=== PATIENT | female | born 1980 | race Caucasian/White ===

== ENCOUNTER 2016-08-06 13:27 | Observation (INO) | payer MEDICAID, OTHER ==
[~2016-08-06] VITALS: Ht 160 cm; Wt 95.5 kg
[~2016-08-06 13:27] MED LIST: ALB6.8IN; ALBU17AE3 IH; CEFP250T2; CLIN300C3 PO; CPR500T PO; CYCL10TA9 PO; DICY20TA57 PO; ESTR1TAB24 PO; HYDR-707 PO; HYOS0.1216 PO; IBP200T; IBP800T PO; METH4TAB PO; NAPR-243 PO; NITR100C3 PO; OXYC-12 PO; PNT40TEC PO; PRM25T PO; PROP1TAB77; PROP1TAB77 PO; SUCR1TAB23 PO; SULF1TAB34 PO; [UNRECOGNIZED DRUG - CODE] TP
--- OUTSIDE RECORDS SUMMARY | 2016-08-06 13:36 | XMS REPORT | Continuity of Care Document ---
Author Author [facility] Organization [facility] Address Unknown Phone Unavailable Care Team Providers Care Customer Care Voice Consultant Name Role Phone HEVER DOHERTY MD PCP Insurance Providers Payer Name Policy Number Subscriber Name Relationship Self Pay Yuko Aviles 19 Self / Same As Patient Advance Directives Directive Response Recorded Date/Time Advance Directives No 08/20/14 3:51pm Health Care Power of Adult High School Instructor No 08/20/14 3:51pm Organ Donor No 08/20/14 3:51pm Resuscitation Status Full Code 08/20/14 3:51pm Problems Medical Problems Problem Onset Date Status GERD (gastroesophageal reflux disease) Unknown Active Gastritis Unknown Active Medications Medication Dose Route Sig Days/Qty Instructions Order Date Discontinued Date Status Ibuprofen 07/21/08 08/16/09 Discontinued Albuterol 07/21/08 08/14/11 Discontinued Cefprozil 11/11/08 08/16/09 Discontinued Propoxyphene HCl/Acetaminophen 02/08/09 08/16/09 Discontinued Naproxen 1 Each PO TID PRN 20 Qty FOR PAIN 08/17/09 03/20/10 Discontinued Acetaminophen/Hydrocodone Bitart 1 Each PO Q 4 - 6 HR PRN 10 Qty 03/20/10 Discontinued Ibuprofen 1 Each PO THREE TIMES A DAY 10 Qty 12/21/09 03/20/10 Discontinued Dicyclomine Hcl 1 Each PO NEEDED 03/20/10 08/14/11 Discontinued Promethazine HCl 1 Tab PO EVERY 6 HOURS 30 Qty 03/27/10 08/14/11 Discontinued Estradiol 1 Mg PO DAILY 30 Qty 03/27/10 08/14/11 Discontinued Nitrofurantoin Macrocrystals 1 Cap PO TWICE A DAY 30 Qty Clcr <60 mL/ minute: Contraindicated 04/07/10 08/14/11 Discontinued Propoxyphene HCl/Acetaminophen 1 - 2 Each PO Q6HR PRN 04/07/1008/13 Discontinued Hyoscyamine Sulfate 1 Each PO Q6HR PRN 04/07/10 08/14/11 Discontinued Sulfamethoxazole/Trimethoprim 1 Tab PO TWICE A DAY 08/14/11 Discontinued Ciprofloxacin 1 Tab PO TWICE A DAY 08/14/11 01/27/12 Discontinued Albuterol 2 Puff IH NEEDED 08/14/11 Active Clindamycin HCl 1 Each PO FOUR TIMES DAILY 40 Qty 08/14/11 01/27/12 Discontinued Methylprednisolone 0 PO DIRECTED 1 Qty 08/14/11 01/27/12 Discontinued Ciclopirox Olamine 0 TP TWICE A DAY 1 Qty APPLY TO AFFECTED AREA(S) 08/1301/27/12 Discontinued Oxycodone Hcl/Acetaminophen 1 - 2 Each PO EVERY 6 HOURS PRN 14 Qty 04/17 Active Cyclobenzaprine HCl (Flexeril) 1 Each PO Q8HR PRN 10 Qty 05/16/12 Active Methylprednisolone 0 PO DIRECTED 1 Qty 05/16/12 Active Pantoprazole Sod 40 Mg PO DAILY 14 Qty 08/20/14 Active Sucralfate 1 Gm PO FOUR TIMES DAILY 40 Qty 08/20/14 Active Social History Social History Problem Response Recorded Date/Time Alcohol Use Occasionally Uses 08/20/2014 3:51pm Recreational Drug Use No 08/20/2014 3:51pm Recent Foreign Travel No 08/20/2014 3:45pm Recent Infectious Disease Exposure No 08/20/2014 3:45pm Hospitalization with Isolation Denies 08/20/2014 3:45pm Sexually Transmitted Disease No 08/20/2014 3:51pm HIV/AIDS No 08/20/2014 3:51pm Smoking Status Current Everyday Smoker 08/20/2014 3:51pm Do you dip or chew tobacco? No 08/20/2014 3:51pm Query Response Start Date Stop Date Smoking Status Current Everyday Smoker Hospital Discharge Instructions No hospital discharge instructions. Plan of Care No plan of care. Functional Status No functional status results. Allergies, Adverse Reactions, Alerts Allergen Type Severity Reaction Status Last Updated ketorolac tromethamine Allergy Mild Active 05/16/12 Iron Allergy Unknown Active 07/11/06 folic acid ([id number]) Allergy Unknown Active 07/11/06 Codeine Allergy Unknown Active 09/12/05 tramadol Allergy Unknown Active 09/12/05 butorphanol ([id number]) Allergy LOST SIGHT Active 03/20/10 penicillin G Allergy Unknown Active 07/11/06 latex Allergy Unknown Active 07/11/06 Immunizations Name Given Type Hepatitis A Yes Historical Hepatitis B Yes Historical Tetanus Booster (TDap) Unknown Historical Vital Signs Acute Vital Signs Vital Response Date/Time Temperature (Fahrenheit) 98 degrees F (97.6 - 99.5) Temperature (Calculated Celsius) 36.6696 degrees C (36.4 - 37.5) Temperature Source Temporal Pulse Rate (adult) 91 bpm (60 - 90) Respiratory Rate 20 bpm (12 - 24) O2 Sat by Pulse Oximetry 98 % (88 - 100) Blood Pressure 109/80 mm Hg Pain Pain Intensity 10 Height (Feet) 5 feet Height (Inches) 3 inches Height (Calculated Centimeters) 160.561023 cm Weight (Pounds) 200 pounds Weight (Calculated Kilograms) 90.933106 kilograms Calculated BMI 35.42 Results Laboratory Results Test Name Result Units Flags Reference Collection Date/Time Result Date/ Time Comments White Blood Count 11.8 10^3/uL H 4.3-11.0 08/20/2014 4:15pm 08/20/2014 4: 21pm Red Blood Count 4.51 10^6/uL 4.35-5.85 08/20/2014 4:15pm 08/20/2014 4: 21pm Hemoglobin 14.5 G/DL 11.5-16.0 08/20/2014 4:15pm 08/20/2014 4:21pm Hematocrit 42 % 35-52 08/20/2014 4:15pm 08/20/2014 4:21pm Mean Corpuscular Volume 94 FL 80-99 08/20/2014 4:1508/20/2014 4: 21pm Mean Corpuscular Hemoglobin 32 PG 25-34 08/20/2014 4:1508/20/2014 4: 21pm Mean Corpuscular Hemoglobin Concent 34 G/DL 32-36 08/20/2014 4:15 4:21pm Red Cell Distribution Width 12.4 % 10.0-14.5 08/20/2014 4:152014 4:21pm Platelet Count 277 10^3/uL 130-400 08/20/2014 4:1508/20/2014 4:21pm Mean Platelet Volume 10.9 FL H 7.4-10.4 08/20/2014 4:1508/20/2014 4: 21pm Neutrophils (%) (Auto) 61 % 42-75 08/20/2014 4:1508/20/2014 4:21pm Lymphocytes (%) (Auto) 30 % 12-44 08/20/2014 4:1508/20/2014 4:21pm Monocytes (%) (Auto) 7 % 0-12 08/20/2014 4:1508/20/2014 4:21pm Eosinophils (%) (Auto) 2 % 0-10 08/20/2014 4:1508/20/2014 4:21pm Basophils (%) (Auto) 1 % 0-10 08/20/2014 4:1508/20/2014 4:21pm Neutrophils # (Auto) 7.2 X 10^3 1.8-7.8 08/20/2014 4:1508/20/2014 4: 21pm Lymphocytes # (Auto) 3.5 X 10^3 1.0-4.0 08/20/2014 4:1508/20/2014 4: 21pm Monocytes # (Auto) 0.8 X 10^3 0.0-1.0 08/20/2014 4:1508/20/2014 4: 21pm Eosinophils # (Auto) 0.3 10^3/uL 0.0-0.3 08/20/2014 4:15pm 08/20/2014 4 :21pm Basophils # (Auto) 0.1 10^3/uL 0.0-0.1 08/20/2014 4:15pm 08/20/2014 4: 21pm Urine Color YELLOW 08/20/2014 4:00pm 08/20/2014 4:23pm Urine Clarity CLEAR 08/20/2014 4:00pm 08/20/2014 4:23pm Urine pH 7 5-9 08/20/2014 4:00pm 08/20/2014 4:23pm Urine Specific [place] 1.010 * 1.016-1.022 08/20/2014 4:00pm 2014 4:23pm Urine Protein NEGATIVE NEGATIVE 08/20/2014 4:00pm 08/20/2014 4:23pm Urine Glucose (UA) NEGATIVE NEGATIVE 08/20/2014 4:00pm 08/20/2014 4: 23pm Urine RBC (Auto) 2+ * NEGATIVE 08/20/2014 4:00pm 08/20/2014 4:23pm Urine Ketones NEGATIVE NEGATIVE 08/20/2014 4:00pm 08/20/2014 4:23pm Urine Nitrite NEGATIVE NEGATIVE 08/20/2014 4:00pm 08/20/2014 4:23pm Urine Bilirubin NEGATIVE NEGATIVE 08/20/2014 4:00pm 08/20/2014 4: 23pm Urine Urobilinogen NORMAL MG/DL NORMAL 08/20/2014 4:00pm 08/20/2014 4: 23pm Urine Leukocyte Esterase NEGATIVE NEGATIVE 08/20/2014 4:00pm 2014 4:23pm Urine RBC 2-5 /HPF * 08/20/2014 4:00pm 08/20/2014 4:23pm Urine WBC RARE /HPF 08/20/2014 4:00pm 08/20/2014 4:23pm Urine Bacteria NEGATIVE /HPF 08/20/2014 4:00pm 08/20/2014 4:23pm Urine Squamous Epithelial Cells 2-5 /HPF 08/20/2014 4:00pm 2014 4:23pm Urine Crystals NONE /LPF 08/20/2014 4:00pm 08/20/2014 4:23pm Urine Casts NONE /LPF 08/20/2014 4:00pm 08/20/2014 4:23pm Urine Mucus NEGATIVE /LPF 08/20/2014 4:00pm 08/20/2014 4:23pm Urine Culture Indicated NO 08/20/2014 4:00pm 08/20/2014 4:23pm Sodium Level 142 MMOL/L 135-145 08/20/2014 4:1508/20/2014 5:02pm Potassium Level 4.6 MMOL/L 3.6-5.0 08/20/2014 4:08/20/2014 5:02pm SPECIMEN WAS SLIGHTLY HEMOLYZED Chloride Level 108 MMOL/L H 98-107 08/20/2014 4:1508/20/2014 5:02pm Carbon Dioxide Level 23 MMOL/L 21-32 08/20/2014 4:08/20/2014 5: 02pm Blood Urea Nitrogen 10 MG/DL 7-18 08/20/2014 4:08/20/2014 5:02pm Creatinine 0.72 MG/DL 0.60-1.30 08/20/2014 4:08/20/2014 5:02pm BUN/Creatinine Ratio 14 08/20/2014 4:1508/20/2014 5:02pm Estimat Glomerular Filtration Rate > 60 08/20/2014 4:2014 5:02pm GFR INTERPRETIVE DATA UNITS FOR ESTIMATED GFR (eGFR): mL/min/1.73 M2 REFERENCE RANGE FOR ESTIMATED GFR (eGFR) eGFR NORMAL eGFR >60 MODERATELY DECREASED eGFR 30-59 SEVERLY DECREASED eGFR 15-29 KIDNEY FAILURE <15 (OR DIALYSIS) Glucose Level 80 MG/DL 70-105 08/20/2014 4:08/20/2014 5:02pm Calcium Level 9.9 MG/DL 8.5-10.1 08/20/2014 4:08/20/2014 5:02pm Total Bilirubin 0.4 MG/DL 0.1-1.0 08/20/2014 4:08/20/2014 5:02pm Alkaline Phosphatase 73 U/L 40-136 08/20/2014 4:08/20/2014 5:02pm Aspartate Amino Transf (AST/SGOT) 23 U/L 5-34 08/20/2014 4:2014 5:02pm Alanine Aminotransferase (ALT/SGPT) 23 U/L 0-55 08/20/2014 4:08/20 5:02pm Total Protein 7.6 G/DL 6.4-8.2 08/20/2014 4:08/20/2014 5:02pm Albumin 4.4 G/DL 3.2-4.5 08/20/2014 4:15pm 08/20/2014 5:02pm Lipase 17 U/L 8-78 08/20/2014 4:15pm 08/20/2014 5:02pm Procedures No known history of procedures. Encounters Encounter Location Date/Time Departed Emergency Room [facility] 08/20/14 2:10pm Recent Diagnosis
[2016-08-06 14:20] LABS: BASOPHILS % (AUTO) 0 % (0-10); EOSINOPHILS # (AUTO) 0.2 10^3/uL (0.0-0.3); EOSINOPHILS % (AUTO) 1 % (0-10); LYMPHOCYTES # (AUTO) 1.9 X 10^3 (1.0-4.0); LYMPHOCYTES % (AUTO) 15 % (12-44); MEAN CORPUSCULAR HEMOGLOBIN 32 PG (25-34); MEAN CORPUSCULAR HGB CONC 35 G/DL (32-36); MEAN CORPUSCULAR VOLUME 92 FL (80-99); MEAN PLATELET VOLUME 10.8 FL (7.4-10.4); MONOCYTES # (AUTO) 1.5 X 10^3 (0.0-1.0); MONOCYTES % (AUTO) 11 % (0-12); NEUTROPHILS # (AUTO) 9.7 X 10^3 (1.8-7.8); NEUTROPHILS % (AUTO) 73 % (42-75); PLATELET COUNT 281 10^3/uL (130-400); RED BLOOD COUNT 4.83 10^6/uL (4.35-5.85); RED CELL DISTRIBUTION WIDTH 12.6 % (10.0-14.5); WHITE BLOOD COUNT 13.4 10^3/uL (4.3-11.0)
[2016-08-06] MEDS ORDERED: CIPR-225 PO (14:23)
[2016-08-06] MEDS ORDERED: ESTROGEN (14:23)
[2016-08-06 14:32] LABS: PROTHROMBIN TIME PATIENT 12.4 SEC (12.2-14.7)
[2016-08-06 14:40] LABS: ALANINE AMINOTRANSFERASE 29 U/L (0-55); ALBUMIN 4.8 G/DL (3.2-4.5); ANION GAP 12 MMOL/L (5-14); ASPARTATE AMINO TRANSFERASE 24 U/L (5-34); BILIRUBIN,TOTAL 0.4 MG/DL (0.1-1.0); BLOOD UREA NITROGEN 14 MG/DL (7-18); BUN/CREATININE RATIO 8; CALCIUM 9.8 MG/DL (8.5-10.1); CARBON DIOXIDE 22 MMOL/L (21-32); CHLORIDE 107 MMOL/L (98-107); CREATININE SERUM 1.72 MG/DL (0.60-1.30); GFR ESTIMATED 34; GLUCOSE 95 MG/DL (70-105); MAGNESIUM 2.3 MG/DL (1.8-2.4); POTASSIUM 3.6 MMOL/L (3.6-5.0); SODIUM 141 MMOL/L (135-145); TOTAL PROTEIN 7.6 G/DL (6.4-8.2)
--- NOTE | 2016-08-06 14:42 | Diagnostic Imaging Report ---
Portable erect AP chest at 2:22 p.m. INDICATION: Chest and shoulder pain. FINDINGS: The heart size is within normal limits and stable when compared to 04/06/10. The lungs are generally clear. There is no sign of failure, pneumonia or pleural effusion to suggest an acute abnormality. The mediastinum is not widened. The osseous structures are intact. IMPRESSION: There is no evidence for an acute cardiopulmonary abnormality. Dictated by: Dictated on workstation # [id number]
[2016-08-06 14:46] LABS: MYOGLOBIN SERUM 44.5 NG/ML (10.0-92.0)
--- NOTE | 2016-08-06 15:01 | ED General ---
General Chief Complaint: Chest Pain Stated Complaint: CHEST PAIN Nursing Triage Note: PT STATES MID CHEST PAIN, RT SHOULDER PAIN, AND NECK PAIN THAT STARTED LAST NIGHT. "IT FEELS HEAVY ALL OVER." Nursing Sepsis Screen: No Definite Risk Source of Information: Patient Exam Limitations: No Limitations History of Present Illness Time Seen by Provider: 15:01 Initial Comments 35-year-old female patient presents to the emergency department with complaints of mid chest pain/heaviness radiating to the right shoulder, right chest, and right neck. Onset yesterday with increased symptoms today. Reports pain worse with palpation and deep breath. Also worse with movement. Does complain of heartburn, nausea, vomiting. Decreased appetite for several days. Timing/Duration: 12-24 Hours Modifying Factors: worse with Movement, worse with Other (worse with palpation and deep breath) Allergies and Home Medications Allergies Coded Allergies: ketorolac tromethamine (Verified Allergy, Mild, 05/16/12) Iodinated Contrast Media - Oral and (Unverified Allergy, Unknown, 04/24/15 ) butorphanol (Unverified Allergy, Unknown, LOST SIGHT, 04/24/15) codeine (Verified Allergy, Unknown, 09/12/05) folic acid (Verified Allergy, Unknown, 07/11/06) iron (Verified Allergy, Unknown, 07/11/06) latex (Verified Allergy, Unknown, 07/11/06) morphine (Verified Allergy, Unknown, 08/07/16) penicillin G (Verified Allergy, Unknown, 07/11/06) tramadol (Verified Allergy, Unknown, 09/12/05) Home Medications (Reported) Albuterol 17 Gm Inh 2 PUFF IH PRN (Reported) Ciprofloxacin HCl 500 Mg Tablet 500 MG PO (Reported) Pantoprazole Sod 40 Mg Tab #14 40 MG PO DAILY Prescribed by: NISH AVENDAÑO on 08/20/14 8931 Constitutional: No chills, No diaphoresis, No dizziness, No fever, No malaise EENTM: no symptoms reported Respiratory: No cough, No dyspnea on exertion, No short of breath, No stridor, No wheezing Cardiovascular: chest painNo edema, No palpitations, No syncope Gastrointestinal: abdominal pain (epigastric pain)No constipation, No diarrhea , No dysphagia, No hematemesis, heartburn loss of appetiteNo melena, nauseaNo vomiting Musculoskeletal: joint painNo joint swelling, muscle pain muscle stiffness neck pain Skin: no symptoms reported Psychiatric/Neurological: Denies Headache, Denies Numbness, Denies Paresthesia , Denies Seizure, Denies Tingling, Denies Weakness All Other Systems Reviewed Negative Unless Noted: Yes (Negative excepted noted.) Past Cfzhejv-Bsyxey-Lfykbf Hx Patient Social History Alcohol Use: Rarely Uses Recreational Drug Use: No Smoking Status: Current Everyday Smoker Type Used: Cigarettes Recent Foreign Travel: No Contact w/Someone Who Travel: No Recent Infectious Disease Expo: No Recent Hopitalizations: No (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 LAVH WITH BSO ) Immunizations Up To Date Tetanus Booster (TDap): Unknown PED Vaccines UTD: Yes Seasonal Allergies Seasonal Allergies: Yes Surgeries HX Surgeries: Yes (wisdom teeth, laporotomy) Surgeries: Hysterectomy Respiratory Hx Respiratory Disorders: Yes Respiratory Disorders: Asthma Cardiovascular Hx Cardiac Disorders: No Neurological Hx Neurological Disorders: Yes ("I MIGHT HAVE MS.") Neurological Disorders: Headaches /Migraines Reproductive System : No Hx Reproductive Disorders: No (MENORRHAGIA, CERVICAL DYSPLAGIA) Sexually Transmitted Disease: No HIV/AIDS: No [facility] History: Hysterectomy Genitourinary Hx Genitourinary Disorders: Yes (FREQUENT UTI) Genitourinary Disorders: UTI-Chronic Gastrointestinal Hx Gastrointestinal Disorders: No Musculoskeletal Hx Musculoskeletal Disorders: No Endocrine Hx Endocrine Disorders: No HEENT HX ENT Disorders: Yes (BAD TEETH) Cancer Hx Cancer: No Psychosocial Hx Psychiatric Problems: No Blood Transfusions Hx Blood Disorders: No Reviewed Nursing Assessment Reviewed/Agree w Nursing PMH: Yes Family Medical History Significant Family History: No Pertinent Family Hx Physical Exam Vital Signs Vital Sign - Last 12Hours 08/06/16 14:14 Temp 97.4 Pulse 104 Resp 22 B/P 126/96 Pulse Ox 97 O2 Delivery Room Air Capillary Refill : Less Than 3 Seconds General Appearance: No Apparent Distress WD/WN HEENT: PERRL/EOMI Pharynx Normal Neck: Full Range of Motion Supple Tender LateralNo Tender Midline, Other ( muscle spasm right neck) Respiratory: Lungs Clear Normal Breath Sounds No Respiratory Distress Other ( right chest to palpation with muscle spasm noted of the right pectoral muscles) Cardiovascular: Regular Rate, Rhythm No Edema No Murmur Normal Peripheral Pulses Gastrointestinal: Normal Bowel Sounds No Organomegaly SoftNo Distended, Guarding (epigastric)No Rebound, Tenderness (epigastric tenderness) Back: No Vertebral Tenderness Extremity: Normal Capillary Refill Normal Range of Motion Other (tenderness with muscle spasm of the rt pectoral muscle, rt anterior/superior/posterior shoulder, and right neck.) Neurologic/Psychiatric: Alert Oriented x3 No Motor/Sensory Deficits Other ( flat affect. argumentative. ) Skin: Normal Color Warm/Dry Progress/Results/Core Measures Results/Orders Lab Results Laboratory Tests Test 08/07/16 05:20 Range/Units Alanine Aminotransferase (ALT/SGPT) 20 0-55 U/L Albumin 3.4 3.2-4.5 G/DL Alkaline Phosphatase 56 40-136 U/L Anion Gap 10 5-14 MMOL/L Aspartate Amino Transf (AST/SGOT) 18 5-34 U/L BUN/Creatinine Ratio 8 Basophils # (Auto) 0.0 0.0-0.1 10^3/uL Basophils (%) (Auto) 0 0-10 % Blood Urea Nitrogen 13 7-18 MG/DL Calcium Level 8.1 L 8.5-10.1 MG/DL Carbon Dioxide Level 20 L 21-32 MMOL/L Chloride Level 113 H 98-107 MMOL/L Cholesterol Level 165 < 200 MG/DL Creatinine 1.63 H 0.60-1.30 MG/DL Eosinophils # (Auto) 0.3 0.0-0.3 10^3/uL Eosinophils (%) (Auto) 3 0-10 % Estimat Glomerular Filtration Rate 36 Glucose Level 90 70-105 MG/DL HDL Cholesterol 20 L 40-60 MG/DL Hematocrit 39 35-52 % Hemoglobin 13.1 11.5-16.0 G/DL LDL Cholesterol Direct 121 1-129 MG/DL Lymphocytes # (Auto) 3.7 1.0-4.0 X 10^3 Lymphocytes (%) (Auto) 33 12-44 % Mean Corpuscular Hemoglobin 32 25-34 PG Mean Corpuscular Hemoglobin Concent 34 32-36 G/DL Mean Corpuscular Volume 95 80-99 FL Mean Platelet Volume 11.3 H 7.4-10.4 FL Monocytes # (Auto) 1.0 0.0-1.0 X 10^3 Monocytes (%) (Auto) 9 0-12 % Neutrophils # (Auto) 6.1 1.8-7.8 X 10^3 Neutrophils (%) (Auto) 55 42-75 % Platelet Count 240 130-400 10^3/uL Potassium Level 4.0 3.6-5.0 MMOL/L Red Blood Count 4.08 L 4.35-5.85 10^6/uL Red Cell Distribution Width 12.6 10.0-14.5 % Sodium Level 143 135-145 MMOL/L Total Bilirubin 0.4 0.1-1.0 MG/DL Total Protein 5.6 L 6.4-8.2 G/DL Triglycerides Level 153 H <150 MG/DL Troponin I < 0.30 <0.30 NG/ML VLDL Cholesterol 31 5-40 MG/DL White Blood Count 11.1 H 4.3-11.0 10^3/uL My Orders Orders-JOHANN SUTTON Ua Culture If Indicated (08/06/16 15:51) Ibuprofen Tablet (Motrin Tablet) (08/06/16 17:20) Medications Given in ED Vital Signs/I&O Blood Pressure Mean: 106 ECG Initial ECG Impression Date: Aug 06, 2016 Initial ECG Impression Time: 14:02 Initial ECG Rate: 106 Initial ECG Rhythm: S.Tach Initial ECG Comparisson: Changed Comment Sinus tachycardia. No STEMI or arrhythmia noted. EKG reviewed and discussed with Dr. Conti. Diagnostic Imaging Diagonstic Imaging: Xray Plain Films/CT/US/NM/MRI: chest Comments FINDINGS: The heart size is within normal limits and stable when compared to 04/06/10. The lungs are generally clear. There is no sign of failure, pneumonia or pleural effusion to suggest an acute abnormality. The mediastinum is not widened. The osseous structures are intact. IMPRESSION: There is no evidence for an acute cardiopulmonary abnormality. Dictated on workstation # [id number] Reviewed: Reviewed by Me (radiology report reviewed by me) Departure Communication Time/Spoke to Admitting Phy: 14:[address] Barnes accepts patient to her medical service for IVF, repeat labs, and further management. Progress Notes Patient requesting ibuprofen for pain. States she can take ibuprofen, but unable to take Toradol. Patient refuses Tylenol and states she is allergic to all other pain medications. Will give 1 dose of ibuprofen. Following ibuprofen administration patient continues to complain of chest wall pain rated as a 9/10. Reports ibuprofen works for only a short time. Patient case discussed with Dr. Barnes accepts patient to her medical service for IV fluids, repeat labs, and further management. All laboratory and diagnostic findings discussed with the patient as well as plan for admission. Patient voices understanding and agrees with the treatment plan. Patient case discussed with Dr. Conti, he agrees with the plan of care. Impression Impression: Primary Impression: Renal insufficiency Additional Impressions: Atypical chest pain Muscle strain Disposition: ADMITTED INPATIENT Condition: Stable Decision to Admit Reason: Admit from ER (General) Decision to Admit/Date: Aug 06, 2016 Time/Decision to Admit Time: 14:45 Departure-Patient Inst. Referrals: HEVER DOHERTY MD (PCP/Family) Primary Care Physician JOHANN SUTTON Aug 06, 2016 15:01 Urine Bedside (08/06/16 14:07) Acetaminophen Tablet (Tylenol Tablet) (08/06/16 15:17) Orphenadrine Injection (Norflex Injectio (08/06/16 15:17) Ns Iv 1000 Ml (Sodium Chloride 0.9%) (08/06/16 15:17) Ondansetron Injection (Zofran Injectio (08/06/16 15:30) Famotidine Injection (Pepcid Injection) (08/06/16 15:19) Ua Culture If Indicated (08/06/16 15:51) Ibuprofen Tablet (Motrin Tablet) (08/06/16 17:20) Medications Given in ED Current Medications Medications Dose Ordered Sig/Berto Route Start Time Stop Time Status Last Admin Dose Admin Ondansetron HCl 4 mg ONCE ONCE IVP 08/06/16 15:30 08/06/16 15:31 DC 08/06/16 15:40 4 MG Sodium Chloride 1,000 ml @ 0 mls/hr Q0M ONCE IV 08/06/16 15:17 08/06/16 15:20 DC 08/06/16 15:39 999 MLS/HR Vital Signs/I&O Vital Sign - Last 12Hours 08/06/16 08/06/16 08/06/16 08/06/16 14:14 14:20 18:22 18:30 Temp 97.4 98.9 98.6 Pulse 104 78 85 Resp 22 14 16 B/P 126/96 108/66 Pulse Ox 97 97 98 O2 Delivery Room Air Room Air Room Air 08/06/16 08/07/16 08/07/16 20:00 01:00 01:12 Temp 98.5 Pulse 83 77 Resp 16 B/P 100/61 Pulse Ox 98 O2 Delivery Room Air Room Air Blood Pressure Mean: 106 ECG Initial ECG Impression Date: Aug 06, 2016 Initial ECG Impression Time: 14:02 Initial ECG Rate: 106 Initial ECG Rhythm: S.Tach Initial ECG Comparisson: Changed Comment Sinus tachycardia. No STEMI or arrhythmia noted. EKG reviewed and discussed with Dr. Conti. Diagnostic Imaging Diagonstic Imaging: Xray Plain Films/CT/US/NM/MRI: chest Comments FINDINGS: The heart size is within normal limits and stable when compared to 04/06/10. The lungs are generally clear. There is no sign of failure, pneumonia or pleural effusion to suggest an acute abnormality. The mediastinum is not widened. The osseous structures are intact. IMPRESSION: There is no evidence for an acute cardiopulmonary abnormality. Dictated on workstation # [id number] Reviewed: Reviewed by Me (radiology report reviewed by me) Departure Communication Time/Spoke to Admitting Phy: 14:[address] Barnes accepts patient to her medical service for IVF, repeat labs, and further management. Progress Notes Patient requesting ibuprofen for pain. States she can take ibuprofen, but unable to take Toradol. Impression Impression: Primary Impression: Renal insufficiency Additional Impressions: Atypical chest pain Muscle strain Disposition: ADMITTED INPATIENT Condition: Stable Decision to Admit Reason: Admit from ER (General) Decision to Admit/Date: Aug 06, 2016 Time/Decision to Admit Time: 14:45 Departure-Patient Inst. Referrals: HEVER DOHERTY MD (PCP/Family) Primary Care Physician JOHANN SUTTON Aug 06, 2016 15:01
[2016-08-06] MEDS ORDERED: NS IV 1000 ML 1,000 ML IV ONE (15:17)
[2016-08-06] MEDS ORDERED: ORPHENADRINE 60 MG/2 ML (NORFLEX) AMP IV STA (15:17)
[2016-08-06] MEDS ORDERED: ACETAMINOPHEN 500 MG TAB (TYLENOL) PO STA (15:17)
[2016-08-06] MEDS ORDERED: FAMOTIDINE 20MG/2ML IV (PEPCID) IV STA (15:19)
[2016-08-06] MEDS ORDERED: ONDANSETRON 4 MG/2 ML (SDV) Z0FRAN IVP ONE (15:30)
[2016-08-06 16:04] LABS: BILIRUBIN,URINE NEGATIVE (NEGATIVE); KETONES,URINE NEGATIVE (NEGATIVE); LEUKOCYTE ESTERASE ,URINE NEGATIVE (NEGATIVE); NITRITE,URINE NEGATIVE (NEGATIVE); PH,URINE 6.5 (5-9); PROTEIN,URINE NEGATIVE (NEGATIVE); UROBILINOGEN,URINE NORMAL (NORMAL)
[2016-08-06 16:14] LABS: SQUAMOUS EPITHELIAL CELL,UR 0-2 /HPF
[2016-08-06] MEDS ORDERED: IBUPROFEN 800 MG (MOTRIN) TAB PO STA (17:20)
[2016-08-06 18:30] VITALS: BP 108/66
[2016-08-06] MEDS ORDERED: NS W/KCL 20 MEQ/L 1,000 ML IV ONE (19:35)
[2016-08-06] MEDS ORDERED: ACETAMINOPHEN 500 MG TAB (TYLENOL) PO PRN (19:45)
[2016-08-06 20:00] VITALS: BP 100/61
[2016-08-06] MEDS: NS W/KCL 20 MEQ/L 1,000 ML IV SCH (20:37)
[2016-08-06] MEDS ORDERED: FAMOTIDINE 20MG/2ML IV (PEPCID) IV SCH (21:00)
[2016-08-06] MEDS ORDERED: NICOTINE 14 MG (NICODERM) PATCH TD ONE (23:20)
[2016-08-06] MEDS: NICOTINE 14 MG (NICODERM) PATCH TD SCH (23:24)
[2016-08-06] MEDS: IBUPROFEN 600 MG (MOTRIN) TAB PO PRN (23:27)
[2016-08-07] VITALS: BP 101/61
[2016-08-07] MEDS: ONDANSETRON 4 MG/2 ML (SDV) Z0FRAN IV PRN ×2 (00:16→05:48)
[2016-08-07] MEDS: HYDROcodone/APAP 5 MG/325 MG (LORTAB) TAB PO PRN ×2 (00:16→05:48)
[2016-08-07] MEDS: NS W/KCL 20 MEQ/L 1,000 ML IV SCH ×2 (02:25→03:32)
[2016-08-07 04:00] VITALS: BP 106/72
[2016-08-07] MEDS: IBUPROFEN 600 MG (MOTRIN) TAB PO PRN (05:08)
[2016-08-07 06:01] LABS: BASOPHILS % (AUTO) 0 % (0-10); EOSINOPHILS # (AUTO) 0.3 10^3/uL (0.0-0.3); EOSINOPHILS % (AUTO) 3 % (0-10); LYMPHOCYTES # (AUTO) 3.7 X 10^3 (1.0-4.0); LYMPHOCYTES % (AUTO) 33 % (12-44); MEAN CORPUSCULAR HEMOGLOBIN 32 PG (25-34); MEAN CORPUSCULAR HGB CONC 34 G/DL (32-36); MEAN CORPUSCULAR VOLUME 95 FL (80-99); MEAN PLATELET VOLUME 11.3 FL (7.4-10.4); MONOCYTES % (AUTO) 9 % (0-12); NEUTROPHILS # (AUTO) 6.1 X 10^3 (1.8-7.8); NEUTROPHILS % (AUTO) 55 % (42-75); PLATELET COUNT 240 10^3/uL (130-400); RED BLOOD COUNT 4.08 10^6/uL (4.35-5.85); RED CELL DISTRIBUTION WIDTH 12.6 % (10.0-14.5); WHITE BLOOD COUNT 11.1 10^3/uL (4.3-11.0)
[2016-08-07 06:25] LABS: CHOLESTEROL 165 MG/DL (< 200); DIRECT LDL 121 MG/DL (1-129); TRIGLYCERIDES 153 MG/DL (<150); VLDL CHOLESTEROL 31 MG/DL (5-40)
[2016-08-07 06:40] LABS: ALANINE AMINOTRANSFERASE 20 U/L (0-55); ALBUMIN 3.4 G/DL (3.2-4.5); ANION GAP 10 MMOL/L (5-14); ASPARTATE AMINO TRANSFERASE 18 U/L (5-34); BILIRUBIN,TOTAL 0.4 MG/DL (0.1-1.0); BLOOD UREA NITROGEN 13 MG/DL (7-18); BUN/CREATININE RATIO 8; CALCIUM 8.1 MG/DL (8.5-10.1); CARBON DIOXIDE 20 MMOL/L (21-32); CHLORIDE 113 MMOL/L (98-107); CREATININE SERUM 1.63 MG/DL (0.60-1.30); GFR ESTIMATED 36; GLUCOSE 90 MG/DL (70-105); SODIUM 143 MMOL/L (135-145); TOTAL PROTEIN 5.6 G/DL (6.4-8.2)
[2016-08-07 08:11] VITALS: BP 100/60
[2016-08-07] MEDS: NICOTINE 14 MG (NICODERM) PATCH TD SCH (08:33)
[2016-08-07] MEDS ORDERED: PATCH REMOVAL TP SCH (09:00)
--- NOTE | 2016-08-07 19:42 | Short Stay Summary ---
HPI History of Present Illness: Patient left AMA prior to being seen Attending Physician Hever Doherty MD PCP Hever Doherty MD Consult Date of Admission Aug 06, 2016 at 18:06 Home Medications Home Medications Reviewed patient Home Medication Reconciliation Form Allergies Coded Allergies: ketorolac tromethamine (Verified Allergy, Mild, 05/16/12) Iodinated Contrast Media - Oral and (Unverified Allergy, Unknown, 04/24/15 ) butorphanol (Unverified Allergy, Unknown, LOST SIGHT, 04/24/15) codeine (Verified Allergy, Unknown, 09/12/05) folic acid (Verified Allergy, Unknown, 07/11/06) iron (Verified Allergy, Unknown, 07/11/06) latex (Verified Allergy, Unknown, 07/11/06) morphine (Verified Allergy, Unknown, 08/07/16) penicillin G (Verified Allergy, Unknown, 07/11/06) tramadol (Verified Allergy, Unknown, 09/12/05) [id number]-Jzicup Hx Patient Social History Alcohol Use: Rarely Uses Recreational Drug Use: No Smoking Status: Current Everyday Smoker Type Used: Cigarettes Recent Foreign Travel: No Contact w/other who traveled: No Recent Hopitalizations: No (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 LAVH WITH BSO ) Recent Infectious Disease Expo: No Physical Abuse Screen: No Sexual Abuse: No Immunizations Up To Date Tetanus Booster (TDap): Unknown Family Medical History Significant Family History: No Pertinent Family Hx Family History: Asthma SON SON FH: cancer AUNT UNCLE Review of Systems ([facility]) Constitutional: other (No ROS) Physical Exam-([facility]) Physical Exam Vital Signs VS - Last 72 Hours, by Label 08/06/16 08/06/16 08/06/16 08/06/16 14:14 14:20 18:22 18:30 Temp 97.4 98.9 98.6 Pulse 104 78 85 Resp 22 14 16 B/P 126/96 108/66 Pulse Ox 97 97 98 O2 Delivery Room Air Room Air Room Air 08/06/16 08/07/16 08/07/16 08/07/16 20:00 00:00 01:00 01:12 Temp 98.5 97.8 Pulse 83 81 77 Resp 16 17 B/P 100/61 101/61 Pulse Ox 98 96 O2 Delivery Room Air Room Air Room Air 3/09/2008/07/16 08/07/16 04:00 07:00 08:11 Temp 98.7 97.2 Pulse 83 78 74 Resp 17 20 B/P 106/72 100/60 Pulse Ox 98 98 O2 Delivery Room Air Room Air Capillary Refill : Less Than 3 Seconds General Appearance: other (Patient was not seen) Short Stay Diagnosis Discharge Diagnosis-Short Stay Admission Diagnosis Acute Renal Insufficiency Atypical Chest pain Neck pain Final Discharge Diagnosis See Above Conclusion Plan Patient Left AMA prior to being seen Clinical Quality Measures AMI/AHF: ASA po Prior to arrival: No DVT/VTE Risk/Contraindication: Risk Factor Score Per Nursin RFS Level Per Nursing on Admit: 2=Moderate Copy Copies To 1: HEVER DOHERTY MD, HOLLY R MD Aug 07, 2016 19:42
== END 2016-08-07 09:35 | disposition left against medical advice (07) ==
LOC: EDUNIT# 13:27 → ER 13:31 → 4TH 18:06 → UNDOADMOB 18:06 → 4TH 18:33 → UNDODISOB 08-07 09:35
PROVIDERS: ADMIT Family Medicine; ATTEND Family Medicine
DX: N28.9 Disorder of kidney and ureter, unspecified (principal); R07.89 Other chest pain; M54.2 Cervicalgia
CPT/HCPCS: 36415; 71010; 80053; 80061; 81000; 83735; 83874; 84484; 85025; 85610; 85730; 93005; 96361; 96374; 96375; G0378

== ENCOUNTER → 2017-02-11 | Outpatient (CLI) | payer MEDICAID ==
[~2017-02-11] MED LIST changes: +CIPR-225 PO; +ESTROGEN
--- NOTE | 2017-02-11 17:53 | Diagnostic Imaging Report ---
PROCEDURE: MR imaging of the brain without contrast. TECHNIQUE: Multiplanar, multisequence MR imaging of the brain was performed without contrast. INDICATION: 36-year-old female with right arm and leg numbness and tingling for four days. Patient also reports some aphasia with word finding difficulty. COMPARISONS: 04/24/2015. FINDINGS: Midline structures are not displaced. The lateral, third, and fourth ventricles are normal in size, shape, and anatomic position. There is no evidence of mass, mass effect, hydrocephalus, or hemorrhage. Joshua-white differentiation is normal. There is no sulcal effacement. No areas of diffusion restriction or diffusion signal abnormalities seen. There are no abnormal extra-axial fluid collections or hemorrhage. Petrous apices as well as the seventh and eighth nerve complexes are normal. Semicircular canals and cochlea show normal signal. Visualized vascular flow voids are unremarkable. Sinuses, orbits, and mastoid air cells are also normal. IMPRESSION: Unremarkable nonenhanced MRI brain. Dictated by: Dictated on workstation # [id number]
== END ==
LOC: RAD 16:51
PROVIDERS: ATTEND Family Medicine
DX: R20.2 Paresthesia of skin (principal); G83.11 Monoplegia of lower limb affecting right dominant side; G83.21 Monoplegia of upper limb affecting right dominant side
CPT/HCPCS: 70551

== ENCOUNTER → 2017-06-08 | Outpatient (CLI) | payer MEDICAID ==
--- NOTE | 2017-06-08 09:44 | Diagnostic Imaging Report ---
INDICATION: Positive PPD. COMPARISON: 08/06/2016 FINDINGS: 2 views of the chest are obtained. Heart size is normal. The pulmonary vessels appear unremarkable. There is no pneumothorax, mediastinal widening or pleural fluid demonstrated. The lungs are clear. There is no evidence of TB. The osseous structures appear unremarkable. IMPRESSION: No acute abnormality is demonstrated. No significant interval change from the prior study. Dictated by: Dictated on workstation # [id number]
== END ==
LOC: RAD 09:08
PROVIDERS: ATTEND Internal Medicine
DX: R76.11 Nonspecific reaction to tuberculin skin test without active tuberculosis (principal)
CPT/HCPCS: 71046

== ENCOUNTER → 2017-08-10 | Outpatient (CLI) | payer MEDICAID ==
--- NOTE | 2017-08-10 11:27 | Diagnostic Imaging Report ---
INDICATION: Cough COMPARISON: 06/08/2017 FINDINGS: Two views of the chest were obtained. Heart size is normal. The pulmonary vessels appear unremarkable. There is no pneumothorax, mediastinal widening or pleural fluid. There is some streaky opacity at the left lung base which is new and probably represent atelectasis or minimal infiltrate. The right lung appears clear. The osseous structures are unremarkable. IMPRESSION: Minimal left basilar atelectasis or infiltrate. Dictated by: Dictated on workstation # [id number]
== END ==
LOC: RAD 10:25
PROVIDERS: ATTEND Family Medicine
DX: R05 Cough (principal)
CPT/HCPCS: 71046

== ENCOUNTER 2018-08-03 21:58 | Emergency (ER) | payer MEDICAID ==
[~2018-08-03] VITALS: Ht 160 cm; Wt 95.5 kg
--- NOTE | 2018-08-03 23:15 | NUR ---
PT REFUSED FLU SWAB R/T HAVING DONE YESTERDAY IN DR. DOHERTY'S OFFICE AND WAS NEGATIVE FOR FLU A AND B.
[2018-08-03 23:16] LABS: BILIRUBIN,URINE NEGATIVE (NEGATIVE); CLARITY,URINE CLEAR; COLOR,URINE YELLOW; GLUCOSE, URINE (UA) NEGATIVE (NEGATIVE); KETONES,URINE NEGATIVE (NEGATIVE); LEUKOCYTE ESTERASE ,URINE 2+ (NEGATIVE); NITRITE,URINE NEGATIVE (NEGATIVE); PH,URINE 6.5 (5-9); PROTEIN,URINE NEGATIVE (NEGATIVE); UROBILINOGEN,URINE NORMAL (NORMAL)
[2018-08-03 23:38] LABS: AMPHETAMINE SCREEN, URINE NEGATIVE (NEGATIVE); BARBITURATE SCREEN URINE NEGATIVE (NEGATIVE); BENZODIAZEPINES SCREEN URINE NEGATIVE (NEGATIVE); CANNABINOID SCREEN, URINE NEGATIVE (NEGATIVE); COCAINE SCREEN URINE NEGATIVE (NEGATIVE); METHADONE STAT NEGATIVE (NEGATIVE); METHAMPHETAMINE SCREEN URINE S NEGATIVE (NEGATIVE); OPIATE SCREEN URINE NEGATIVE (NEGATIVE); OXYCODONE STAT NEGATIVE (NEGATIVE); PROPOXYPHENE STAT NEGATIVE (NEGATIVE); TRICYCLIC ANTIDEPRESSANTS SCRE NEGATIVE (NEGATIVE)
[2018-08-03 23:48] LABS: BACTERIA,URINE FEW /HPF; RBC,URINE 0-2 /HPF; WBC,URINE 0-2 /HPF
[2018-08-03 23:49] LABS: TRICHOMONAS,URINE MODERATE /HPF
[2018-08-03 23:55] LABS: BASOPHILS % (AUTO) 1 % (0-10); EOSINOPHILS # (AUTO) 0.2 10^3/uL (0.0-0.3); EOSINOPHILS % (AUTO) 3 % (0-10); HEMATOCRIT 45 % (35-52); HEMOGLOBIN 15.2 G/DL (11.5-16.0); LYMPHOCYTES # (AUTO) 3.3 X 10^3 (1.0-4.0); LYMPHOCYTES % (AUTO) 47 % (12-44); MEAN CORPUSCULAR HEMOGLOBIN 32 PG (25-34); MEAN CORPUSCULAR HGB CONC 34 G/DL (32-36); MEAN CORPUSCULAR VOLUME 94 FL (80-99); MEAN PLATELET VOLUME 11.4 FL (7.4-10.4); MONOCYTES # (AUTO) 0.6 X 10^3 (0.0-1.0); MONOCYTES % (AUTO) 8 % (0-12); NEUTROPHILS # (AUTO) 2.9 X 10^3 (1.8-7.8); NEUTROPHILS % (AUTO) 41 % (42-75); PLATELET COUNT 232 10^3/uL (130-400); WHITE BLOOD COUNT 6.9 10^3/uL (4.3-11.0)
[2018-08-04 00:25] LABS: ALANINE AMINOTRANSFERASE 42 U/L (0-55); ALBUMIN 4.7 GM/DL (3.2-4.5); ALKALINE PHOSPHATASE 78 U/L (40-136); BILIRUBIN,TOTAL 0.4 MG/DL (0.1-1.0); BUN/CREATININE RATIO 10; CALCIUM 10.3 MG/DL (8.5-10.1); CARBON DIOXIDE 25 MMOL/L (21-32); CHLORIDE 105 MMOL/L (98-107); CREATININE SERUM 0.84 MG/DL (0.60-1.30); GFR ESTIMATED > 60; GLUCOSE 98 MG/DL (70-105); MAGNESIUM 2.5 MG/DL (1.8-2.4); POTASSIUM 3.4 MMOL/L (3.6-5.0); SODIUM 141 MMOL/L (135-145); TOTAL PROTEIN 7.6 GM/DL (6.4-8.2)
[2018-08-04] MEDS ORDERED: ACETAMINOPHEN 500 MG TAB (TYLENOL) PO ONE (00:45)
[2018-08-04] MEDS ORDERED: METR500T PO (00:59)
[2018-08-04] MEDS ORDERED: NITR-65 PO (00:59)
--- NOTE | 2018-08-04 00:59 | ED General ---
General Chief Complaint: General Problems/Pain Stated Complaint: HEADACHE,LETHARGIC Allergies and Home Medications Allergies Coded Allergies: ketorolac tromethamine (Verified Allergy, Mild, 05/16/12) Iodinated Contrast Media - Oral and (Unverified Allergy, Unknown, 04/24/15 ) butorphanol (Unverified Allergy, Unknown, LOST SIGHT, 04/24/15) codeine (Verified Allergy, Unknown, 09/12/05) folic acid (Verified Allergy, Unknown, 07/11/06) iron (Verified Allergy, Unknown, 07/11/06) latex (Verified Allergy, Unknown, 07/11/06) morphine (Verified Allergy, Unknown, 08/07/16) penicillin G (Verified Allergy, Unknown, 07/11/06) tramadol (Verified Allergy, Unknown, 09/12/05) Home Medications Albuterol 17 Gm Inh, 2 PUFF IH PRN, (Reported) Pantoprazole Sod 40 Mg Tab, 40 MG PO DAILY Prescribed by: NISH AVENDAÑO on 08/20/14 1704 Past Cxzmcwp-Hezkkg-Zhvyxk Hx Patient Social History Alcohol Beverage of Choice: Wine Type Used: Cigarettes Recent Foreign Travel: No Contact w/Someone Who Travel: No Recent Hopitalizations: No (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 LAVH WITH BSO ) Immunizations Up To Date Tetanus Booster (TDap): Unknown PED Vaccines UTD: Yes Seasonal Allergies Seasonal Allergies: Yes Past Medical History Surgeries: Yes (wisdom teeth, laporotomy) Hysterectomy Respiratory: Yes Asthma Currently Using CPAP: No Currently Using BIPAP: No Cardiac: No Neurological: No Headaches /Migraines Reproductive Disorders: No (MENORRHAGIA, CERVICAL DYSPLAGIA) [employer]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 7.0oz. 95.963342hz; 37.3 BMI Method:Stated Progress/Results/Core Measures Suspected Sepsis SIRS Temperature: Pulse: Respiratory Rate: Laboratory Tests 08/03/18 23:45: White Blood Count 6.9 Blood Pressure / Mean: Laboratory Tests 08/03/18 23:45: Creatinine 0.84, Platelet Count 232, Total Bilirubin 0.4 Results/Orders Lab Results Laboratory Tests Test 08/03/18 23:07 08/03/18 23:45 08/03/18 23:58 Range/Units Urine Color YELLOW Urine Clarity CLEAR Urine pH 6.5 5-9 Urine Specific [place] 1.010 L 1.016-1.022 Urine Protein NEGATIVE NEGATIVE Urine Glucose (UA) NEGATIVE NEGATIVE Urine Ketones NEGATIVE NEGATIVE Urine Nitrite NEGATIVE NEGATIVE Urine Bilirubin NEGATIVE NEGATIVE Urine Urobilinogen NORMAL NORMAL MG/DL Urine Leukocyte Esterase 2+ H NEGATIVE Urine RBC (Auto) 3+ H NEGATIVE Urine RBC 0-2 /HPF Urine WBC 0-2 /HPF Urine Squamous Epithelial Cells 2-5 /HPF Urine Crystals NONE /LPF Urine Bacteria FEW H /HPF Urine Casts NONE /LPF Urine Mucus NEGATIVE /LPF Urine Trichomonas MODERATE H /HPF Urine Culture Indicated YES Urine Opiates Screen NEGATIVE NEGATIVE Urine Oxycodone Screen NEGATIVE NEGATIVE Urine Methadone Screen NEGATIVE NEGATIVE Urine Propoxyphene Screen NEGATIVE NEGATIVE Urine Barbiturates Screen NEGATIVE NEGATIVE Ur Tricyclic Antidepressants Screen NEGATIVE NEGATIVE Urine Phencyclidine Screen NEGATIVE NEGATIVE Urine Amphetamines Screen NEGATIVE NEGATIVE Urine Methamphetamines Screen NEGATIVE NEGATIVE Urine Benzodiazepines Screen NEGATIVE NEGATIVE Urine Cocaine Screen NEGATIVE NEGATIVE Urine Cannabinoids Screen NEGATIVE NEGATIVE White Blood Count 6.9 4.3-11.0 10^3/uL Red Blood Count 4.75 4.35-5.85 10^6/uL Hemoglobin 15.2 11.5-16.0 G/DL Hematocrit 45 35-52 % Mean Corpuscular Volume 94 80-99 FL Mean Corpuscular Hemoglobin 32 25-34 PG Mean Corpuscular Hemoglobin Concent 34 32-36 G/DL Red Cell Distribution Width 13.0 10.0-14.5 % Platelet Count 232 130-400 10^3/uL Mean Platelet Volume 11.4 H 7.4-10.4 FL Neutrophils (%) (Auto) 41 L 42-75 % Lymphocytes (%) (Auto) 47 H 12-44 % Monocytes (%) (Auto) 8 0-12 % Eosinophils (%) (Auto) 3 0-10 % Basophils (%) (Auto) 1 0-10 % Neutrophils # (Auto) 2.9 1.8-7.8 X 10^3 Lymphocytes # (Auto) 3.3 1.0-4.0 X 10^3 Monocytes # (Auto) 0.6 0.0-1.0 X 10^3 Eosinophils # (Auto) 0.2 0.0-0.3 10^3/uL Basophils # (Auto) 0.0 0.0-0.1 10^3/uL Sodium Level 141 135-145 MMOL/L Potassium Level 3.4 L 3.6-5.0 MMOL/L Chloride Level 105 98-107 MMOL/L Carbon Dioxide Level 25 21-32 MMOL/L Anion Gap 11 5-14 MMOL/L Blood Urea Nitrogen 8 7-18 MG/DL Creatinine 0.84 0.60-1.30 MG/DL Estimat Glomerular Filtration Rate > 60 BUN/Creatinine Ratio 10 Glucose Level 98 70-105 MG/DL Calcium Level 10.3 H 8.5-10.1 MG/DL Corrected Calcium 8.5-10.1 MG/DL Magnesium Level 2.5 H 1.8-2.4 MG/DL Total Bilirubin 0.4 0.1-1.0 MG/DL Aspartate Amino Transf (AST/SGOT) 32 5-34 U/L Alanine Aminotransferase (ALT/SGPT) 42 0-55 U/L Alkaline Phosphatase 78 40-136 U/L Total Protein 7.6 6.4-8.2 GM/DL Albumin 4.7 H 3.2-4.5 GM/DL Urine Test NEGATIVE NEGATIVE My Orders Orders - WENDIE BROWN DO Influenza A And B Antigens (08/03/18 23:07) Urine Bedside (08/03/18 23:09) Drug Screen Stat (Urine) (08/03/18 23:09) Ua Culture If Indicated (08/03/18 23:09) Saline Lock/Iv-Start (08/03/18 23:29) Cbc With Automated Diff (08/03/18 23:29) Comprehensive Metabolic Panel (08/03/18 23:29) Magnesium (08/03/18 23:29) Urine Culture (08/03/18 23:07) Ct Head Wo (08/04/18 00:01) Hcg,Qualitative Urine (08/03/18 23:56) Acetaminophen Tablet (Tylenol Tablet) (08/04/18 00:45) Medications Given in ED Current Medications Medications Dose Ordered Sig/Berto Route Start Time Stop Time Status Last Admin Dose Admin Acetaminophen 1,000 mg ONCE ONCE PO 08/04/18 00:45 08/04/18 00:46 DC 08/04/18 00:53 1,000 MG Vital Signs/I&O Capillary Refill : Departure Impression Primary Impression: Headache Additional Impressions: UTI (urinary tract infection) Trichomonal infection Disposition: HOME, SELF-CARE Condition: Stable Departure-Patient Inst. Referrals: HEVER DOHERTY MD (PCP/Family) Primary Care Physician Patient Instructions: Headache, Adult (DC), Trichomoniasis (DC), Urinary Tract Infection, Adult (DC) Add. Discharge Instructions: TYLENOL AND MOTRIN NEEDED FOR PAIN LOTS OF CLEAR LIQUIDS--WATER, BROTH, JELLO, GATORADE--NO COFFEE, POP OR TEA FOLLOW UP WITH DR. SOLOMON IN 2-3 DAYS IF NO BETTER All discharge instructions reviewed with patient and/or family. Voiced understanding. Scripts Metronidazole (Flagyl) 500 Mg Tablet 500 MG PO QID for FOR INFECTION, #40 TAB Prov: WENDIE BROWN DO 08/04/18 Nitrofurantoin Monohyd/M-Cryst (Macrobid 100 mg Capsule) 100 Mg Capsule 100 MG PO BID, #20 CAP Prov: WENDIE BROWN DO 08/04/18 WENDIE BROWN DO Aug 04, 2018 00:59
[2018-08-04 01:07] VITALS: BP 112/89
--- NOTE | 2018-08-04 07:45 | Diagnostic Imaging Report ---
PROCEDURE: CT head without contrast. TECHNIQUE: Multiple contiguous axial images were obtained through the brain without the use of intravenous contrast. INDICATION: Headache. FINDINGS: Noncontrasted images show no evidence of intracranial hemorrhage or mass effect. The ventricles and cortical gyral pattern are normal. No extra-axial fluid collection. Basal cisterns are clear. Mastoid air cells and paranasal sinuses are well-aerated. No evidence of calvarial fractures. IMPRESSION: Negative CT head without contrast. Dictated by: Dictated on workstation # [id number]
--- OUTSIDE RECORDS SUMMARY | 2018-08-06 04:35 | XMS REPORT ---
Author Author CARSON KUMAR [facility] Address Unknown Care Team Providers Care Technical Instructor Course Developer Name Role Phone CARSON KUMAR Unavailable PROBLEMS Type Condition ICD9-CM Code [id number] Code Onset Dates Condition Status SNOMED Code Problem Asthma exacerbation J45.901 Active 582704790 Problem Lumbago 724.2 Active 797136812 Problem Abdominal pain, right lower quadrant 789.03 Active 317013188 ALLERGIES Substance Reaction Event Type Date Status Ultram hallucination Drug Allergy Feb, Active Stadol hallucinations Drug Allergy Feb, Active Penicillin V Potassium Unknown Drug Allergy Feb, Active Codeine hallucinations Drug Allergy Feb, Active Natural Latex Unknown Non Drug Allergy Feb, Active ENCOUNTERS Encounter Location Date Diagnosis [facility] [address] [id number] Feb, Dental examination Z01.20 [facility] [address] [address] Apr, Asthma exacerbation J45.901 [facility] [id number] [place] [phone] Sep, [facility] [id number] [place] [phone] Sep, [facility] [id number] [place] [phone] Jan, [facility] [address] [phone] Aug, [facility] [id number] [place] [phone] Aug, [facility] [address] [phone] Jun, [facility] [address] [facility] [id number] [place], [place] [phone] Jun, IMMUNIZATIONS No Known Immunizations SOCIAL HISTORY Never Assessed REASON FOR VISIT SAMEER--facial swelling/ walk in PLAN OF CARE Activity Details Follow Up prn Reason:#3-te VITAL SIGNS Height 63 in 2018-02-14 Blood pressure systolic 123 mmHg 2018-02-14 Blood pressure diastolic 86 mmHg 2018-02-14 MEDICATIONS Medication Instructions Dosage Frequency Start Date End Date Duration Status Albuterol Sulfate (2.5 MG/3ML) 0.083% Inhalation Three times a day 3 ml 8h Active Clindamycin HCl 150 mg Orally every 6 hrs 2 capsules 6h Feb, 7 days Active PredniSONE 20 mg Orally Once a day 2 qd 3d, 1 qd 4 d 24h Apr, Active RESULTS No Results PROCEDURES Procedure Date Ordered Result Body Site LTD ORAL EVALUATION - PROBLEM FOCUS Feb 14, 2018 INTRAORL-PERIAPICAL 1 FILM [id number] Feb 14, 2018 PANORAMIC FILM SEE ALSO CODE [id number] Feb 14, 2018 INSTRUCTIONS MEDICATIONS ADMINISTERED No Known Medications MEDICAL (GENERAL) HISTORY Type Description Date Medical History Uncomplicated asthma, unspecified asthma severity Surgical History hysterectomy 2009 Surgical History laperotomy Surgical History eye surgery
--- OUTSIDE RECORDS SUMMARY | 2018-08-06 04:35 | XMS REPORT ---
Author Author EVY YARBROUGH Organization [facility] Address [address] [place] [address] Care Team Providers Care Air Gun Operator Name Role Phone EVY YARBROUGH Unavailable PROBLEMS Type Condition ICD9-CM Code [id number] Code Onset Dates Condition Status SNOMED Code Problem Asthma exacerbation J45.901 Active 168153774 Problem Lumbago 724.2 Active 405439239 Problem Abdominal pain, right lower quadrant 789.03 Active 255447563 Assessment Asthma exacerbation J45.901 Apr, Active 683722770 ALLERGIES Substance Reaction Event Type Date Status Ultram hallucination Drug Allergy Apr, Active Stadol hallucinations Drug Allergy Apr, Active Penicillin V Potassium Unknown Drug Allergy Apr, Active Codeine hallucinations Drug Allergy Apr, Active Natural Latex Unknown Non Drug Allergy Apr, Active SOCIAL HISTORY No smoking Hx information available PLAN OF CARE VITAL SIGNS Height 63 in 2016-05-04 Weight 204 lbs 2016-05-04 Heart Rate 72 bpm 2016-05-04 Respiratory Rate 18 2016-05-04 BMI 36.13 kg/m2 2016-05-04 Blood pressure systolic 92 mmHg 2016-05-04 Blood pressure diastolic 64 mmHg 2016-05-04 MEDICATIONS Medication Instructions Dosage Frequency Start Date End Date Duration Status PredniSONE 20 mg Orally Once a day 2 qd 3d, 1 qd 4 d 24h Apr, Active Albuterol Sulfate (2.5 MG/3ML) 0.083% Inhalation Three times a day 3 ml 8h Active RESULTS No Results PROCEDURES Procedure Date Ordered Related Diagnosis Body Site Office Visit, Est Pt., Level 2 May 04, 2016 IMMUNIZATIONS No Known Immunizations
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
== END 2018-08-04 01:06 | disposition home or self-care (01) ==
LOC: EDUNIT# 21:58 → ER 22:01
DX: R51 Headache (principal); N39.0 Urinary tract infection, site not specified; A59.9 Trichomoniasis, unspecified; J45.909 Unspecified asthma, uncomplicated; G43.909 Migraine, unspecified, not intractable, without status migrainosus; Z87.448 Personal history of other diseases of urinary system; Z88.4 Allergy status to anesthetic agent; Z91.041 Radiographic dye allergy status; Z88.5 Allergy status to narcotic agent; Z88.8 Allergy status to other drugs, medicaments and biological substances; Z88.0 Allergy status to penicillin; Z88.6 Allergy status to analgesic agent; Z79.51 Long term (current) use of inhaled steroids; Z90.710 Acquired absence of both cervix and uterus
CPT/HCPCS: 36415; 70450; 80053; 80306; 81000; 83735; 84703; 85025; 87088

== ENCOUNTER → 2018-08-11 | Outpatient (CLI) | payer MEDICAID ==
[~2018-08-11] MED LIST changes: +METR500T PO; +NITR-65 PO
--- NOTE | 2018-08-11 11:15 | Diagnostic Imaging Report ---
INDICATION: Right upper quadrant abdominal pain. TECHNIQUE: Multiple grayscale sonographic images were obtained of the right upper quadrant of the abdomen. CORRELATION STUDY: None FINDINGS: LIVER: There is increased echotexture within the visualized portions of the liver. There is normal, hepatopedal direction of flow within the main portal vein. Liver size 16.8 cm. GALLBLADDER: The gallbladder demonstrates no definitive shadowing gallstones. Borderline gallbladder was at 3 mm. COMMON BILE DUCT: Nondilated at 4 mm. PANCREAS: Visualized portions appearing unremarkable. RIGHT KIDNEY: Measures 11.6 x 4.4 x 5.6 cm. No hydronephrosis. AORTA/IVC: Not well visualized. OTHER: None. IMPRESSION: 1. Probable fatty changes within the liver. 2. Negative for gallstones or bile duct dilatation. Dictated by: Dictated on workstation # [id number]
== END ==
LOC: RAD 08:25
PROVIDERS: ATTEND Family Medicine
DX: R10.11 Right upper quadrant pain (principal)
CPT/HCPCS: 76705

== ENCOUNTER 2018-08-14 21:27 | Emergency (ER) | payer MEDICAID ==
[~2018-08-14] VITALS: Ht 157.5 cm; Wt 83.9 kg
[2018-08-14] MEDS ORDERED: ONDANSETRON 4 MG/2 ML (SDV) Z0FRAN IVP ONE (22:00)
[2018-08-14] MEDS ORDERED: LACTATED RINGERS 1,000 ML IV ONE (22:00)
[2018-08-14] MEDS ORDERED: HYOSCYAMINE 0.125 MG (LEVSIN) TAB SL ONE (22:00)
[2018-08-14 22:06] LABS: BASOPHILS % (AUTO) 0 % (0-10); EOSINOPHILS # (AUTO) 0.2 10^3/uL (0.0-0.3); EOSINOPHILS % (AUTO) 2 % (0-10); HEMATOCRIT 40 % (35-52); LYMPHOCYTES # (AUTO) 2.8 X 10^3 (1.0-4.0); LYMPHOCYTES % (AUTO) 33 % (12-44); MEAN CORPUSCULAR HEMOGLOBIN 33 PG (25-34); MEAN CORPUSCULAR HGB CONC 35 G/DL (32-36); MEAN CORPUSCULAR VOLUME 94 FL (80-99); MEAN PLATELET VOLUME 11.2 FL (7.4-10.4); MONOCYTES # (AUTO) 0.7 X 10^3 (0.0-1.0); MONOCYTES % (AUTO) 8 % (0-12); NEUTROPHILS # (AUTO) 4.9 X 10^3 (1.8-7.8); NEUTROPHILS % (AUTO) 57 % (42-75); PLATELET COUNT 247 10^3/uL (130-400); RED CELL DISTRIBUTION WIDTH 13.1 % (10.0-14.5); WHITE BLOOD COUNT 8.6 10^3/uL (4.3-11.0)
--- NOTE | 2018-08-14 22:11 | ED Abdominal Pain ---
General Chief Complaint: Abdominal/GI Problems Stated Complaint: PAIN IN ABD, Nursing Triage Note: PT REPORTS RUQ PAIN FOR 2 WEEKS BUT TONIGHT SHE FEELS LIKE HER GALLBLADDER IS "POKING OUT OF HER STOMACH AND ABOUT TO EXPLODE". PT REPORTS HAVING AN ULTRASOUND AND DR PADILLA CALLED TODAY AND TOLD HER SHE HAD NO STONES AND LOOKED OK, WAS WORRIED ABOUT FUNCTION. PT DID NOT SCHEDULE A HIDA SCAN YET. Sepsis Screen: No Definite Risk Source of Information: Patient History of Present Illness Date Seen by Provider: Aug 14, 2018 Time Seen by Provider: 21:47 Initial Comments PT ARRIVES VIA POV FROM HOME C/O RUQ PAIN SINCE 1930 TONIGHT--STATES PAIN BEGAN BEFORE SHE ATE C/O SHARP STABBING PAIN NOTHING WORSENS OR IMPROVES PAIN. HAS NOT TAKEN ANYTHING FOR PAIN NO NAUSEA/VOMITING HAS HAD ONGOING DIARRHEA FOR 2 WEEKS, HAS HAD 1 STOOL TODAY. NO BLACK/BLOODY/ TARRY STOOLS NO FEVER NO PROBLEMS URINATING HAD SAME THING A COUPLE OF WEEKS AGO AND SAW DR. DOHERTY AND OUTPATIENT ULTRASOUND WAS DONE. STATES HE CALLED HER TODAY AND GAVE RESULTS OF A FATTY LIVER. NO ADDITIONAL TESTS WERE ORDERED. PT STATES SHE HAS RECENTLY LOST 30 LBS, INTENTIONALLY. PT SEEN HERE 08/03/18 FOR HEADACHE, AND LAB WAS DONE DX WITH UTI AND TRICHOMONAS AND GIVEN RX'S FOR ANTIBIOTICS. STATES SHE IS STILL TAKING THEM PCP: DR. DOHERTY Allergies and Home Medications Allergies Coded Allergies: ketorolac tromethamine (Verified Allergy, Mild, 05/16/12) Iodinated Contrast Media - Oral and (Unverified Allergy, Unknown, 04/24/15 ) butorphanol (Unverified Allergy, Unknown, LOST SIGHT, 04/24/15) codeine (Verified Allergy, Unknown, 09/12/05) folic acid (Verified Allergy, Unknown, 07/11/06) iron (Verified Allergy, Unknown, 07/11/06) latex (Verified Allergy, Unknown, 07/11/06) morphine (Verified Allergy, Unknown, 08/07/16) penicillin G (Verified Allergy, Unknown, 07/11/06) tramadol (Verified Allergy, Unknown, 09/12/05) Home Medications Albuterol 17 Gm Inh, 2 PUFF IH PRN, (Reported) Hyoscyamine Sulfate 0.125 Mg Tab.subl, 1-2 TAB SL Q4H Prescribed by: WENDIE BROWN on 08/14/182341 Metronidazole 500 Mg Tablet, 500 MG PO QID Prescribed by: WENDIE BROWN on 08/04/1858 Metronidazole 500 Mg Tablet, 500 MG PO QID Prescribed by: WENDIE BROWN on 08/14/182341 Nitrofurantoin Monohyd/M-Cryst 100 Mg Capsule, 100 MG PO BID Prescribed by: WENDIE BROWN on 08/04/1858 Ondansetron 4 Mg Tab.rapdis, 4 MG PO Q4H Prescribed by: WENDIE BROWN on 08/14/182341 Pantoprazole Sod 40 Mg Tab, 40 MG PO DAILY Prescribed by: NISH AVENDAÑO on 08/20/141703 Pantoprazole Sodium 40 Mg Tablet.dr, 40 MG PO DAILY Prescribed by: WENDIE BROWN on 08/14/182341 Sulfamethoxazole/Trimethoprim 1 Each Tablet, 1 EACH PO BID Prescribed by: WENDIE BROWN on 08/14/182341 Patient Home Medication List Home Medication List Reviewed: Yes Review of Systems Review of Systems Constitutional: no symptoms reported; No fever; weight loss Respiratory: No Symptoms Reported Cardiovascular: No Symptoms Reported Gastrointestinal: See HPI, Abdominal Pain, Diarrhea; Denies Nausea, Denies Vomiting Genitourinary: No Symptoms Reported Musculoskeletal: no symptoms reported Skin: no symptoms reported Psychiatric/Neurological: No Symptoms Reported Endocrine: No Symptoms Reported Hematologic/Lymphatic: No Symptoms Reported Past Vibtngj-Fzrkgd-Xmmkuc Hx Patient Social History Alcohol Use: Denies Use Number of Drinks Today: HH Alcohol Beverage of Choice: Wine Recreational Drug Use: No Smoking Status: Current Everyday Smoker Type Used: Cigarettes Recent Foreign Travel: No Contact w/Someone Who Travel: No Recent Infectious Disease Expo: No Recent Hopitalizations: No Immunizations Up To Date Tetanus Booster (TDap): Unknown PED Vaccines UTD: Yes Date of Influenza Vaccine: Aug 03, 2018 Seasonal Allergies Seasonal Allergies: Yes Past Medical History Surgeries: Yes (wisdom teeth, laporotomy) Appendectomy, Hysterectomy Respiratory: Yes Asthma Currently Using CPAP: No Currently Using BIPAP: No Cardiac: No Neurological: Yes Headaches /Migraines Reproductive Disorders: Yes (MENORRHAGIA, CERVICAL DYSPLASIA) SWATCHER History: Hysterectomy Sexually Transmitted Disease: Yes (+ TRICHOMONAS ON UA 08/03/18) HIV/AIDS: No Genitourinary: Yes UTI-Chronic Gastrointestinal: No Musculoskeletal: No Endocrine: No HEENT: Yes (POOR DENTITION) Cancer: No Psychosocial: No Integumentary: No Blood Disorders: No Family Medical History Asthma SON SON FH: cancer AUNT UNCLE No Pertinent Family Hx Physical Exam Vital Signs Vital Signs - First Documented 08/14/18 21:38 Temp 98.9 Pulse 106 Resp 20 B/P (MAP) 107/84 (92) Pulse Ox 99 Capillary Refill : Less Than 3 Seconds Height/Weight/BMI Height: 5'2.00" Weight: 185lbs. 7.0oz. 83.208192cm; 37.3 BMI Method:Stated General Appearance: no apparent distress, obese, other (DRAMATIC, HOLDING RUQ) HEENT: PERRL/EOMI, other (EXTENSIVE DENTAL DECAY, ESPECIALLY TOP FRONT TEETH ALL DECAYED DOWN TO GUMS) Respiratory: normal breath sounds, no respiratory distress, no accessory muscle use Cardiovascular: regular rate, rhythm, no murmur Gastrointestinal: normal bowel sounds, soft, guarding, tenderness Extremities: normal inspection, normal capillary refill Back: no CVA tenderness Neurologic/Psychiatric: principal product manager II-XII nml as tested, no motor/sensory deficits, alert, oriented x 3 Skin: normal color, warm/dry; No rash Progress/Results/Core Measures Results/Orders Lab Results Laboratory Tests Test 08/14/18 21:55 08/14/18 22:14 Range/Units White Blood Count 8.6 4.3-11.0 10^3/uL Red Blood Count 4.28 L 4.35-5.85 10^6/uL Hemoglobin 14.0 11.5-16.0 G/DL Hematocrit 40 35-52 % Mean Corpuscular Volume 94 80-99 FL Mean Corpuscular Hemoglobin 33 25-34 PG Mean Corpuscular Hemoglobin Concent 35 32-36 G/DL Red Cell Distribution Width 13.1 10.0-14.5 % Platelet Count 247 130-400 10^3/uL Mean Platelet Volume 11.2 H 7.4-10.4 FL Neutrophils (%) (Auto) 57 42-75 % Lymphocytes (%) (Auto) 33 12-44 % Monocytes (%) (Auto) 8 0-12 % Eosinophils (%) (Auto) 2 0-10 % Basophils (%) (Auto) 0 0-10 % Neutrophils # (Auto) 4.9 1.8-7.8 X 10^3 Lymphocytes # (Auto) 2.8 1.0-4.0 X 10^3 Monocytes # (Auto) 0.7 0.0-1.0 X 10^3 Eosinophils # (Auto) 0.2 0.0-0.3 10^3/uL Basophils # (Auto) 0.0 0.0-0.1 10^3/uL Sodium Level 141 135-145 MMOL/L Potassium Level 3.5 L 3.6-5.0 MMOL/L Chloride Level 108 H 98-107 MMOL/L Carbon Dioxide Level 22 21-32 MMOL/L Anion Gap 11 5-14 MMOL/L Blood Urea Nitrogen 8 7-18 MG/DL Creatinine 0.85 0.60-1.30 MG/DL Estimat Glomerular Filtration Rate > 60 BUN/Creatinine Ratio 9 Glucose Level 97 70-105 MG/DL Calcium Level 9.4 8.5-10.1 MG/DL Corrected Calcium 9.2 8.5-10.1 MG/DL Total Bilirubin 0.5 0.1-1.0 MG/DL Aspartate Amino Transf (AST/SGOT) 49 H 5-34 U/L Alanine Aminotransferase (ALT/SGPT) 44 0-55 U/L Alkaline Phosphatase 51 40-136 U/L Total Protein 6.7 6.4-8.2 GM/DL Albumin 4.3 3.2-4.5 GM/DL Amylase Level 54 25-125 U/L Lipase 19 8-78 U/L Serum Alcohol < 10 <10 MG/DL Urine Color YELLOW Urine Clarity CLEAR Urine pH 6.5 5-9 Urine Specific Marshall 1.015 L 1.016-1.022 Urine Protein 1+ H NEGATIVE Urine Glucose (UA) NEGATIVE NEGATIVE Urine Ketones 1+ H NEGATIVE Urine Nitrite POSITIVE H NEGATIVE Urine Bilirubin NEGATIVE NEGATIVE Urine Urobilinogen 1 NORMAL MG/DL Urine Leukocyte Esterase 2+ H NEGATIVE Urine RBC (Auto) 2+ H NEGATIVE Urine RBC 0-2 /HPF Urine WBC 2-5 /HPF Urine Squamous Epithelial Cells 10-25 H /HPF Urine Crystals NONE /LPF Urine Bacteria MODERATE H /HPF Urine Casts NONE /LPF Urine Mucus LARGE H /LPF Urine Culture Indicated YES Urine Opiates Screen NEGATIVE NEGATIVE Urine Oxycodone Screen NEGATIVE NEGATIVE Urine Methadone Screen NEGATIVE NEGATIVE Urine Propoxyphene Screen NEGATIVE NEGATIVE Urine Barbiturates Screen NEGATIVE NEGATIVE Ur Tricyclic Antidepressants Screen NEGATIVE NEGATIVE Urine Phencyclidine Screen NEGATIVE NEGATIVE Urine Amphetamines Screen NEGATIVE NEGATIVE Urine Methamphetamines Screen NEGATIVE NEGATIVE Urine Benzodiazepines Screen NEGATIVE NEGATIVE Urine Cocaine Screen NEGATIVE NEGATIVE Urine Cannabinoids Screen NEGATIVE NEGATIVE My Orders Orders - KEVINRYANA Chas DO Saline Lock/Iv-Start (08/14/18 21:46) Amylase (08/14/18 21:46) Cbc With Automated Diff (08/14/18 21:46) Comprehensive Metabolic Panel (08/14/18 21:46) Lipase (08/14/18 21:46) Ua Culture If Indicated (08/14/18 21:46) Alcohol (08/14/18 22:00) Drug Screen Stat (Urine) (08/14/18 22:00) Ct Abdomen/Pelvis Wo (08/14/18 22:00) Saline Lock/Iv-Start (08/14/18 22:00) Lactated Ringers (Lr 1000 Ml Iv Solution (08/14/18 22:00) Ondansetron Injection (Zofran Injectio (08/14/18 22:00) Hyoscyamine Sl Tablet (Levsin Sl Tablet) (08/14/18 22:00) Acute Abd Series (08/14/18 22:03) Urine Culture (08/14/18 22:14) Rx-Hyoscyamine Tab (Rx-Levsin Sl) (08/14/18 23:43) Rx-Ondansetron Po (Rx-Zofran Po) (08/14/18 23:43) Rx-Hyoscyamine Tab (Rx-Levsin Sl) (08/14/18 23:48) Rx-Ondansetron Po (Rx-Zofran Po) (08/14/18 23:47) Medications Given in ED Current Medications Medications Dose Ordered Sig/Berto Route Start Time Stop Time Status Last Admin Dose Admin Hyoscyamine Sulfate 0.25 mg ONCE ONCE SL 08/14/18 22:00 08/14/18 22:02 DC 08/14/18 22:16 0.25 MG Lactated Ringer's 1,000 ml @ 0 mls/hr Q0M ONCE IV 08/14/18 22:00 08/14/18 22:02 DC 08/14/18 22:15 1,000 MLS/HR Ondansetron HCl 8 mg ONCE ONCE IVP 08/14/18 22:00 08/14/18 22:02 DC 08/14/18 22:16 8 MG Vital Signs/I&O 08/14/18 08/14/18 21:38 23:52 Temp 98.9 98.9 Pulse 106 100 Resp 20 18 B/P (MAP) 107/84 (92) 105/80 (88) Pulse Ox 99 99 08/15/18 00:00 Intake Total 50 ml Balance 50 ml Blood Pressure Mean: 92 Progress Progress Note : Progress Note PAIN ALMOST COMPLETELY RESOLVED AT DISMISSAL ADVISED OF NEED FOR FOLLOW UP WITH DR. DOHERTY AND POSSIBLE NEED FOR ADDITIONAL OUTPATIENT TESTS SUCH HIDA SCAN Diagnostic Imaging Comments CT ABDOMEN/PELVIS--NO ACUTE PROCESS, PER [facility] VIA FAX @ 1079 Reviewed: Reviewed by Me Departure Impression Primary Impression: RUQ abdominal pain Additional Impression: Urinary tract infection Disposition: HOME, SELF-CARE Condition: Improved Departure-Patient Inst. Referrals: HEVER DOHERTY MD (PCP/Family) Primary Care Physician Patient Instructions: Acute Abdomen (Belly Pain), Adult (DC), Urinary Tract Infection, Adult (DC) Add. Discharge Instructions: HOME, REST CLEAR LIQUIDS--WATER, BROTH, JELLO, GATORADE WHEN YOUR PAIN IS GONE, ADD BRATS DIET TO CLEAR LIQUIDS--BANANAS, RICE, APPLESAUCE, TOAST, SALTINES FOLLOW UP WITH DR. DOHERTY THIS WEEK FOR FURTHER CARE All discharge instructions reviewed with patient and/or family. Voiced understanding. Scripts Pantoprazole Sodium (Protonix) 40 Mg Tablet. 40 MG PO DAILY, #15 TAB Prov: WENDIE BROWN DO 08/14/18 Ondansetron (Ondansetron Odt) 4 Mg Tab.rapdis 4 MG PO Q4H for Nausea/Vomiting, #10 TAB Prov: WENDIE BROWN DO 08/14/18 Hyoscyamine Sulfate (Levsin-Sl) 0.125 Mg Tab.subl 1-2 TAB SL Q4H for Abdominal Pain, #15 TAB Prov: WENDIE BROWN DO 08/14/18 Sulfamethoxazole/Trimethoprim (Bactrim Ds Tablet) 1 Each Tablet 1 EACH PO BID, #20 TAB Prov: WENDIE BROWN DO 08/14/18 Metronidazole (Flagyl) 500 Mg Tablet 500 MG PO QID for FOR INFECTION, #40 TAB Prov: WENDIE BROWN DO 08/14/18 WENDIE BROWN DO Aug 14, 2018 22:11
[2018-08-14 22:24] LABS: ALANINE AMINOTRANSFERASE 44 U/L (0-55); ALBUMIN 4.3 GM/DL (3.2-4.5); ALKALINE PHOSPHATASE 51 U/L (40-136); AMYLASE 54 U/L (25-125); BILIRUBIN,TOTAL 0.5 MG/DL (0.1-1.0); BUN/CREATININE RATIO 9; CALCIUM 9.4 MG/DL (8.5-10.1); CARBON DIOXIDE 22 MMOL/L (21-32); CHLORIDE 108 MMOL/L (98-107); CREATININE SERUM 0.85 MG/DL (0.60-1.30); GFR ESTIMATED > 60; GLUCOSE 97 MG/DL (70-105); LIPASE 19 U/L (8-78); POTASSIUM 3.5 MMOL/L (3.6-5.0); SODIUM 141 MMOL/L (135-145); TOTAL PROTEIN 6.7 GM/DL (6.4-8.2)
[2018-08-14 22:41] LABS: AMPHETAMINE SCREEN, URINE NEGATIVE (NEGATIVE); BARBITURATE SCREEN URINE NEGATIVE (NEGATIVE); BENZODIAZEPINES SCREEN URINE NEGATIVE (NEGATIVE); CANNABINOID SCREEN, URINE NEGATIVE (NEGATIVE); COCAINE SCREEN URINE NEGATIVE (NEGATIVE); METHADONE STAT NEGATIVE (NEGATIVE); METHAMPHETAMINE SCREEN URINE S NEGATIVE (NEGATIVE); OPIATE SCREEN URINE NEGATIVE (NEGATIVE); OXYCODONE STAT NEGATIVE (NEGATIVE); PROPOXYPHENE STAT NEGATIVE (NEGATIVE); TRICYCLIC ANTIDEPRESSANTS SCRE NEGATIVE (NEGATIVE)
[2018-08-14 22:46] LABS: BILIRUBIN,URINE NEGATIVE (NEGATIVE); CLARITY,URINE CLEAR; COLOR,URINE YELLOW; GLUCOSE, URINE (UA) NEGATIVE (NEGATIVE); KETONES,URINE 1+ (NEGATIVE); LEUKOCYTE ESTERASE ,URINE 2+ (NEGATIVE); NITRITE,URINE POSITIVE (NEGATIVE); PH,URINE 6.5 (5-9); PROTEIN,URINE 1+ (NEGATIVE); UROBILINOGEN,URINE 1 MG/DL (NORMAL)
[2018-08-14 22:47] LABS: BACTERIA,URINE MODERATE /HPF; RBC,URINE 0-2 /HPF
[2018-08-14] MEDS ORDERED: ONDA4TAB11 PO (23:42)
[2018-08-14] MEDS ORDERED: PANT40TA2 PO (23:42)
[2018-08-14] MEDS ORDERED: METR500T PO (23:42)
[2018-08-14] MEDS ORDERED: HYOS0.1283 SL (23:42)
[2018-08-14] MEDS ORDERED: SULF1TAB35 PO (23:42)
[2018-08-14] MEDS ORDERED: RX-HYOSCYAMINE 0.125 MG SL (LEVSIN) PPK#6 SL STA (23:43)
[2018-08-14] MEDS ORDERED: RX-ONDANSETRON 4 MG ODT (ZOFRAN) PPK #4 PO STA (23:43)
[2018-08-14] MEDS ORDERED: RX-ONDANSETRON 4 MG ODT (ZOFRAN) PPK #4 ONE (23:47)
[2018-08-14] MEDS ORDERED: RX-HYOSCYAMINE 0.125 MG SL (LEVSIN) PPK#6 ONE (23:48)
[2018-08-14 23:52] VITALS: BP 105/80
--- NOTE | 2018-08-15 07:18 | Diagnostic Imaging Report ---
Indication: Abdominal pain. Comparison: CT abdomen and pelvis performed concurrently. Findings: Lungs are clear. No pleural effusion or pneumothorax. Normal cardiomediastinal silhouette and pulmonary vasculature. Nonobstructive bowel gas pattern. No free intraperitoneal air. Surgical changes in the pelvis are noted. Impression: No acute process in the chest or abdomen by radiography. Dictated by: Dictated on workstation # [id number]
--- NOTE | 2018-08-15 07:19 | Diagnostic Imaging Report ---
PROCEDURE: CT abdomen and pelvis without contrast. TECHNIQUE: Multiple contiguous axial images were obtained through the abdomen and pelvis without the use of intravenous contrast. INDICATION: Abdominal pain COMPARISON: 01/28/2012 FINDINGS: Evaluation of the abdominal viscera is mildly limited without contrast. Lower chest: The lung bases are clear. No pericardial or pleural effusion. Peritoneum: No free intraperitoneal air or fluid. Liver and biliary system: Diffuse hypoattenuation of the liver is indicative of hepatic steatosis. A small focus of more intense focal fatty infiltration is present along the falciform ligament. No concerning focal hepatic lesion. Gallbladder is decompressed. No biliary duct dilatation. Spleen and Pancreas: Spleen is normal. Unenhanced pancreas is grossly normal. Adrenals: Stable 1.3 x 1.3 cm low-attenuation left adrenal nodule which can be considered benign in etiology given long-term stability and low-attenuation. tract: No renal or ureteral calculi. No obstructive uropathy. Hysterectomy. No adnexal mass. GI tract: Stomach is partially filled with fluid and food debris and there is no wall thickening. No bowel obstruction. No pericolonic inflammatory changes. Probable appendectomy. Vasculature and Lymph nodes: Normal caliber aorta. No abdominal or pelvic lymphadenopathy. Musculoskeletal: No concerning osseous lesion. IMPRESSION: 1. No acute obstructive or inflammatory process in the abdomen or pelvis. 2. No urinary tract calculi. 3. Diffuse hepatic steatosis. 4. Left adrenal nodule is benign adenoma and requires no dedicated followup imaging. 5. Findings are in agreement with the preliminary report. Dictated by: Dictated on workstation # [id number]
== END 2018-08-14 23:54 | disposition home or self-care (01) ==
LOC: EDUNIT# 21:27 → ER 21:28
DX: N39.0 Urinary tract infection, site not specified (principal); J45.909 Unspecified asthma, uncomplicated; G43.909 Migraine, unspecified, not intractable, without status migrainosus; F17.210 Nicotine dependence, cigarettes, uncomplicated; Z87.440 Personal history of urinary (tract) infections; Z86.19 Personal history of other infectious and parasitic diseases; Z90.49 Acquired absence of other specified parts of digestive tract; Z90.710 Acquired absence of both cervix and uterus; Z88.4 Allergy status to anesthetic agent; Z88.5 Allergy status to narcotic agent; Z91.040 Latex allergy status; Z79.51 Long term (current) use of inhaled steroids; Z88.0 Allergy status to penicillin; Z88.8 Allergy status to other drugs, medicaments and biological substances; Z88.6 Allergy status to analgesic agent; Z91.041 Radiographic dye allergy status
CPT/HCPCS: 36415; 74022; 74176; 80053; 80306; 80320; 81000; 82150; 83690; 85025; 87088

== ENCOUNTER → 2018-08-24 | Outpatient (CLI) | payer MEDICAID ==
[~2018-08-24] MED LIST changes: +CATHETER FLUSH 10 ML SYR IV PRN; +HYOS0.1283 SL; +ONDA4TAB11 PO; +PANT40TA2 PO; +SULF1TAB35 PO
--- NOTE | 2018-08-24 14:41 | Diagnostic Imaging Report ---
INDICATION: Right upper quadrant pain. TECHNIQUE: Patient was administered 5.4 mCi technetium 99m Choletec intravenously and imaging over the abdomen was performed. At 60 minutes, patient ingested one can of Ensure and gallbladder ejection fraction was calculated. FINDINGS: There is homogeneous uptake of activity by the liver. Prompt excretion of activity is seen into the common duct. There is passage of activity into the gallbladder as well as the small bowel. Gallbladder ejection fraction is low at 24%. IMPRESSION: 1. No evidence of cystic duct or common bile duct obstruction. 2. Low gallbladder ejection fraction of 24%. Normal values are 33% or greater. Dictated by: Dictated on workstation # [id number]
== END ==
LOC: CARD 11:31
PROVIDERS: ATTEND Family Medicine
DX: R10.11 Right upper quadrant pain (principal)
CPT/HCPCS: 78227

== ENCOUNTER 2018-09-04 06:22 | Outpatient (CLI) | payer MEDICAID ==
[~2018-09-04] VITALS: Ht 160 cm; Wt 83.9 kg
[~2018-09-04 06:22] MED LIST changes: -CATHETER FLUSH 10 ML SYR IV PRN
[2018-09-06] MEDS ORDERED: RT-ALBUINH INH (10:11)
== END 2018-09-04 10:35 | disposition home or self-care (01) ==
LOC: PREOP 06:22
PROVIDERS: ATTEND Surgery
DX: Z01.818 Encounter for other preprocedural examination (principal)

== ENCOUNTER 2018-09-06 08:58 | Day surgery (SDC) | payer MEDICAID ==
[~2018-09-06] VITALS: Ht 160 cm; Wt 83.9 kg
[2018-09-06 09:00] VITALS: BP 91/70
[2018-09-06] MEDS ORDERED: CLINDAMYCIN 600 MG/50 ML IVPB 50 ML IV ONE (09:15)
[2018-09-06] MEDS: LACTATED RINGERS 1,000 ML IV PRN ×2 (09:45→12:35)
--- NOTE | 2018-09-06 09:56 | Progress Note-Pre Operative ---
Pre-Operative Progress Note H&P Reviewed The H&P was reviewed, patient examined and no changes noted. Time Seen by Provider: 09:53 Date H&P Reviewed: Sep 06, 2018 Time H&P Reviewed: 09:54 Pre-Operative Diagnosis: Biliary Dyskinesia SHI ENRIQUEZ DO Sep 06, 2018 09:56
[2018-09-06] MEDS ORDERED: RT-ALBUINH INH ×2 (10:11)
[2018-09-06] MEDS ORDERED: FAMOTIDINE 20MG/2ML IV (PEPCID) IVP ONE (10:30)
[2018-09-06] MEDS ORDERED: fentaNYL INJECTION 100 MCG/2 ML AMP ONE ×2 (10:38→11:41)
[2018-09-06] MEDS ORDERED: MIDAZOLAM 2 MG/2 ML (VERSED) VIAL ONE (10:38)
[2018-09-06] MEDS ORDERED: ONDANSETRON 4 MG/2 ML (SDV) Z0FRAN ONE (10:38)
[2018-09-06] MEDS ORDERED: ROCURONIUM 10 MG/ML 5 ML SYRINGE IV ONE (10:38)
[2018-09-06] MEDS ORDERED: proPOfol 200 MG/20 ML (DIPRIVAN) VIAL IV ONE (10:38)
[2018-09-06] MEDS ORDERED: SEVOFLURANE (ULTANE) 15 ML INHAL SOLN ONE ×3 (10:38→12:11)
[2018-09-06] MEDS ORDERED: DEXAMETHASONE 10 MG/ML (DECADRON) 1 ML VIAL ONE (10:38)
[2018-09-06] MEDS ORDERED: LIDOCAINE PF 2% 5 ML (XYLOCAINE) VIAL ONE (10:38)
[2018-09-06] MEDS ORDERED: BUP/EPI 0.5% 1:200,000 (SENSORCAINE) 30 ML VIAL ONE (10:47)
[2018-09-06] MEDS ORDERED: LIDOCAINE 1% INJ 20 ML 20 ML VIAL ONE (10:47)
[2018-09-06] MEDS ORDERED: SUCCINYLCHOLINE INJ 100 MG/5 ML SYR ONE (11:48)
--- NOTE | 2018-09-06 12:01 | Progress Note-Post Operative ---
Post-Operative Progess Note Surgeon (s)/Utility Teller (s) Surgeon SHI ENRIQUEZ DO Utility Teller: Tanesha Pre-Operative Diagnosis Biliary Dyskinesia Post-Operative Diagnosis Same Procedure & Operative Findings Date of Procedure 09/06/18 Procedure Performed/Findings Lap christo Anesthesia Type GET Estimated Blood Loss Estimated blood loss (mL): scant Specimens/Packing Specimens Removed GB and contents SHI ENRIQUEZ DO Sep 06, 2018 12:00
--- NOTE | 2018-09-06 12:02 | Discharge Inst-Surgical ---
Discharge Inst-Surgical Depart Medication/Instructions New, Converted or Re-Newed RX: Other (No Rx written for, pt to take motrin and tylenol) Patient Instructions Follow up Appt: Make appointment for 1 week. [phone] Instructions: No lifting greater than 20 pounds. No strenuous activity. May shower in 24 hours, no tub bath or soaking. Use incentive spirometer at home as directed. No Smoking Skin/Wound Care: May remove bandages in am. You need to leave the Dermabond on incision it will fall off on it's own. Symptoms to Report: Appetite Changes, Extremity Discoloration, Numbness/Tingling, Swelling Increased , Bleeding Excessive, Eyesight Changes, Pain Increased, Urine Color Change, Constipation(Persistent), Fever over 101 degree F, Pain/Pressure in chest, Urinating Difficulty, Cough Up/Vomit Blood, Heart Beat Irreg/Pounding, Pain/ Pressure in jaw, Cramps in feet or legs, Lightheadedness, Pain/Pressure in shoulder, Diarrhea(Persistent), Memory Changes Suddenly, Questions/Concerns, Weight gain consecutive days, Dizziness/Fainting, Nausea/Vomiting, Shortness of Breath, Weight gain over 2 pounds If questions or concerns contact your physician Or seek help at emergency department. Activity Activity as Tolerated: Yes Activity Instructions: Avoid Stress to Incision Driving Instructions: No Driving/Refer to Diet Discharge Diet: Avoid Fatty Foods, Low Fat/Low Cholesterol Diet After 24 Hours: Clear Liquid if Nauseous If Any Problems/Questions/Issu: Contact Your Physician, Go to Emergency Room Skin/Wound Care Infection Signs and Symptoms: Increased Redness, Foul Odor of Wound, Increased Drainage, Skin Itchy or Has a Rash, Increased Swelling, Temperature Above 101 F Wound Care Comment: Heating pad to shoulder or neck tonight for pain Bathing Instructions: Shower Operative Area Clean and Dry: Keep Incision Clean/Dry Stitches/Carpenter/Dermabond Dis: Dermabond Ice Pack: Ice On and Off Site (as needed for pain at incision sites) SHI ENRIQUEZ DO Sep 06, 2018 12:02
[2018-09-06] MEDS ORDERED: GLYCOPYRROLATE 0.2 MG/ML (ROBINUL) 2 ML VIAL ONE (12:13)
[2018-09-06] MEDS ORDERED: NEOSTIGMINE 1 MG/ML 5 ML SYRINGE ONE (12:13)
[2018-09-06] MEDS ORDERED: fentaNYL INJECTION 100 MCG/2 ML AMP IVP ONE (12:30)
[2018-09-06] MEDS ORDERED: ONDANSETRON 4 MG/2 ML (SDV) Z0FRAN IVP PRN (12:30)
[2018-09-06] MEDS ORDERED: MEPERIDINE (DEMEROL) INJ 50 MG/ML IVP ONE (12:30)
[2018-09-06] MEDS ORDERED: PROMETHAZINE INJ 25 MG/ML (PHENERGAN) AMP IVP ONE (12:30)
[2018-09-06 13:20] VITALS: BP 121/84
--- NOTE | 2018-09-06 13:20 | NUR ---
TO AMB SURG FROM PAR PER CART WITH X2 PAR RN'S. PT FLAILING AROUND IN BED, CURSING AND UNCOOPERATIVE WITH REQUESTS TO LIE STILL IN BED FOR HER SAFETY. LARGE BANDAIDS D/I TO X4 LAP ABD SURGICAL SITES. PO FLUIDS TO BEDSIDE. REFUSES TO LEAVE ICE PACK ON ABD, STATES "THAT DOESN'T F'ING HELP ANYTHING!" EXPLANATIONS GIVEN TO NO APPARENT AVAIL, REMAINS UNCOOPERATIVE AND CONTINUES TO CURSE LOUDLY ABOUT PAIN AND BLOOD PRESSURE CUFF BEING TOO TIGHT. STAFF AT BEDSIDE
[2018-09-06] MEDS ORDERED: IBUPROFEN 600 MG (MOTRIN) TAB PO ONE (13:25)
[2018-09-06] MEDS ORDERED: IBUPROFEN TABLET 200 MG TAB PO ONE (13:31)
--- NOTE | 2018-09-06 13:40 | NUR ---
MOTRIN 600 MG GIVEN PO.
--- NOTE | 2018-09-06 13:47 | Anesthesia-General Post-Op ---
General Patient Condition Mental Status/LOC: Same as Preop Cardiovascular: Satisfactory Nausea/Vomiting: Absent Respiratory: Satisfactory Pain: Controlled Complications: Absent Post Op Complications Complications None Follow Up Care/Instructions Patient Instructions None needed. Anesthesia/Patient Condition Patient Condition Patient is doing well, no complaints, stable vital signs, no apparent adverse anesthesia problems. No complications reported per nursing. JANNA FLORES CRNA Sep 06, 2018 13:47
--- NOTE | 2018-09-06 13:55 | NUR ---
FINALLY LYING STILL IN BED ON HER BACK, EYES CLOSED, RESP EVEN, UNLABORED. PT BEING MONITORED AT ALL TIMES FOR SAFETY. NO FAMILY OR FRIENDS WITH PT, PT STATED ON ADMIT THAT A FRIEND WILL PICK HER UP WHEN SHE IS DISMISSED.
[2018-09-06 14:15] VITALS: BP 111/70
[2018-09-06] MEDS ORDERED: ACETAMINOPHEN 325 MG TABLET ONE (14:42)
[2018-09-06] MEDS ORDERED: ACETAMINOPHEN 325 MG TABLET PO ONE (14:45)
[2018-09-06 15:00] VITALS: BP 95/66
--- NOTE | 2018-09-06 15:00 | NUR ---
AWAKE, ALERT, MOVING EASILY IN BED. PAIN RATE 4-5. TYLENOL 650 MG GIVEN PO AT 1445 PER PT REQUEST. PT HAD DISCUSSED POST OP PAIN CONTROL WITH DR ENRIQUEZ PRIOR TO SURGERY AND HAD STATED SHE IS UNABLE TO TAKE OPIOIDS DUE TO ALLERGIES. PT HAD VERY ADAMANTLY STATED SHE WOULD TAKE ONLY TYLENOL AND MOTRIN FOR POST OP PAIN, AND DR ENRIQUEZ AGREED WITH HER PLAN. REQUESTING DISMISSAL DIPAK.
[2018-09-06 15:20] VITALS: BP 95/66
--- NOTE | 2018-09-06 15:20 | NUR ---
NO CHANGE IN SURGICAL SITE ASSESSMENT. DISCHARGE INSTRUCTIONS DISCUSSED WITH PT. PT STATES SHE WILL NOT USE ICE PACK PROVIDED. STATES "IT DOESN'T DO ANY GOOD AND IT'S BULL----!" INSTRUCTED ON INCENTIVE SPIROMETRY AND UNIT PROVIDED, HOWEVER, PT STATES SHE WILL NOT USE INCENTIVE SPIROMETRY INSTRUCTED, DESPITE CONVERSATION WITH PT ABOUT PO RISK OF PNEUMONIA EXACERBATED BY HER HX OF ASTHMA AND SMOKING. DISMISSED PER WC WITH STAFF X1 TO FRIEND'S CAR.
--- NOTE | 2018-09-06 18:43 | OPERATIVE REPORT ---
DATE OF SERVICE: 09/06/2018 PREOPERATIVE DIAGNOSIS: Biliary dyskinesia. POSTOPERATIVE DIAGNOSIS: Biliary dyskinesia. PROCEDURE: Laparoscopic cholecystectomy. SURGEON: Aquilino Bruno DO CRYPTOLOGIC LINGUIST: Radames Almendarez DO ANESTHESIA: General endotracheal tube. SPECIMEN: Gallbladder and contents. BLOOD LOSS: Scant. FLUIDS: Per anesthesia. POSTOPERATIVE CONDITION: Stable. INDICATION FOR PROCEDURE: The patient is a 37-year-old female, who has been having right upper quadrant pain and sometimes associated with food, had a HIDA scan, which showed a low ejection fraction, which is indicative of biliary dyskinesia. FINDINGS: The patient had some adhesions to the gallbladder. This usually indicates previous gallbladder attacks, but no other obvious pathology. PROCEDURE NOTE: After informed consent was obtained, the patient was brought to the operating room, placed on the table in supine position. She was sterilely prepped and draped in normal fashion. Local lidocaine was used to infiltrate the skin above the umbilicus and made incision with #11 blade, carried down through skin into subcutaneous tissue, then deepened down to subcutaneous tissue with Bovie electrocautery down to the fascia. Fascia was then incised with Bovie electrocautery. Bluntly entered the abdomen, swept a finger around, placed 0 Vicryl [id number] suture and placed 11 mm trocar port under direct visualization. Created pneumoperitoneum and then placed 3 more ports in normal fashion using local lidocaine, 11 blade for stab incision and Versed system, all done under direct visualization, one in the subxiphoid and 2 in the right upper quadrant. The patient then placed slightly in reverse Trendelenburg and rotated left, able to grasp the gallbladder at the fundus, noted some adhesions, took a picture of this and I then carefully took these down with Bovie electrocautery, then able to grasp down the Jignesh's pouch and pulled in inferolateral direction, started dissecting out the cystic duct and cystic artery. I was able to get on the cystic duct and the cystic artery and placed 1 clip distally and 2 proximally on the cystic duct and on the cystic artery. Cut the cystic duct and the cystic artery and then started taking the gallbladder to the bed of liver with L-hook cautery, which was completely removed, placed a bag in the abdomen, placed the gallbladder in the bag and then removed this through a supraumbilical incision. Placed the port back in the abdomen, copiously irrigated the bed of liver with normal saline. There was no bleeding. Took a picture and then placed the patient supine and suctioned out all the fluid as well as suctioned out the pneumoperitoneum and removed the ports under direct visualization. At this point, then closed supraumbilical incision, closing the fascia with 0 Vicryl suture previously placed. Copiously irrigated all incisions with normal saline, closing the 3 small 5 mm incisions with a single interrupted 4-0 undyed Monocryl subcuticular stitch. Closed supraumbilical incision with 3 interrupted 4-0 undyed Monocryl subcuticular stitches. Area was cleaned and dried and Dermabond placed as well as Band-Aids. The patient was then transferred to recovery room in stable condition. Sponge, instrument and needle counts were correct at the end of the case. Dr. Almendarez assisted in this case helping to make incisions, closed the incisions, identify anatomy and hold the anatomy out of the way. Job ID: [id number] DocumentID: [id number] Dictated Date: 09/06/2018 14:40:18 Armhole Presser Date: 09/06/2018 18:41:59 Dictated By: AQUILINO BRUNO DO
[2018-09-06] MEDS ORDERED: TAPE50TA2 PO (20:48)
== END 2018-09-06 15:20 | disposition home or self-care (01) ==
LOC: SDC 08:58
PROVIDERS: ATTEND Surgery
DX: K81.1 Chronic cholecystitis (principal); K82.8 Other specified diseases of gallbladder; F17.210 Nicotine dependence, cigarettes, uncomplicated; J45.909 Unspecified asthma, uncomplicated; K21.9 Gastro-esophageal reflux disease without esophagitis; Z88.0 Allergy status to penicillin
CPT/HCPCS: 87081

== ENCOUNTER 2018-09-06 19:55 | Emergency (ER) | payer MEDICAID ==
[~2018-09-06] VITALS: Ht 160 cm; Wt 83.9 kg
[~2018-09-06 19:55] MED LIST changes: +RT-ALBUINH INH
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
--- NOTE | 2018-09-06 20:08 | ED Abdominal Pain ---
General Stated Complaint: R SHOULDER PAIN Source of Information: Patient, EMS Exam Limitations: No Limitations History of Present Illness Date Seen by Provider: Sep 06, 2018 Time Seen by Provider: 20:02 Initial Comments To ER per EMS with reports of right upper quadrant abdominal pain, right shoulder pain. She had a laparoscopic cholecystectomy today for biliary dyskinesia. She is allegedly allergic to a multitude of oral pain medications so she's been just taking Tylenol and Motrin without relief. EMS gave 50 g of fentanyl. Timing/Duration: 1-2 Days Severity/Quality: Moderate Radiation: No Radiation Activities at Onset: None Associated Symptoms: Nausea/Vomiting (nausea but no vomiting) Allergies and Home Medications Allergies Coded Allergies: ketorolac tromethamine (Verified Allergy, Mild, 05/16/12) Iodinated Contrast- Oral and IV Dye (Unverified Allergy, Unknown, 04/24/15 ) butorphanol (Unverified Allergy, Unknown, LOST SIGHT, 04/24/15) codeine (Verified Allergy, Unknown, 09/12/05) folic acid (Verified Allergy, Unknown, 07/11/06) hydrocodone (Verified Allergy, Unknown, 09/06/18) iron (Verified Allergy, Unknown, 07/11/06) latex (Verified Allergy, Unknown, 07/11/06) morphine (Verified Allergy, Unknown, 08/07/16) oxycodone (Verified Allergy, Unknown, 09/06/18) penicillin G (Verified Allergy, Unknown, 07/11/06) tramadol (Verified Allergy, Unknown, 09/12/05) Home Medications Albuterol Sulfate 1 Puff Puff, 2 PUFF INH Q4H, (Reported) 1 PUFF = 90 MCG Tapentadol HCl 50 Mg Tablet, 50 MG PO Q6H PRN for PAIN-SEVERE Prescribed by: NISH AVENDAÑO on 09/06/182047 Patient Home Medication List Home Medication List Reviewed: Yes Review of Systems Review of Systems Constitutional: see HPI EENTM: No Symptoms Reported Respiratory: No Symptoms Reported Cardiovascular: No Symptoms Reported Gastrointestinal: See HPI, Abdominal Pain, Nausea; Denies Vomiting Genitourinary: No Symptoms Reported Musculoskeletal: no symptoms reported Skin: no symptoms reported Psychiatric/Neurological: No Symptoms Reported Endocrine: No Symptoms Reported Hematologic/Lymphatic: No Symptoms Reported Past Nzvksqd-Sjtmdu-Thtgtl Hx Patient Social History Alcohol Beverage of Choice: Wine Type Used: Cigarettes Recent Foreign Travel: No Contact w/Someone Who Travel: No Recent Hopitalizations: No Immunizations Up To Date Tetanus Booster (TDap): Unknown PED Vaccines UTD: Yes Date of Influenza Vaccine: Aug 03, 2018 Seasonal Allergies Seasonal Allergies: Yes Past Medical History Surgeries: Yes (wisdom teeth, laporotomy) Appendectomy, Eye Surgery, Hysterectomy, Oophorectomy Respiratory: Yes Asthma Currently Using CPAP: No Currently Using BIPAP: No Cardiac: No Neurological: Yes Headaches /Migraines Reproductive Disorders: Yes (MENORRHAGIA, CERVICAL DYSPLASIA) 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, 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 Sexually Transmitted Disease: Yes (+ TRICHOMONAS ON UA 08/03/18) HIV/AIDS: No Genitourinary: Yes UTI-Chronic Gastrointestinal: Yes Gall Bladder Disease Musculoskeletal: No Endocrine: No HEENT: No (WEARS GLASSES, SEVERAL BROKEN TEETH) Cancer: No Psychosocial: No Integumentary: No Blood Disorders: No Family Medical History Asthma SON SON FH: cancer AUNT UNCLE No Pertinent Family Hx Physical Exam Vital Signs Vital Signs - First Documented 09/06/18 09/06/18 20:00 21:06 Temp 98.8 Pulse 77 Resp 16 B/P (MAP) 109/75 (86) Pulse Ox 98 O2 Delivery Room Air Capillary Refill : Height/Weight/BMI Height: 5'3.00" Weight: 185lbs. 0.0oz. 83.629532rr; 32.8 BMI Method:Stated General Appearance: WD/WN, no apparent distress HEENT: PERRL/EOMI, normal ENT inspection Respiratory: no respiratory distress, no accessory muscle use Gastrointestinal: normal bowel sounds, soft, tenderness Extremities: normal range of motion, non-tender Neurologic/Psychiatric: alert, normal mood/affect, oriented x 3 Skin: normal color, warm/dry Progress/Results/Core Measures Results/Orders My Orders Orders - NISH AVENDAÑO APRN Fentanyl Injection (Sublimaze Injection (09/06/18 20:15) Ondansetron Injection (Zofran Injectio (09/06/18 20:15) Medications Given in ED Current Medications Medications Dose Ordered Sig/Berto Route Start Time Stop Time Status Last Admin Dose Admin Fentanyl Citrate 50 mcg ONCE ONCE IVP 09/06/18 20:15 09/06/18 20:16 DC 09/06/18 20:08 25 MCG Ondansetron HCl 4 mg ONCE ONCE IVP 09/06/18 20:15 09/06/18 20:16 DC 09/06/18 20:07 4 MG Vital Signs/I&O 09/06/18 09/06/18 20:00 21:06 Temp 98.8 98.8 Pulse 77 75 Resp 16 16 B/P (MAP) 109/75 (86) 94/66 (75) Pulse Ox 98 O2 Delivery Room Air Departure Impression Primary Impression: Postoperative pain Disposition: 01 HOME, SELF-CARE Condition: Stable Departure-Patient Inst. Decision time for Depature: 20:47 Referrals: HEVER DOHERTY MD (PCP/Family) Primary Care Physician Patient Instructions: Acute Pain, Adult, Postoperative Pain (DC) Scripts Tapentadol HCl (Nucynta) 50 Mg Tablet 50 MG PO Q6H PRN for PAIN-SEVERE, #14 TAB Prov: NISH AVENDAÑO APRN 09/06/18 NISH AVENDAÑO APRN Sep 06, 2018 20:08
[2018-09-06] MEDS ORDERED: ONDANSETRON 4 MG/2 ML (SDV) Z0FRAN IVP ONE (20:15)
[2018-09-06] MEDS ORDERED: fentaNYL INJECTION 100 MCG/2 ML AMP IVP ONE (20:15)
[2018-09-06] MEDS ORDERED: TAPE50TA2 PO (20:48)
[2018-09-06 21:06] VITALS: BP 94/66
== END 2018-09-06 21:12 | disposition home or self-care (01) ==
LOC: EDUNIT# 19:55 → ER 19:57
DX: G89.18 Other acute postprocedural pain (principal); R10.11 Right upper quadrant pain; J45.909 Unspecified asthma, uncomplicated; G43.909 Migraine, unspecified, not intractable, without status migrainosus; Z86.19 Personal history of other infectious and parasitic diseases; Z87.19 Personal history of other diseases of the digestive system; Z87.440 Personal history of urinary (tract) infections; Z87.448 Personal history of other diseases of urinary system; Z88.4 Allergy status to anesthetic agent; Z88.8 Allergy status to other drugs, medicaments and biological substances; Z91.041 Radiographic dye allergy status; Z88.5 Allergy status to narcotic agent; Z91.040 Latex allergy status; Z88.0 Allergy status to penicillin; Z88.6 Allergy status to analgesic agent; Z90.710 Acquired absence of both cervix and uterus; Z90.49 Acquired absence of other specified parts of digestive tract
CPT/HCPCS: 96374; 96375; 99283

== ENCOUNTER 2018-09-30 06:20 | Emergency (ER) | payer MEDICAID ==
[~2018-09-30] VITALS: Ht 160 cm; Wt 83.9 kg
[~2018-09-30 06:20] MED LIST changes: +TAPE50TA2 PO
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
[2018-09-30] MEDS ORDERED: LACTATED RINGERS 1,000 ML IV ONE (06:34)
--- NOTE | 2018-09-30 06:42 | ED Abdominal Pain ---
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 3 weeks ago on September 06 she had cholecystectomy by Dr. Enriquez for her biliary dyskinesis. Patient's been struggling with abdominal discomfort nausea and diarrhea. She was told not to use Imodium but instead use cholestyramine and Zofran. The Zofran is been helping with her nausea since Tuesday, 4 days ago however the other medicine she has not got yet due to a prior authorization. Yesterday she took 2 doses of Imodium to help with her diarrhea. She's not sure what she ate last night for dinner. She's had no fevers or chills. She's had a hysterectomy, tubal ligation, laparoscopy for ovarian cysts and cholecystectomy. The patient denies a history of pancreatitis, EGD or colonoscopy. No history of IBS. She denies drinking alcohol or having diabetes but she does have a history of hypertriglyceridemia she says. Allergies and Home Medications Allergies Coded Allergies: ketorolac tromethamine (Verified Allergy, Mild, 05/16/12) Iodinated Contrast- Oral and IV Dye (Unverified Allergy, Unknown, 04/24/15 ) butorphanol (Unverified Allergy, Unknown, LOST SIGHT, 04/24/15) codeine (Verified Allergy, Unknown, 09/12/05) folic acid (Verified Allergy, Unknown, 07/11/06) hydrocodone (Verified Allergy, Unknown, 09/06/18) iron (Verified Allergy, Unknown, 07/11/06) latex (Verified Allergy, Unknown, 07/11/06) morphine (Verified Allergy, Unknown, 08/07/16) oxycodone (Verified Allergy, Unknown, 09/06/18) penicillin G (Verified Allergy, Unknown, 07/11/06) tramadol (Verified Allergy, Unknown, 09/12/05) Home Medications Albuterol Sulfate 1 Puff Puff, 2 PUFF INH Q4H, (Reported) 1 PUFF = 90 MCG Tapentadol HCl 50 Mg Tablet, 50 MG PO Q6H PRN for PAIN-SEVERE Prescribed by: NISH AVENDAÑO on 09/06/182047 Patient Home Medication List Home Medication List Reviewed: Yes Review of Systems Review of Systems Constitutional: No chills, No diaphoresis Respiratory: Denies Cough, Denies Shortness of Air Cardiovascular: Denies Chest Pain, Denies Edema Gastrointestinal: See HPI, Abdomen Distended, Abdominal Pain, Diarrhea, Nausea , Poor Fluid Intake Genitourinary: Denies Burning, Denies Discharge Musculoskeletal: No back pain, No joint pain Skin: No pruritus, No rash Psychiatric/Neurological: Denies Headache, Denies Numbness Past Eiinofu-Jqborh-Zucqft Hx Patient Social History Alcohol Use: Denies Use Alcohol Beverage of Choice: Wine Recreational Drug Use: No Smoking Status: Current Everyday Smoker Type Used: Cigarettes Recent Foreign Travel: No Contact w/Someone Who Travel: No Immunizations Up To Date Tetanus Booster (TDap): Unknown PED Vaccines UTD: Yes Date of Influenza Vaccine: Aug 03, 2018 Seasonal Allergies Seasonal Allergies: Yes Past Medical History Surgeries: Yes (wisdom teeth, laporotomy) Appendectomy, Eye Surgery, Gallbladder, Hysterectomy, Oophorectomy Respiratory: Yes Asthma Currently Using CPAP: No Currently Using BIPAP: No Cardiac: No Neurological: Yes Headaches /Migraines Reproductive Disorders: Yes (MENORRHAGIA, CERVICAL DYSPLASIA) JBOSS ARCHITECT History: Hysterectomy, Menopausal Sexually Transmitted Disease: Yes (+ TRICHOMONAS ON UA 08/03/18) HIV/AIDS: No Genitourinary: Yes UTI-Chronic Gastrointestinal: Yes Gall Bladder Disease Musculoskeletal: No Endocrine: No HEENT: No (WEARS GLASSES, SEVERAL BROKEN TEETH) Cancer: No Psychosocial: No Integumentary: No Blood Disorders: No Family Medical History Asthma SON SON FH: cancer AUNT UNCLE No Pertinent Family Hx Physical Exam Vital Signs Vital Signs - First Documented 09/30/18 06:28 Temp 97.6 Pulse 84 Resp 18 B/P (MAP) 118/78 (91) Capillary Refill : Height/Weight/BMI Height: 5'3.00" Weight: 185lbs. 0.0oz. 83.220875rb; 32.8 BMI Method:Stated General Appearance: WD/WN, no apparent distress HEENT: PERRL/EOMI, pharynx normal Neck: full range of motion, normal inspection Respiratory: lungs clear, normal breath sounds, no respiratory distress, no accessory muscle use Cardiovascular: normal peripheral pulses, regular rate, rhythm Peripheral Pulses: 2+ Dorsalis Pedis (R), 2+ Left Dors-Pedis (L) Gastrointestinal: normal bowel sounds, tenderness (epigastric and right upper quadrant.), other (negative for [place] sign. Tender, nonrigid) Extremities: normal range of motion, non-tender, normal capillary refill Progress/Results/Core Measures Results/Orders Lab Results Laboratory Tests Test 09/30/18 06:35 09/30/18 07:15 Range/Units White Blood Count 8.0 4.3-11.0 10^3/uL Red Blood Count 4.36 4.35-5.85 10^6/uL Hemoglobin 14.0 11.5-16.0 G/DL Hematocrit 41 35-52 % Mean Corpuscular Volume 95 80-99 FL Mean Corpuscular Hemoglobin 32 25-34 PG Mean Corpuscular Hemoglobin Concent 34 32-36 G/DL Red Cell Distribution Width 12.6 10.0-14.5 % Platelet Count 246 130-400 10^3/uL Mean Platelet Volume 11.0 H 7.4-10.4 FL Neutrophils (%) (Auto) 41 L 42-75 % Lymphocytes (%) (Auto) 47 H 12-44 % Monocytes (%) (Auto) 6 0-12 % Eosinophils (%) (Auto) 5 0-10 % Basophils (%) (Auto) 0 0-10 % Neutrophils # (Auto) 3.3 1.8-7.8 X 10^3 Lymphocytes # (Auto) 3.8 1.0-4.0 X 10^3 Monocytes # (Auto) 0.5 0.0-1.0 X 10^3 Eosinophils # (Auto) 0.4 H 0.0-0.3 10^3/uL Basophils # (Auto) 0.0 0.0-0.1 10^3/uL Sodium Level 141 135-145 MMOL/L Potassium Level 3.0 L 3.6-5.0 MMOL/L Chloride Level 109 H 98-107 MMOL/L Carbon Dioxide Level 20 L 21-32 MMOL/L Anion Gap 12 5-14 MMOL/L Blood Urea Nitrogen 12 7-18 MG/DL Creatinine 0.79 0.60-1.30 MG/DL Estimat Glomerular Filtration Rate > 60 BUN/Creatinine Ratio 15 Glucose Level 99 70-105 MG/DL Calcium Level 9.5 8.5-10.1 MG/DL Corrected Calcium 9.2 8.5-10.1 MG/DL Magnesium Level 2.0 1.8-2.4 MG/DL Total Bilirubin 0.5 0.1-1.0 MG/DL Aspartate Amino Transf (AST/SGOT) 23 5-34 U/L Alanine Aminotransferase (ALT/SGPT) 31 0-55 U/L Alkaline Phosphatase 67 40-136 U/L Total Protein 6.8 6.4-8.2 GM/DL Albumin 4.4 3.2-4.5 GM/DL Lipase 27 8-78 U/L Urine Color YELLOW Urine Clarity CLEAR Urine pH 6 5-9 Urine Specific Morrice 1.015 L 1.016-1.022 Urine Protein NEGATIVE NEGATIVE Urine Glucose (UA) NEGATIVE NEGATIVE Urine Ketones NEGATIVE NEGATIVE Urine Nitrite NEGATIVE NEGATIVE Urine Bilirubin NEGATIVE NEGATIVE Urine Urobilinogen NORMAL NORMAL MG/DL Urine Leukocyte Esterase NEGATIVE NEGATIVE Urine RBC (Auto) 2+ H NEGATIVE Urine RBC 2-5 H /HPF Urine WBC RARE /HPF Urine Squamous Epithelial Cells 2-5 /HPF Urine Crystals NONE /LPF Urine Bacteria TRACE /HPF Urine Casts NONE /LPF Urine Mucus NEGATIVE /LPF Urine Culture Indicated YES Urine Opiates Screen NEGATIVE NEGATIVE Urine Oxycodone Screen NEGATIVE NEGATIVE Urine Methadone Screen NEGATIVE NEGATIVE Urine Propoxyphene Screen NEGATIVE NEGATIVE Urine Barbiturates Screen NEGATIVE NEGATIVE Ur Tricyclic Antidepressants Screen NEGATIVE NEGATIVE Urine Phencyclidine Screen NEGATIVE NEGATIVE Urine Amphetamines Screen NEGATIVE NEGATIVE Urine Methamphetamines Screen NEGATIVE NEGATIVE Urine Benzodiazepines Screen NEGATIVE NEGATIVE Urine Cocaine Screen NEGATIVE NEGATIVE Urine Cannabinoids Screen NEGATIVE NEGATIVE My Orders Orders - WHIT GERMAIN Cbc With Automated Diff (09/30/18 06:34) Comprehensive Metabolic Panel (09/30/18 06:34) Drug Screen Stat (Urine) (09/30/18 06:34) Lipase (09/30/18 06:34) Magnesium (09/30/18 06:34) Ua Culture If Indicated (09/30/18 06:34) Ed Iv/Invasive Line Start (09/30/18 06:34) Lactated Ringers (Lr 1000 Ml Iv Solution (09/30/18 06:34) Ondansetron Injection (Zofran Injectio (09/30/18 06:45) Fentanyl Injection (Sublimaze Injection (09/30/18 06:45) Promethazine Injection (Phenergan Injec (09/30/18 07:15) Urine Culture (09/30/18 07:15) Lidocaine 2% Viscous 15 Ml (Xylocaine Vi (09/30/18 08:00) Famotidine Tablet (Pepcid Tablet) (09/30/18 07:48) Antacid Suspension (Mylanta Suspension (09/30/18 08:00) Medications Given in ED Current Medications Medications Dose Ordered Sig/Berto Route Start Time Stop Time Status Last Admin Dose Admin Al Hydrox/Mg Hydrox/Simethicone 30 ml ONCE ONCE PO 09/30/18 08:00 09/30/18 08:01 DC 09/30/18 08:09 30 ML Fentanyl Citrate 50 mcg ONCE ONCE IVP 09/30/18 06:45 09/30/18 06:46 DC 09/30/18 06:45 50 MCG Lactated Ringer's 1,000 ml @ 0 mls/hr Q0M ONCE IV 09/30/18 06:34 09/30/18 06:37 DC 09/30/18 06:45 999 MLS/HR Lidocaine HCl 15 ml ONCE ONCE PO 09/30/18 08:00 09/30/18 08:01 DC 09/30/18 08:09 15 ML Ondansetron HCl 4 mg ONCE ONCE IVP 09/30/18 06:45 09/30/18 06:46 DC 09/30/18 06:45 4 MG Promethazine HCl 25 mg ONCE ONCE IVP 09/30/18 07:15 09/30/18 07:16 DC 09/30/18 07:30 25 MG Vital Signs/I&O 09/30/18 06:28 Temp 97.6 Pulse 84 Resp 18 B/P (MAP) 118/78 (91) Progress Progress Note #1: Time: 06:41 Progress Note Fluids, pain medicines, Zofran and labs. Her heart rate is around 90 but otherwise vital signs are aseptic. Sphincter dysfunction, early postcholecystectomy symptom, gastritis, pancreatitis, etc. If we get her nausea under control will try a GI cocktail. Progress Note #2: Time: 08:06 Progress Note Pain is significantly relieved down to a 4 out of 10. We'll give a GI cocktail. If this helps with and recommend and acids otherwise were going to reinforce dietary instructions and follow-up with primary care or general surgery. Departure Impression Primary Impression: Postcholecystectomy syndrome Disposition: 01 HOME, SELF-CARE Condition: Improved Departure-Patient Inst. Decision time for Depature: 08:20 Referrals: SHI ENRIQUEZ DANIEL J MD (PCP/Family) Primary Care Physician Patient Instructions: Diarrhea in Adolescents and Adults Add. Discharge Instructions: Go easy on the fat. Avoid high-fat foods, fried and greasy foods, and fatty sauces and gravies for at least a week after surgery. Instead, choose fat-free or low-fat foods. Low-fat foods are those with no more than 3 grams of fat a serving. Check labels and follow the serving size listed. Increase the fiber in your diet. This can help normalize bowel movements. Add soluble fiber, such as oats and barley, to your diet. But be sure to increase the amount of fiber slowly, such as over several weeks, because too much fiber at first can make gas and cramping worse. Eat smaller, more-frequent meals. This may ensure a better mix with available bile. A healthy meal should include small amounts of lean protein, such as poultry, fish or fat-free dairy, along with vegetables, fruits and whole grains. You may also try limiting foods that tend to worsen diarrhea, including: Caffeine Dairy products Very sweet foods Please shrimp picker the cholestyramine as prescribed and start that and if not seeing some improvement couple weeks and then follow up with general surgery, Dr. Enriquez or your primary care provider for further management and evaluation. Work/School Note: Work Release Form Date Seen in the Emergency Department: Sep 30, 2018 Return to Work: Sep 30, 2018 Restrictions: No Restrictions WHIT GERMAIN Sep 30, 2018 06:42
[2018-09-30 06:43] LABS: BASOPHILS % (AUTO) 0 % (0-10); EOSINOPHILS # (AUTO) 0.4 10^3/uL (0.0-0.3); EOSINOPHILS % (AUTO) 5 % (0-10); HEMATOCRIT 41 % (35-52); LYMPHOCYTES # (AUTO) 3.8 X 10^3 (1.0-4.0); LYMPHOCYTES % (AUTO) 47 % (12-44); MEAN CORPUSCULAR HEMOGLOBIN 32 PG (25-34); MEAN CORPUSCULAR HGB CONC 34 G/DL (32-36); MEAN CORPUSCULAR VOLUME 95 FL (80-99); MONOCYTES # (AUTO) 0.5 X 10^3 (0.0-1.0); MONOCYTES % (AUTO) 6 % (0-12); NEUTROPHILS # (AUTO) 3.3 X 10^3 (1.8-7.8); NEUTROPHILS % (AUTO) 41 % (42-75); PLATELET COUNT 246 10^3/uL (130-400); RED CELL DISTRIBUTION WIDTH 12.6 % (10.0-14.5)
[2018-09-30] MEDS ORDERED: ONDANSETRON 4 MG/2 ML (SDV) Z0FRAN IVP ONE (06:45)
[2018-09-30] MEDS ORDERED: fentaNYL INJECTION 100 MCG/2 ML AMP IVP ONE (06:45)
[2018-09-30 07:10] LABS: ALANINE AMINOTRANSFERASE 31 U/L (0-55); ALBUMIN 4.4 GM/DL (3.2-4.5); ALKALINE PHOSPHATASE 67 U/L (40-136); BILIRUBIN,TOTAL 0.5 MG/DL (0.1-1.0); BUN/CREATININE RATIO 15; CALCIUM 9.5 MG/DL (8.5-10.1); CARBON DIOXIDE 20 MMOL/L (21-32); CHLORIDE 109 MMOL/L (98-107); CREATININE SERUM 0.79 MG/DL (0.60-1.30); GFR ESTIMATED > 60; GLUCOSE 99 MG/DL (70-105); LIPASE 27 U/L (8-78); SODIUM 141 MMOL/L (135-145); TOTAL PROTEIN 6.8 GM/DL (6.4-8.2)
[2018-09-30] MEDS ORDERED: PROMETHAZINE INJ 25 MG/ML (PHENERGAN) AMP IVP ONE (07:15)
[2018-09-30 07:21] LABS: BILIRUBIN,URINE NEGATIVE (NEGATIVE); CLARITY,URINE CLEAR; COLOR,URINE YELLOW; GLUCOSE, URINE (UA) NEGATIVE (NEGATIVE); KETONES,URINE NEGATIVE (NEGATIVE); LEUKOCYTE ESTERASE ,URINE NEGATIVE (NEGATIVE); NITRITE,URINE NEGATIVE (NEGATIVE); PH,URINE 6 (5-9); PROTEIN,URINE NEGATIVE (NEGATIVE); UROBILINOGEN,URINE NORMAL (NORMAL)
[2018-09-30 07:40] LABS: AMPHETAMINE SCREEN, URINE NEGATIVE (NEGATIVE); BARBITURATE SCREEN URINE NEGATIVE (NEGATIVE); BENZODIAZEPINES SCREEN URINE NEGATIVE (NEGATIVE); CANNABINOID SCREEN, URINE NEGATIVE (NEGATIVE); COCAINE SCREEN URINE NEGATIVE (NEGATIVE); METHADONE STAT NEGATIVE (NEGATIVE); METHAMPHETAMINE SCREEN URINE S NEGATIVE (NEGATIVE); OPIATE SCREEN URINE NEGATIVE (NEGATIVE); OXYCODONE STAT NEGATIVE (NEGATIVE); PROPOXYPHENE STAT NEGATIVE (NEGATIVE); TRICYCLIC ANTIDEPRESSANTS SCRE NEGATIVE (NEGATIVE)
[2018-09-30 07:41] LABS: BACTERIA,URINE TRACE /HPF; WBC,URINE RARE /HPF
[2018-09-30] MEDS ORDERED: FAMOTIDINE 20 MG (PEPCID) TABLET PO STA (07:48)
[2018-09-30] MEDS ORDERED: ANTACID SUSP 30 ML UDC (MYLANTA) PO ONE (08:00)
[2018-09-30] MEDS ORDERED: LIDOCAINE 2% VISCOUS 15 ML UDC PO ONE (08:00)
[2018-09-30 08:39] VITALS: BP 96/69
== END 2018-09-30 08:39 | disposition home or self-care (01) ==
LOC: EDUNIT# 06:20 → ER 06:21
DX: K91.5 Postcholecystectomy syndrome (principal); J45.909 Unspecified asthma, uncomplicated; G43.909 Migraine, unspecified, not intractable, without status migrainosus; F17.210 Nicotine dependence, cigarettes, uncomplicated; Z87.440 Personal history of urinary (tract) infections; Z87.19 Personal history of other diseases of the digestive system; Z86.19 Personal history of other infectious and parasitic diseases; Z87.448 Personal history of other diseases of urinary system; Z98.890 Other specified postprocedural states; Z88.4 Allergy status to anesthetic agent; Z91.041 Radiographic dye allergy status; Z88.5 Allergy status to narcotic agent; Z88.8 Allergy status to other drugs, medicaments and biological substances; Z91.040 Latex allergy status; Z88.0 Allergy status to penicillin; Z88.6 Allergy status to analgesic agent; Z90.49 Acquired absence of other specified parts of digestive tract; Z90.710 Acquired absence of both cervix and uterus
CPT/HCPCS: 36415; 80053; 80306; 81000; 83690; 83735; 85025; 87088

== ENCOUNTER 2019-02-16 23:14 | Emergency (ER) | payer MEDICAID ==
[~2019-02-16] VITALS: Ht 160 cm; Wt 80.5 kg
[2019-02-16] MEDS ORDERED: ONDANSETRON 4 MG (ZOFRAN) ORAL DISSOLVE TAB PO ONE (23:45)
--- NOTE | 2019-02-16 23:49 | ED Abdominal Pain ---
General Chief Complaint: Abdominal/GI Problems Stated Complaint: RT UPPER QUADRANT PAIN Source of Information: Patient Exam Limitations: No Limitations History of Present Illness Date Seen by Provider: Feb 16, 2019 Time Seen by Provider: 23:28 Initial Comments The patient presents to ER by private conveyance with chief complaint of 3 days of constant pain in her right upper quadrant of her abdomen with intermittent burning after eating or movement. She saw her primary care doctor, Dr. Jean on Tuesday, 3 days ago and he told her to go on Naprosyn and an antacid check blood work saying that was not her pancreas and liver. She had a gallbladder removed surgically in September 2018. The is not having any diarrhea but she is having nausea. She rates the pain is about a 7 out of 10. She denies fevers chills or recent trauma. She's not having any dysuria is having occasional pain down in her suprapubic region as well and wonders she's not having a bladder infection. She denies history of kidney stones or hematuria. Allergies and Home Medications Allergies Coded Allergies: ketorolac tromethamine (Verified Allergy, Mild, 05/16/12) Iodinated Contrast- Oral and IV Dye (Unverified Allergy, Unknown, 04/24/15) butorphanol (Unverified Allergy, Unknown, LOST SIGHT, 04/24/15) codeine (Verified Allergy, Unknown, 09/12/05) folic acid (Verified Allergy, Unknown, 07/11/06) hydrocodone (Verified Allergy, Unknown, 09/06/18) iron (Verified Allergy, Unknown, 07/11/06) latex (Verified Allergy, Unknown, 07/11/06) morphine (Verified Allergy, Unknown, 08/07/16) oxycodone (Verified Allergy, Unknown, 09/06/18) penicillin G (Verified Allergy, Unknown, 07/11/06) tramadol (Verified Allergy, Unknown, 09/12/05) Home Medications Albuterol Sulfate 1 Puff Puff, 2 PUFF INH Q4H, (Reported) 1 PUFF = 90 MCG Tapentadol HCl 50 Mg Tablet, 50 MG PO Q6H PRN for PAIN-SEVERE Prescribed by: NISH AVENDAÑO on 09/06/182047 Patient Home Medication List Home Medication List Reviewed: Yes Review of Systems Review of Systems Constitutional: No chills, No diaphoresis EENTM: No Blurred Vision, No Double Vision Respiratory: Denies Cough, Denies Shortness of Air Cardiovascular: Denies Chest Pain, Denies Edema Gastrointestinal: See HPI; Denies Abdomen Distended; Abdominal Pain; Denies Blood Streaked Stools Genitourinary: Denies Burning, Denies Discharge, Denies Frequency, Denies Flank Pain, Denies Hematuria Musculoskeletal: No back pain, No joint pain Skin: No pruritus, No rash Psychiatric/Neurological: Denies Headache, Denies Numbness Past Peubxhx-Jwaxhi-Jpnvzb Hx Patient Social History Alcohol Use: Occasionally Uses Alcohol Beverage of Choice: Wine Recreational Drug Use: No Smoking Status: Current Everyday Smoker Type Used: Cigarettes Recent Foreign Travel: No Contact w/Someone Who Travel: No Immunizations Up To Date Tetanus Booster (TDap): Unknown PED Vaccines UTD: Yes Date of Influenza Vaccine: Aug 03, 2018 Seasonal Allergies Seasonal Allergies: Yes Past Medical History Surgeries: Yes (wisdom teeth, laporotomy) Appendectomy, Eye Surgery, Gallbladder, Hysterectomy, Oophorectomy Respiratory: Yes Asthma Currently Using CPAP: No Currently Using BIPAP: No Cardiac: No Neurological: Yes Headaches /Migraines Reproductive Disorders: Yes (MENORRHAGIA, CERVICAL DYSPLASIA) 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, 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 Sexually Transmitted Disease: Yes (+ TRICHOMONAS ON UA 08/03/18) HIV/AIDS: No Genitourinary: Yes UTI-Chronic Gastrointestinal: Yes Gall Bladder Disease Musculoskeletal: No Endocrine: No HEENT: No (WEARS GLASSES, SEVERAL BROKEN TEETH) Cancer: No Psychosocial: No Integumentary: No Blood Disorders: No Family Medical History Asthma SON SON FH: cancer AUNT UNCLE No Pertinent Family Hx Physical Exam Vital Signs Vital Signs - First Documented 02/16/19 23:30 Temp 36.2 Pulse 78 Resp 16 B/P (MAP) 113/74 (87) Pulse Ox 98 O2 Delivery Room Air Capillary Refill : Height/Weight/BMI Height: 5'3.00" Weight: 185lbs. 0.0oz. 83.373006pf; 32.8 BMI Method:Stated General Appearance: WD/WN, mild distress HEENT: PERRL/EOMI, pharynx normal Neck: full range of motion, normal inspection Respiratory: lungs clear, normal breath sounds, no respiratory distress, no accessory muscle use Cardiovascular: normal peripheral pulses, regular rate, rhythm Peripheral Pulses: 2+ Radial Pulses (R), 2+ Radial Pulses (L) Gastrointestinal: normal bowel sounds (active), soft, tenderness (right upper q uadrant and mildly over the suprapubic region), other (negative for so as her other mesenteric signs) Extremities: normal range of motion, normal capillary refill Progress/Results/Core Measures Results/Orders Lab Results Laboratory Tests Test 02/16/19 23:40 02/16/19 23:57 Range/Units Urine Color YELLOW Urine Clarity SLIGHTLY CLOUDY Urine pH 6 5-9 Urine Specific [place] 1.020 1.016-1.022 Urine Protein 1+ H NEGATIVE Urine Glucose (UA) NEGATIVE NEGATIVE Urine Ketones NEGATIVE NEGATIVE Urine Nitrite NEGATIVE NEGATIVE Urine Bilirubin NEGATIVE NEGATIVE Urine Urobilinogen NORMAL NORMAL MG/DL Urine Leukocyte Esterase 1+ H NEGATIVE Urine RBC (Auto) 1+ H NEGATIVE Urine RBC RARE /HPF Urine WBC 2-5 /HPF Urine Squamous Epithelial Cells 25-50 H /HPF Urine Crystals NONE /LPF Urine Bacteria TRACE /HPF Urine Casts NONE /LPF Urine Mucus MODERATE H /LPF Urine Culture Indicated YES Urine Opiates Screen NEGATIVE NEGATIVE Urine Oxycodone Screen NEGATIVE NEGATIVE Urine Methadone Screen NEGATIVE NEGATIVE Urine Propoxyphene Screen NEGATIVE NEGATIVE Urine Barbiturates Screen NEGATIVE NEGATIVE Ur Tricyclic Antidepressants Screen NEGATIVE NEGATIVE Urine Phencyclidine Screen NEGATIVE NEGATIVE Urine Amphetamines Screen NEGATIVE NEGATIVE Urine Methamphetamines Screen NEGATIVE NEGATIVE Urine Benzodiazepines Screen NEGATIVE NEGATIVE Urine Cocaine Screen NEGATIVE NEGATIVE Urine Cannabinoids Screen NEGATIVE NEGATIVE White Blood Count 10.4 4.3-11.0 10^3/uL Red Blood Count 4.23 L 4.35-5.85 10^6/uL Hemoglobin 13.5 11.5-16.0 G/DL Hematocrit 41 35-52 % Mean Corpuscular Volume 96 80-99 FL Mean Corpuscular Hemoglobin 32 25-34 PG Mean Corpuscular Hemoglobin Concent 33 32-36 G/DL Red Cell Distribution Width 12.8 10.0-14.5 % Platelet Count 251 130-400 10^3/uL Mean Platelet Volume 10.8 H 7.4-10.4 FL Neutrophils (%) (Auto) 49 42-75 % Lymphocytes (%) (Auto) 43 12-44 % Monocytes (%) (Auto) 6 0-12 % Eosinophils (%) (Auto) 2 0-10 % Basophils (%) (Auto) 0 0-10 % Neutrophils # (Auto) 5.1 1.8-7.8 X 10^3 Lymphocytes # (Auto) 4.5 H 1.0-4.0 X 10^3 Monocytes # (Auto) 0.6 0.0-1.0 X 10^3 Eosinophils # (Auto) 0.3 0.0-0.3 10^3/uL Basophils # (Auto) 0.0 0.0-0.1 10^3/uL Sodium Level 142 135-145 MMOL/L Potassium Level 3.3 L 3.6-5.0 MMOL/L Chloride Level 105 98-107 MMOL/L Carbon Dioxide Level 25 21-32 MMOL/L Anion Gap 12 5-14 MMOL/L Blood Urea Nitrogen 6 L 7-18 MG/DL Creatinine 0.75 0.60-1.30 MG/DL Estimat Glomerular Filtration Rate > 60 BUN/Creatinine Ratio 8 Glucose Level 97 70-105 MG/DL Calcium Level 9.3 8.5-10.1 MG/DL Corrected Calcium 9.2 8.5-10.1 MG/DL Total Bilirubin 0.4 0.1-1.0 MG/DL Aspartate Amino Transf (AST/SGOT) 18 5-34 U/L Alanine Aminotransferase (ALT/SGPT) 16 0-55 U/L Alkaline Phosphatase 88 40-136 U/L Total Protein 6.7 6.4-8.2 GM/DL Albumin 4.1 3.2-4.5 GM/DL Lipase 46 8-78 U/L My Orders Orders - WHIT GERMAIN Ua Culture If Indicated (02/16/19 23:43) Urine Bedside (02/16/19 23:43) Cbc With Automated Diff (02/16/19 23:43) Comprehensive Metabolic Panel (02/16/19 23:43) Lipase (02/16/19 23:43) Drug Screen Stat (Urine) (02/16/19 23:43) Ondansetron Oral Dissolve Tab (Zofran (02/16/19 23:45) Urine Culture (02/16/19 23:40) Medications Given in ED Current Medications Medications Dose Ordered Sig/Berto Route Start Time Stop Time Status Last Admin Dose Admin Ondansetron HCl 4 mg ONCE ONCE PO 02/16/19 23:45 02/16/19 23:46 DC 02/16/19 23:54 4 MG Vital Signs/I&O 02/16/19 23:30 Temp 36.2 Pulse 78 Resp 16 B/P (MAP) 113/74 (87) Pulse Ox 98 O2 Delivery Room Air Progress Progress Note #1: Time: 23:48 Progress Note She has declined anything for pain but will give her Zofran for nausea. She has declined an IV but we will do a blood draw and urinalysis and discuss results with her. Pancreatitis versus late retained stone? Urinalysis. We cannot give her and acids until nausea Tones down. Gastritis/PUD is a possibility. She's never had endoscopy so we have suggested that to her. Progress Note #2: Time: 01:11 Progress Note We reviewed her labs and discussed that maybe the next place to look with the endoscopy. She had her gallbladder out by Dr. Enriquez and would like to follow-up with him so we will give her a referral back to him. We'll put her on Carafate she has already started taking Protonix. Departure Impression Primary Impression: Gastritis Qualified Codes: K29.00 - Acute gastritis without bleeding Disposition: HOME, SELF-CARE Condition: Stable Departure-Patient Inst. Decision time for Depature: 01:12 Referrals: SHI ENRIQUEZ DANIEL J MD (PCP/Family) Primary Care Physician Patient Instructions: Gastritis (DC) Add. Discharge Instructions: Start taking Carafate one half hour prior to meals and at bedtime for the next 2 weeks. Continue taking the Protonix. Phenergan 1 tablet every 6 hours as needed for nausea. Call Dr. Enriquez and set up an endoscopy. Follow-up with primary care as necessary. All discharge instructions reviewed with patient and/or family. Voiced understanding. Scripts Promethazine HCl (Promethazine Tablet) 25 Mg Tablet 25 MG PO Q6H PRN for NAUSEA/VOMITING, #15 TAB 0 Refills Prov: WHIT GERMAIN 02/17/19 Sucralfate (Carafate) 1 Gm Tablet 1 GM PO QIDACHS for 14 Days, #56 TAB 0 Refills Prov: WHIT GERMAIN 02/17/19 Copy Copies To 1: SHI ENRIQUEZ DO; HEVER DOHERTY MD, TITUS J Feb 16, 2019 23:49
[2019-02-17 00:07] LABS: AMPHETAMINE SCREEN, URINE NEGATIVE (NEGATIVE); BARBITURATE SCREEN URINE NEGATIVE (NEGATIVE); BENZODIAZEPINES SCREEN URINE NEGATIVE (NEGATIVE); CANNABINOID SCREEN, URINE NEGATIVE (NEGATIVE); COCAINE SCREEN URINE NEGATIVE (NEGATIVE); METHADONE STAT NEGATIVE (NEGATIVE); METHAMPHETAMINE SCREEN URINE S NEGATIVE (NEGATIVE); OPIATE SCREEN URINE NEGATIVE (NEGATIVE); OXYCODONE STAT NEGATIVE (NEGATIVE); PROPOXYPHENE STAT NEGATIVE (NEGATIVE); TRICYCLIC ANTIDEPRESSANTS SCRE NEGATIVE (NEGATIVE)
[2019-02-17 00:07] LABS: BASOPHILS % (AUTO) 0 % (0-10); EOSINOPHILS # (AUTO) 0.3 10^3/uL (0.0-0.3); EOSINOPHILS % (AUTO) 2 % (0-10); HEMATOCRIT 41 % (35-52); HEMOGLOBIN 13.5 G/DL (11.5-16.0); LYMPHOCYTES # (AUTO) 4.5 X 10^3 (1.0-4.0); LYMPHOCYTES % (AUTO) 43 % (12-44); MEAN CORPUSCULAR HEMOGLOBIN 32 PG (25-34); MEAN CORPUSCULAR HGB CONC 33 G/DL (32-36); MEAN CORPUSCULAR VOLUME 96 FL (80-99); MEAN PLATELET VOLUME 10.8 FL (7.4-10.4); MONOCYTES # (AUTO) 0.6 X 10^3 (0.0-1.0); MONOCYTES % (AUTO) 6 % (0-12); NEUTROPHILS # (AUTO) 5.1 X 10^3 (1.8-7.8); NEUTROPHILS % (AUTO) 49 % (42-75); PLATELET COUNT 251 10^3/uL (130-400); RED CELL DISTRIBUTION WIDTH 12.8 % (10.0-14.5); WHITE BLOOD COUNT 10.4 10^3/uL (4.3-11.0)
[2019-02-17 00:09] LABS: BILIRUBIN,URINE NEGATIVE (NEGATIVE); CLARITY,URINE SLIGHTLY CLOUDY; COLOR,URINE YELLOW; GLUCOSE, URINE (UA) NEGATIVE (NEGATIVE); KETONES,URINE NEGATIVE (NEGATIVE); LEUKOCYTE ESTERASE ,URINE 1+ (NEGATIVE); NITRITE,URINE NEGATIVE (NEGATIVE); PH,URINE 6 (5-9); PROTEIN,URINE 1+ (NEGATIVE); UROBILINOGEN,URINE NORMAL (NORMAL)
[2019-02-17 00:16] LABS: BACTERIA,URINE TRACE /HPF; RBC,URINE RARE /HPF; SQUAMOUS EPITHELIAL CELL,UR 25-50 /HPF
[2019-02-17 00:26] LABS: ALANINE AMINOTRANSFERASE 16 U/L (0-55); ALBUMIN 4.1 GM/DL (3.2-4.5); ALKALINE PHOSPHATASE 88 U/L (40-136); BILIRUBIN,TOTAL 0.4 MG/DL (0.1-1.0); BUN/CREATININE RATIO 8; CALCIUM 9.3 MG/DL (8.5-10.1); CARBON DIOXIDE 25 MMOL/L (21-32); CHLORIDE 105 MMOL/L (98-107); CREATININE SERUM 0.75 MG/DL (0.60-1.30); GFR ESTIMATED > 60; GLUCOSE 97 MG/DL (70-105); LIPASE 46 U/L (8-78); POTASSIUM 3.3 MMOL/L (3.6-5.0); SODIUM 142 MMOL/L (135-145); TOTAL PROTEIN 6.7 GM/DL (6.4-8.2)
[2019-02-17] MEDS ORDERED: PROM25TA14 PO (01:14)
[2019-02-17] MEDS ORDERED: SUCR1TAB36 PO (01:14)
[2019-02-17 01:20] VITALS: BP 95/68
== END 2019-02-17 01:20 | disposition home or self-care (01) ==
LOC: EDUNIT# 23:14 → ER 23:17
DX: K29.00 Acute gastritis without bleeding (principal); J45.909 Unspecified asthma, uncomplicated; G43.909 Migraine, unspecified, not intractable, without status migrainosus; F17.210 Nicotine dependence, cigarettes, uncomplicated; Z87.440 Personal history of urinary (tract) infections; Z90.710 Acquired absence of both cervix and uterus; Z90.49 Acquired absence of other specified parts of digestive tract; Z88.5 Allergy status to narcotic agent; Z91.041 Radiographic dye allergy status; Z91.040 Latex allergy status; Z88.0 Allergy status to penicillin; Z88.8 Allergy status to other drugs, medicaments and biological substances
CPT/HCPCS: 36415; 80053; 80306; 81000; 83690; 84703; 85025; 87088; 99283

== ENCOUNTER → 2020-02-15 | Outpatient (CLI) | payer MEDICAID ==
[~2020-02-15] MED LIST changes: +PROM25TA14 PO; +SUCR1TAB36 PO
--- NOTE | 2020-02-15 16:11 | Diagnostic Imaging Report ---
INDICATION: Cough and shortness of breath. TIME OF EXAM: 03:50 p.m. Correlation is made with prior chest from 08/14/2018. FINDINGS: The heart size is normal. The pulmonary vascularity is unremarkable. The lungs are clear. No infiltrate, effusion or pneumothorax is detected. IMPRESSION: No acute cardiopulmonary process is detected. Dictated by: Dictated on workstation # [id number]
== END ==
LOC: RAD 15:41
PROVIDERS: ATTEND Family Medicine
DX: R05 Cough (principal); R06.02 Shortness of breath
CPT/HCPCS: 71046

== ENCOUNTER 2020-04-27 14:04 | Emergency (ER) | payer MEDICAID ==
[~2020-04-27] VITALS: Ht 160 cm; Wt 74.8 kg
--- NOTE | 2020-04-27 14:54 | ED Upper Extremity ---
General Chief Complaint: Upper Extremity Stated Complaint: R HAND INJ History of Present Illness Date Seen by Provider: Apr 27, 2020 Time Seen by Provider: 14:54 Initial Comments This is a well-appearing 31-year-old female who presents to the ER with c omplaints of right wrist pain after getting smashed in a door at work 2 days ago. Has been having increasing pain in her right wrist with difficulty moving it. Sought ED evaluation to assess if she has broken anything. Rates pain 6/10, describes as dull ache and sharp stabbing with movement. Took 3 Ibuprofen this morning which did not improve symptoms. Denies decrease in sensation, numbness, tingling. Allergies and Home Medications Allergies Coded Allergies: ketorolac tromethamine (Verified Allergy, Mild, 05/16/12) Iodinated Contrast- Oral and IV Dye (Unverified Allergy, Unknown, 04/24/15) butorphanol (Unverified Allergy, Unknown, LOST SIGHT, 04/24/15) codeine (Verified Allergy, Unknown, 09/12/05) folic acid (Verified Allergy, Unknown, 07/11/06) hydrocodone (Verified Allergy, Unknown, 09/06/18) iron (Verified Allergy, Unknown, 07/11/06) latex (Verified Allergy, Unknown, 07/11/06) morphine (Verified Allergy, Unknown, 08/07/16) oxycodone (Verified Allergy, Unknown, 09/06/18) penicillin G (Verified Allergy, Unknown, 07/11/06) tramadol (Verified Allergy, Unknown, 09/12/05) Home Medications Albuterol Sulfate 1 Puff Puff, 2 PUFF INH Q4H, (Reported) 1 PUFF = 90 MCG Promethazine HCl 25 Mg Tablet, 25 MG PO Q6H PRN for NAUSEA/VOMITING Prescribed by: WHIT GERMAIN on 02/17/19113 Sucralfate 1 Gm Tablet, 1 GM PO QIDACHS Prescribed by: WHIT GERMAIN on 02/17/19113 Tapentadol HCl 50 Mg Tablet, 50 MG PO Q6H PRN for PAIN-SEVERE Prescribed by: NISH AVENDAÑO on 09/06/182047 Patient Home Medication List Home Medication List Reviewed: Yes Review of Systems Constitutional: no symptoms reported EENTM: no symptoms reported Respiratory: no symptoms reported Cardiovascular: no symptoms reported Gastrointestinal: no symptoms reported Genitourinary: no symptoms reported Musculoskeletal: see HPI Skin: other (bruising on right wrist) Psychiatric/Neurological: No Symptoms Reported Past Ookwbsa-Maxooj-Lupilx Hx Patient Social History Alcohol Beverage of Choice: Wine Type Used: Cigarettes 2nd Hand Smoke Exposure: No Recent Foreign Travel: No Contact w/Someone Who Travel: No Physical Abuse: No Sexual Abuse: No Mistreated: No Fear: No Immunizations Up To Date Tetanus Booster (TDap): Unknown PED Vaccines UTD: Yes Date of Influenza Vaccine: Aug 03, 2018 Seasonal Allergies Seasonal Allergies: Yes Past Medical History Surgeries: Yes (wisdom teeth, laporotomy) Appendectomy, Eye Surgery, Gallbladder, Hysterectomy, Oophorectomy Respiratory: Yes Asthma Currently Using CPAP: No Currently Using BIPAP: No Cardiac: No Neurological: Yes Headaches /Migraines Reproductive Disorders: Yes (MENORRHAGIA, CERVICAL DYSPLASIA) 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, 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 Sexually Transmitted Disease: Yes (+ TRICHOMONAS ON UA 08/03/18) HIV/AIDS: No Genitourinary: Yes UTI-Chronic Gastrointestinal: Yes Gall Bladder Disease Musculoskeletal: No Endocrine: No HEENT: No (WEARS GLASSES, SEVERAL BROKEN TEETH) Cancer: No Psychosocial: No Integumentary: No Blood Disorders: No Family Medical History Asthma SON SON FH: cancer AUNT UNCLE No Pertinent Family Hx Physical Exam Vital Signs Vital Signs - First Documented 04/27/20 04/27/20 14:30 15:42 Temp 36.8 Pulse 90 Resp 20 B/P (MAP) 114/78 (90) Pulse Ox 99 O2 Delivery Room Air Capillary Refill : Height, Weight, BMI Height: 5'3.00" Weight: 185lbs. 0.0oz. 83.705971zp; 31.00 BMI Method:Stated General Appearance: WD/WN, no apparent distress HEENT: PERRL/EOMI Neck: full range of motion, normal inspection Cardiovascular: regular rate, rhythm, no murmur Respiratory: lungs clear, normal breath sounds Elbow/Forearm: normal inspection, non-tender, no evidence of injury Wrist: No asymmetry; Yes ecchymosis, Yes limited ROM, Yes pain, Yes soft tissue tenderness Hand: normal inspection, Right, bone tenderness, limited ROM Neurologic/Tendon: normal sensation, normal motor functions, normal tendon functions, responds to pain Neurologic/Psychiatric: no motor/sensory deficits, alert, normal mood/affect, oriented x 3 Skin: normal color, warm/dry Progress/Results/Core Measures Results/Orders My Orders Orders - RICKEY SARABIA APRN Wrist, Right, 3 Views Or More (04/27/20 14:52) Vital Signs/I&O 04/27/20 04/27/20 14:30 15:42 Temp 36.8 Pulse 90 90 Resp 20 20 B/P (MAP) 114/78 (90) 114/78 Pulse Ox 99 99 O2 Delivery Room Air Progress Progress Note : Progress Note Reviewed discharge plan of care and she is agreeable with plan. Diagnostic Imaging Diagonstic Imaging: Xray Plain Films/CT/US/NM/MRI: other (wrist) Comments NAME: DIANA KIRK [facility] REC#: [id number] PT STATUS: REG ER : 1980 PHYSICIAN: RICKEY SARABIA APRN ADMIT DATE: 04/27/20/ER Signed Date of Exam:04/27/20 WRIST, RIGHT, 3 VIEWS OR MORE EXAMINATION: Right wrist 3 or more views. REASON FOR EXAM: Wrist pain. Caught in a door two days ago. COMPARISON: None available. FINDINGS: There is no acute fracture or dislocation of the right wrist. There is normal alignment of the wrist and carpel bones. The imaged joint spaces are preserved. No large joint effusion is seen in the right wrist. The surrounding soft tissues are unremarkable. IMPRESSION: No acute fracture or dislocation in the right wrist. If symptoms persist, recommend repeat evaluation in 7-10 days to evaluate for occult fracture. Dictated by: Dictated on workstation # [id number] Dict: 04/27/20 1526 Trans: 04/27/20 1530 [facility] [id number] Interpreted by: ABDULAZIZ RODRIGUEZ DO Electronically signed by: ABDULAZIZ RODRIGUEZ DO 04/27/20 1530 Departure Impression Primary Impression: Contusion of wrist Disposition: 01 HOME, SELF-CARE Condition: Stable/Unchanged Departure-Patient Inst. Decision time for Depature: 15:37 Referrals: HEVER DOHERTY MD (PCP/Family) Primary Care Physician Patient Instructions: Contusion (DC) Add. Discharge Instructions: Plan: 1. Discharge home. 2. Keep elevated above your heart for the next 48 hours. 3. Use janet wrap to help with pain. 4. Ice 20 mins at a time 4-6x per day for discomfort. 5. If symptoms persist follow-up with your primary care doctor for repeat x-ray. 6. Return for any new or worsening symptoms. All discharge instructions reviewed with patient and/or family. Voiced understanding. RICKEY SARABIA GIS PROGRAMMER Apr 27, 2020 14:54
--- NOTE | 2020-04-27 15:30 | Diagnostic Imaging Report ---
EXAMINATION: Right wrist 3 or more views. REASON FOR EXAM: Wrist pain. Caught in a door two days ago. COMPARISON: None available. FINDINGS: There is no acute fracture or dislocation of the right wrist. There is normal alignment of the wrist and carpel bones. The imaged joint spaces are preserved. No large joint effusion is seen in the right wrist. The surrounding soft tissues are unremarkable. IMPRESSION: No acute fracture or dislocation in the right wrist. If symptoms persist, recommend repeat evaluation in 7-10 days to evaluate for occult fracture. Dictated by: Dictated on workstation # [id number]
[2020-04-27 15:42] VITALS: BP 114/78
== END 2020-04-27 15:42 | disposition home or self-care (01) ==
LOC: EDUNIT# 14:04 → ER 14:05
DX: S60.211A Contusion of right wrist, initial encounter (principal); Z80.9 Family history of malignant neoplasm, unspecified; J45.909 Unspecified asthma, uncomplicated; Z91.041 Radiographic dye allergy status; Z91.040 Latex allergy status; Z88.5 Allergy status to narcotic agent; Z88.1 Allergy status to other antibiotic agents; Z88.6 Allergy status to analgesic agent; Z88.0 Allergy status to penicillin; Z88.8 Allergy status to other drugs, medicaments and biological substances; W23.1XXA Caught, crushed, jammed, or pinched between stationary objects, initial encounter
CPT/HCPCS: 73110

== ENCOUNTER 2020-11-17 16:43 | Emergency (ER) | payer MEDICAID ==
[~2020-11-17] VITALS: Ht 160 cm; Wt 89.0 kg
--- NOTE | 2020-11-17 17:13 | ED General ---
General Chief Complaint: General Problems/Pain Stated Complaint: NUMBNESS/TINGLING IN EXTREMITIES Nursing Triage Note: ARRIVED VIA AMB TO ROOM 10 WITH COMPLAINTS OF BILAT ARM AND LEG NUMBNESS/TINGLING STARTING LAST NIGHT. Nursing Sepsis Screen: No Definite Risk Source of Information: Patient Exam Limitations: No Limitations History of Present Illness Date Seen by Provider: Nov 17, 2020 Time Seen by Provider: 17:12 Initial Comments This is a well-appearing 40-year-old female presents to the ER with complaints of bilateral upper and bilateral lower extremity numbness and tingling. Allergies and Home Medications Allergies Coded Allergies: ketorolac tromethamine (Verified Allergy, Mild, 05/16/12) Iodinated Contrast- Oral and IV Dye (Unverified Allergy, Unknown, 04/24/15) butorphanol (Unverified Allergy, Unknown, LOST SIGHT, 04/24/15) codeine (Verified Allergy, Unknown, 09/12/05) folic acid (Verified Allergy, Unknown, 07/11/06) hydrocodone (Verified Allergy, Unknown, 09/06/18) iron (Verified Allergy, Unknown, 07/11/06) latex (Verified Allergy, Unknown, 07/11/06) morphine (Verified Allergy, Unknown, 08/07/16) oxycodone (Verified Allergy, Unknown, 09/06/18) penicillin G (Verified Allergy, Unknown, 07/11/06) tramadol (Verified Allergy, Unknown, 09/12/05) Home Medications Albuterol Sulfate 1 Puff Puff, 2 PUFF INH Q4H, (Reported) 1 PUFF = 90 MCG Promethazine HCl 25 Mg Tablet, 25 MG PO Q6H PRN for NAUSEA/VOMITING Prescribed by: WHIT GERMAIN on 02/17/19113 Sucralfate 1 Gm Tablet, 1 GM PO QIDACHS Prescribed by: WHIT GERMAIN on 02/17/19113 Tapentadol HCl 50 Mg Tablet, 50 MG PO Q6H PRN for PAIN-SEVERE Prescribed by: NISH AVENDAÑO on 09/06/182047 Past Crjnsnj-Nupkcx-Qkhqch Hx Patient Social History Alcohol Use: Denies Use Number of Drinks Today: HH Alcohol Beverage of Choice: Wine Smoking Status: Current Everyday Smoker Type Used: Cigarettes 2nd Hand Smoke Exposure: No Recent Infectious Disease Expo: No Immunizations Up To Date Tetanus Booster (TDap): Unknown PED Vaccines UTD: Yes Date of Influenza Vaccine: Aug 03, 2018 Seasonal Allergies Seasonal Allergies: Yes Past Medical History Surgeries: Yes (wisdom teeth, laporotomy) Appendectomy, Eye Surgery, Gallbladder, Hysterectomy, Oophorectomy Respiratory: Yes Asthma Currently Using CPAP: No Currently Using BIPAP: No Cardiac: No Neurological: Yes Headaches /Migraines Reproductive Disorders: Yes (MENORRHAGIA, CERVICAL DYSPLASIA) 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, 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 Sexually Transmitted Disease: Yes (+ TRICHOMONAS ON UA 08/03/18) HIV/AIDS: No Genitourinary: Yes UTI-Chronic Gastrointestinal: Yes Gall Bladder Disease Musculoskeletal: No Endocrine: No HEENT: No (WEARS GLASSES, SEVERAL BROKEN TEETH) Cancer: No Psychosocial: No Integumentary: No Blood Disorders: No Family Medical History Asthma SON SON FH: cancer AUNT UNCLE No Pertinent Family Hx Physical Exam Vital Signs Vital Signs - First Documented 11/17/20 16:50 Temp 36.5 Pulse 88 Resp 16 B/P (MAP) 111/89 (96) Pulse Ox 99 O2 Delivery Room Air Capillary Refill : Less Than 3 Seconds Height, Weight, BMI Height: 5'3.00" Weight: 185lbs. 0.0oz. [id number]; 34.00 BMI Method:Stated Progress/Results/Core Measures Suspected Sepsis Recent Fever Within 48 Hours: No Infection Criteria Present: None New/Unexplained Altered Menta: No Sepsis Screen: No Definite Risk SIRS Temperature: Pulse: 88 Respiratory Rate: 16 Laboratory Tests 11/17/20 17:40: White Blood Count 9.3 Blood Pressure 111 /89 Mean: 96 Laboratory Tests 11/17/20 17:40: Creatinine 0.75, Platelet Count 260, Total Bilirubin 0.4 Results/Orders Lab Results Laboratory Tests Test 11/17/20 17:40 11/17/20 18:38 Range/Units White Blood Count 9.3 4.3-11.0 10^3/uL Red Blood Count 4.25 3.80-5.11 10^6/uL Hemoglobin 13.9 11.5-16.0 g/dL Hematocrit 40 35-52 % Mean Corpuscular Volume 95 80-99 fL Mean Corpuscular Hemoglobin 33 25-34 pg Mean Corpuscular Hemoglobin Concent 35 32-36 g/dL Red Cell Distribution Width 12.5 10.0-14.5 % Platelet Count 260 130-400 10^3/uL Mean Platelet Volume 10.6 9.0-12.2 fL Immature Granulocyte % (Auto) 0 % Neutrophils (%) (Auto) 54 42-75 % Lymphocytes (%) (Auto) 36 12-44 % Monocytes (%) (Auto) 6 0-12 % Eosinophils (%) (Auto) 3 0-10 % Basophils (%) (Auto) 1 0-10 % Neutrophils # (Auto) 5.0 1.8-7.8 10^3/uL Lymphocytes # (Auto) 3.3 1.0-4.0 10^3/uL Monocytes # (Auto) 0.6 0.0-1.0 10^3/uL Eosinophils # (Auto) 0.3 0.0-0.3 10^3/uL Basophils # (Auto) 0.1 0.0-0.1 10^3/uL Immature Granulocyte # (Auto) 0.0 0.0-0.1 10^3/uL Sodium Level 142 135-145 MMOL/L Potassium Level 3.7 3.6-5.0 MMOL/L Chloride Level 106 98-107 MMOL/L Carbon Dioxide Level 26 21-32 MMOL/L Anion Gap 10 5-14 MMOL/L Blood Urea Nitrogen 8 7-18 MG/DL Creatinine 0.75 0.60-1.30 MG/DL Estimat Glomerular Filtration Rate > 60 BUN/Creatinine Ratio 11 Glucose Level 79 70-105 MG/DL Calcium Level 9.3 8.5-10.1 MG/DL Corrected Calcium 9.1 8.5-10.1 MG/DL Magnesium Level 2.0 1.6-2.4 MG/DL Total Bilirubin 0.4 0.1-1.0 MG/DL Aspartate Amino Transf (AST/SGOT) 19 5-34 U/L Alanine Aminotransferase (ALT/SGPT) 22 0-55 U/L Alkaline Phosphatase 68 40-136 U/L Total Protein 6.9 6.4-8.2 GM/DL Albumin 4.3 3.2-4.5 GM/DL Thyroid Stimulating Hormone (TSH) 2.47 0.35-4.94 UIU/ML My Orders Orders - RICKEY SARABIA SHAKE TABLE OPERATOR Cbc With Automated Diff (11/17/20 17:14) Comprehensive Metabolic Panel (11/17/20 17:14) Magnesium (11/17/20 17:14) Vitamin B 12 (11/17/20 17:14) Thyroid Stimulating Hormone (11/17/20 17:15) Ct Head/Cervical Spine Wo (11/17/20 17:47) Ua Culture If Indicated (11/17/20 18:30) Drug Screen Stat (Urine) (11/17/20 18:30) Vital Signs/I&O 11/17/20 16:50 Temp 36.5 Pulse 88 Resp 16 B/P (MAP) 111/89 (96) Pulse Ox 99 O2 Delivery Room Air Capillary Refill : Less Than 3 Seconds Blood Pressure Mean: 96 Departure Impression Primary Impression: Numbness and tingling of both upper extremities Additional Impression: Numbness and tingling of both lower extremities Disposition: 01 HOME, SELF-CARE Condition: Stable Departure-Patient Inst. Decision time for Depature: 18:56 Referrals: HEVER DOHERTY MD (PCP/Family) Primary Care Physician Patient Instructions: Peripheral Neuropathy (DC) Add. Discharge Instructions: Plan: 1. Take steroids with food daily as directed. 2. Keep follow up with Dr. Doherty as previously scheduled. 3. Return to ER if you develop any new, worsening symptoms such as loss of balance, vision changes, severe headache or concerning symptoms. All discharge instructions reviewed with patient and/or family. Voiced understanding. Scripts Prednisone (Prednisone) 20 Mg Tab 40 MG PO DAILY for 4 Days, #8 TAB 0 Refills Take with food Prov: RICKEY SARABIA APRN 11/17/20 RICKEY SARABIA SHAKE TABLE OPERATOR Nov 17, 2020 17:13
[2020-11-17 17:50] LABS: BASOPHILS # (AUTO) 0.1 10^3/uL (0.0-0.1); BASOPHILS % (AUTO) 1 % (0-10); EOSINOPHILS # (AUTO) 0.3 10^3/uL (0.0-0.3); EOSINOPHILS % (AUTO) 3 % (0-10); HEMATOCRIT 40 % (35-52); HEMOGLOBIN 13.9 g/dL (11.5-16.0); LYMPHOCYTES # (AUTO) 3.3 10^3/uL (1.0-4.0); LYMPHOCYTES % (AUTO) 36 % (12-44); MEAN CORPUSCULAR HEMOGLOBIN 33 pg (25-34); MEAN CORPUSCULAR HGB CONC 35 g/dL (32-36); MEAN CORPUSCULAR VOLUME 95 fL (80-99); MEAN PLATELET VOLUME 10.6 fL (9.0-12.2); MONOCYTES # (AUTO) 0.6 10^3/uL (0.0-1.0); MONOCYTES % (AUTO) 6 % (0-12); NEUTROPHILS % (AUTO) 54 % (42-75); PLATELET COUNT 260 10^3/uL (130-400); WHITE BLOOD COUNT 9.3 10^3/uL (4.3-11.0)
[2020-11-17 18:00] LABS: ALBUMIN 4.3 GM/DL (3.2-4.5); CHLORIDE 106 MMOL/L (98-107); POTASSIUM 3.7 MMOL/L (3.6-5.0); SODIUM 142 MMOL/L (135-145)
[2020-11-17 18:01] LABS: CALCIUM 9.3 MG/DL (8.5-10.1)
[2020-11-17 18:02] LABS: GLUCOSE 79 MG/DL (70-105); TOTAL PROTEIN 6.9 GM/DL (6.4-8.2)
[2020-11-17 18:03] LABS: CARBON DIOXIDE 26 MMOL/L (21-32)
[2020-11-17 18:04] LABS: BILIRUBIN,TOTAL 0.4 MG/DL (0.1-1.0)
[2020-11-17 18:06] LABS: ALKALINE PHOSPHATASE 68 U/L (40-136); CREATININE SERUM 0.75 MG/DL (0.60-1.30); GFR ESTIMATED > 60
[2020-11-17 18:07] LABS: BUN/CREATININE RATIO 11
[2020-11-17 18:09] LABS: ALANINE AMINOTRANSFERASE 22 U/L (0-55)
--- NOTE | 2020-11-17 18:44 | Diagnostic Imaging Report ---
PROCEDURE: CT head and CT cervical spine without contrast. TECHNIQUE: Multiple contiguous axial images were obtained through the brain and cervical spine without the use of intravenous contrast. Sagittal and coronal reformations through the cervical spine were then performed. Auto Exposure Controls were utilized during the CT exam to meet ALARA standards for radiation dose reduction. INDICATION: 40-year-old female with severe headache with bilateral lower extremity and upper extremity numbness and tingling. COMPARISONS: 08/04/2018. CT head without contrast: FINDINGS: Midline structures are not displaced. Lateral, third and fourth ventricles are normal in size, shape and anatomic position. There is no mass, mass effect, hydrocephalus or hemorrhage. Joshua-white differentiation is normal. There is no sulcal effacement. There are no abnormal extra-axial fluid collections or hemorrhage. Basilar cisterns appear normal. Sinuses, orbits and mastoid air cells are normal. Bone windows no show no calvarial changes. IMPRESSION: Unremarkable nonenhanced CT brain. CT cervical spine with reconstructions: FINDINGS: Cervical vertebral bodies appear well aligned, and vertebral body heights appear well-maintained. There is slight reversal of the cervical lordosis which may be due to position versus spasm. There is otherwise no evidence of acute fracture or acute subluxation seen. The parapharyngeal and paraspinous soft tissues are normal. Prevertebral soft tissue as well as the predental space and the relationship with the dens of the lateral mass of C1 is normal. Lung apices are clear. IMPRESSION: A slight reversal of the cervical lordosis which may be due to position versus spasm. No evidence of acute fracture or acute subluxation seen. Dictated by: Dictated on workstation # [id number]
[2020-11-17 18:48] LABS: BILIRUBIN,URINE NEGATIVE (NEGATIVE); CLARITY,URINE CLEAR; COLOR,URINE YELLOW; GLUCOSE, URINE (UA) NEGATIVE (NEGATIVE); KETONES,URINE NEGATIVE (NEGATIVE); LEUKOCYTE ESTERASE ,URINE NEGATIVE (NEGATIVE); NITRITE,URINE NEGATIVE (NEGATIVE); PROTEIN,URINE NEGATIVE (NEGATIVE)
[2020-11-17 18:55] LABS: BACTERIA,URINE NEGATIVE /HPF
[2020-11-17] MEDS ORDERED: PRD20T PO (18:59)
[2020-11-17] MEDS ORDERED: predniSONE 20 MG TAB PO ONE (19:00)
[2020-11-17 19:04] LABS: AMPHETAMINE SCREEN, URINE NEGATIVE (NEGATIVE); BARBITURATE SCREEN URINE NEGATIVE (NEGATIVE); BENZODIAZEPINES SCREEN URINE NEGATIVE (NEGATIVE); CANNABINOID SCREEN, URINE NEGATIVE (NEGATIVE); COCAINE SCREEN URINE NEGATIVE (NEGATIVE); METHADONE STAT NEGATIVE (NEGATIVE); METHAMPHETAMINE SCREEN URINE S NEGATIVE (NEGATIVE); OPIATE SCREEN URINE NEGATIVE (NEGATIVE); OXYCODONE STAT NEGATIVE (NEGATIVE); PROPOXYPHENE STAT NEGATIVE (NEGATIVE); TRICYCLIC ANTIDEPRESSANTS SCRE NEGATIVE (NEGATIVE)
[2020-11-17 19:13] VITALS: BP 111/74
== END 2020-11-17 19:15 | disposition home or self-care (01) ==
LOC: EDUNIT# 16:43 → ER 16:44
DX: R20.0 Anesthesia of skin (principal); J45.909 Unspecified asthma, uncomplicated; F17.210 Nicotine dependence, cigarettes, uncomplicated
CPT/HCPCS: 36415; 70450; 72125; 80053; 80306; 81000; 82607; 83735; 84443; 85025

== ENCOUNTER → 2020-11-27 | Outpatient (CLI) | payer MEDICAID ==
[~2020-11-27] MED LIST changes: +PRD20T PO
[2020-11-27 11:12] LABS: ALBUMIN 3.9 GM/DL (3.2-4.5)
== END ==
LOC: LAB 10:07
PROVIDERS: ATTEND Nurse Practitioner Family
DX: L65.0 Telogen effluvium (principal); E55.9 Vitamin D deficiency, unspecified; R53.83 Other fatigue
CPT/HCPCS: 36415; 82040; 82306; 82627; 82728; 84155; 84207; 84270; 84402; 84425; 84630; 86038

== ENCOUNTER → 2020-12-01 | Outpatient (CLI) | payer MEDICAID ==
[~2020-12-01] MED LIST changes: +GADOBUTROL 10 MMOL/10 ML (GADAVIST) VIAL IV ONE
--- NOTE | 2020-12-01 15:13 | Diagnostic Imaging Report ---
PROCEDURE: MR imaging of the brain with and without contrast. TECHNIQUE: Multiplanar, multisequence MR imaging of the brain was performed with and without contrast. INDICATION: Numbness and tingling in the lower extremities. COMPARISON: Comparison is made with prior MRI of the brain from 10/24/2009. FINDINGS: The ventricles and sulci are within normal limits. No diffusion restriction is seen. The normal expected flow voids within the carotid siphons are seen. No periventricular or subcortical white matter signal abnormalities are seen. The corpus callosum and brainstem are unremarkable. Sella and parasellar structures are unremarkable. No abnormal enhancement is identified following contrast administration. There is no evidence of acute intra-axial or extra-axial hemorrhage. IMPRESSION: Unremarkable pre and post contrast MRI of the brain. Dictated by: Dictated on workstation # [id number]
--- NOTE | 2020-12-01 17:36 | Diagnostic Imaging Report ---
PROCEDURE: MR imaging cervical spine with and without contrast. TECHNIQUE: Multiplanar and multisequence MRI of the cervical spine was performed with and without contrast. INDICATION: Numbness and tingling in the lower extremities. No prior studies are available for comparison. Curvature and alignment of the cervical spine is normal. Marrow signal intensity is unremarkable. There is fairly normal height and signal intensity of the cervical intervertebral discs. No focal disc protrusion is seen. The cervical cord demonstrates normal homogeneous signal intensity and normal morphology. No abnormal cervical cord signal is seen. There is no area to suggest demyelination. No abnormal enhancement following contrast administration is identified. Craniocervical junction is unremarkable. IMPRESSION: Unremarkable MRI of the cervical spine with and without IV contrast. There is no central canal or neural foraminal narrowing. No findings to suggest demyelination is identified. Dictated by: Dictated on workstation # [id number]
== END ==
LOC: RAD 13:15
PROVIDERS: ATTEND Family Medicine
DX: M62.81 Muscle weakness (generalized) (principal); R20.0 Anesthesia of skin
CPT/HCPCS: 70553; 72156

== ENCOUNTER 2020-12-28 17:30 | Emergency (ER) | payer MEDICAID ==
[~2020-12-28] VITALS: Ht 160 cm; Wt 88.9 kg
[~2020-12-28 17:30] MED LIST changes: -GADOBUTROL 10 MMOL/10 ML (GADAVIST) VIAL IV ONE; -SULF1TAB35 PO; +SULF1TAB38 PO
--- NOTE | 2020-12-28 18:19 | ED Neurological Problem ---
General Chief Complaint: Neurological Problems Stated Complaint: EXTREMITY NUMBNESS AND TINGLING Source: patient, old records History of Present Illness Date Seen by Provider: Dec 28, 2020 Time Seen by Provider: 17:55 Initial Comments PT ARRIVES VIA POV FROM HOME C/O NUMBNESS AND TINGLING OF BOTH ARMS AND BOTH LEGS FOR THE LAST 8 WEEKS STATES IT IS HER ENTIRE ARMS AND ENTIRE LEGS BILATERALLY--BOTH SIDES ARE EQUAL PT STATES HER KNEES HAVE BEEN WEAK SINCE LAST NIGHT HAS NOT FALLEN NO CHANGE IN BOWEL OR BLADDER FUNCTION HAS HAD ONGOING BLURRY VISION, BUT HAS NOT SEEN AN EYE DR IN A LONG TIME ( PT'S GLASSES ARE EXTREMELY FILTHY--DOES NOT APPEAR THAT THEY HAVE EVER BEEN CLEANED) Allergies and Home Medications Allergies Coded Allergies: ketorolac tromethamine (Verified Allergy, Mild, 05/16/12) Iodinated Contrast Media (Unverified Allergy, Unknown, 04/24/15) butorphanol (Unverified Allergy, Unknown, LOST SIGHT, 04/24/15) codeine (Verified Allergy, Unknown, 09/12/05) folic acid (Verified Allergy, Unknown, 07/11/06) hydrocodone (Verified Allergy, Unknown, 09/06/18) iron (Verified Allergy, Unknown, 07/11/06) latex (Verified Allergy, Unknown, 07/11/06) morphine (Verified Allergy, Unknown, 08/07/16) oxycodone (Verified Allergy, Unknown, 09/06/18) penicillin G (Verified Allergy, Unknown, 07/11/06) tramadol (Verified Allergy, Unknown, 09/12/05) Home Medications Albuterol Sulfate 1 Puff Puff, 2 PUFF INH Q4H, (Reported) 1 PUFF = 90 MCG Prednisone 20 Mg Tab, 40 MG PO DAILY Take with food Prescribed by: RICKEY SARABIA on 11/17/20 185 Promethazine HCl 25 Mg Tablet, 25 MG PO Q6H PRN for NAUSEA/VOMITING Prescribed by: WHIT GERMAIN on 02/17/19113 Sucralfate 1 Gm Tablet, 1 GM PO QIDACHS Prescribed by: WHIT GERMAIN on 02/17/19113 Tapentadol HCl 50 Mg Tablet, 50 MG PO Q6H PRN for PAIN-SEVERE Prescribed by: NISH AVENDAÑO on 09/06/182047 Past Wxeendn-Eefnhn-Ynblxx Hx Immunizations Up To Date Tetanus Booster (TDap): Unknown PED Vaccines UTD: Yes Seasonal Allergies Seasonal Allergies: Yes Past Medical History Surgeries: Yes (wisdom teeth, laporotomy) Appendectomy, Eye Surgery, Gallbladder, Hysterectomy, Oophorectomy Respiratory: Yes Asthma Currently Using CPAP: No Currently Using BIPAP: No Cardiac: No Neurological: Yes Headaches /Migraines Reproductive Disorders: Yes (MENORRHAGIA, CERVICAL DYSPLASIA) [employer]EL[employer] History: Hysterectomy, Menopausal Sexually Transmitted Disease: Yes (+ TRICHOMONAS ON UA 08/03/18) HIV/AIDS: No Genitourinary: Yes UTI-Chronic Gastrointestinal: Yes Gall Bladder Disease Musculoskeletal: No Endocrine: No HEENT: No (WEARS GLASSES, SEVERAL BROKEN TEETH) Cancer: No Psychosocial: No Integumentary: No Blood Disorders: No Family Medical History Asthma SON SON FH: cancer AUNT UNCLE No Pertinent Family Hx Physical Exam Vital Signs Vital Signs - First Documented 12/28/20 19:00 Temp 36.7 Pulse 23 Resp 23 B/P (MAP) 87/71 (76) Pulse Ox 99 O2 Delivery Room Air Capillary Refill : Height, Weight, BMI Height: 5'3.00" Weight: 185lbs. 0.0oz. 83.870403db; 34.00 BMI Method:Stated Focused Exam Lactate Level 12/28/20 18:20: Lactic Acid Level 1.68 Lactic Acid Level Laboratory Tests Test 12/28/20 18:20 Lactic Acid Level 1.68 MMOL/L (0.50-2.00) Progress/Results/Core Measures Results/Orders Lab Results Laboratory Tests Test 12/28/20 18:10 12/28/20 18:20 12/28/20 18:25 12/28/20 18:50 Range/Units White Blood Count 10.4 4.3-11.0 10^3/uL Red Blood Count 4.82 3.80-5.11 10^6/uL Hemoglobin 15.5 11.5-16.0 g/dL Hematocrit 46 35-52 % Mean Corpuscular Volume 95 80-99 fL Mean Corpuscular Hemoglobin 32 25-34 pg Mean Corpuscular Hemoglobin Concent 34 32-36 g/dL Red Cell Distribution Width 12.1 10.0-14.5 % Platelet Count 269 130-400 10^3/uL Mean Platelet Volume 11.0 9.0-12.2 fL Immature Granulocyte % (Auto) 1 % Neutrophils (%) (Auto) 57 42-75 % Lymphocytes (%) (Auto) 33 12-44 % Monocytes (%) (Auto) 7 0-12 % Eosinophils (%) (Auto) 2 0-10 % Basophils (%) (Auto) 1 0-10 % Neutrophils # (Auto) 6.0 1.8-7.8 10^3/uL Lymphocytes # (Auto) 3.4 1.0-4.0 10^3/uL Monocytes # (Auto) 0.7 0.0-1.0 10^3/uL Eosinophils # (Auto) 0.2 0.0-0.3 10^3/uL Basophils # (Auto) 0.1 0.0-0.1 10^3/uL Immature Granulocyte # (Auto) 0.1 0.0-0.1 10^3/uL Erythrocyte Sedimentation Rate 13 0-20 MM/HR Sodium Level 141 135-145 MMOL/L Potassium Level 4.0 3.6-5.0 MMOL/L Chloride Level 106 98-107 MMOL/L Carbon Dioxide Level 23 21-32 MMOL/L Anion Gap 12 5-14 MMOL/L Blood Urea Nitrogen 4 L 7-18 MG/DL Creatinine 0.95 0.60-1.30 MG/DL Estimat Glomerular Filtration Rate 65 BUN/Creatinine Ratio 4 Glucose Level 80 70-105 MG/DL Calcium Level 9.7 8.5-10.1 MG/DL Corrected Calcium 9.3 8.5-10.1 MG/DL Magnesium Level 2.1 1.6-2.4 MG/DL Total Bilirubin 0.4 0.1-1.0 MG/DL Aspartate Amino Transf (AST/SGOT) 28 5-34 U/L Alanine Aminotransferase (ALT/SGPT) 32 0-55 U/L Alkaline Phosphatase 73 40-136 U/L Total Creatine Kinase 62 29-168 U/L Creatine Kinase MB 0.4 <6.6 NG/ML Myoglobin 30.0 10.0-92.0 NG/ML C-Reactive Protein High Sensitivity 0.27 0.00-0.50 MG/DL Total Protein 7.9 6.4-8.2 GM/DL Albumin 4.5 3.2-4.5 GM/DL Procalcitonin 0.02 <0.10 NG/ML TSH [place] Testing 2.72 0.35-4.94 UIU/ML Salicylates Level < 5.0 L 5.0-20.0 MG/DL Acetaminophen Level < 10 L 10-30 UG/ML Serum Alcohol < 10 <10 MG/DL SARS-CoV-2 RNA (RT-PCR) Not Detected Not Detecte Lactic Acid Level 1.68 0.50-2.00 MMOL/L Urine Color YELLOW Urine Clarity CLEAR Urine pH 6.0 5-9 Urine Specific [place] <=1.005 1.016-1.022 Urine Protein NEGATIVE NEGATIVE Urine Glucose (UA) NEGATIVE NEGATIVE Urine Ketones NEGATIVE NEGATIVE Urine Nitrite NEGATIVE NEGATIVE Urine Bilirubin NEGATIVE NEGATIVE Urine Urobilinogen 0.2 < = 1.0 MG/DL Urine Leukocyte Esterase NEGATIVE NEGATIVE Urine RBC (Auto) NEGATIVE NEGATIVE Urine RBC NONE /HPF Urine WBC NONE /HPF Urine Squamous Epithelial Cells 2-5 /HPF Urine Crystals NONE /LPF Urine Bacteria TRACE /HPF Urine Casts NONE /LPF Urine Mucus NEGATIVE /LPF Urine Culture Indicated NO Urine Opiates Screen NEGATIVE NEGATIVE Urine Oxycodone Screen NEGATIVE NEGATIVE Urine Methadone Screen NEGATIVE NEGATIVE Urine Propoxyphene Screen NEGATIVE NEGATIVE Urine Barbiturates Screen NEGATIVE NEGATIVE Ur Tricyclic Antidepressants Screen NEGATIVE NEGATIVE Urine Phencyclidine Screen NEGATIVE NEGATIVE Urine Amphetamines Screen NEGATIVE NEGATIVE Urine Methamphetamines Screen NEGATIVE NEGATIVE Urine Benzodiazepines Screen NEGATIVE NEGATIVE Urine Cocaine Screen NEGATIVE NEGATIVE Urine Cannabinoids Screen NEGATIVE NEGATIVE My Orders Orders - WENDIE BROWN DO Ed Iv/Invasive Line Start (12/28/20 18:03) Ekg Tracing (12/28/20 18:03) Monitor-Rhythm Ecg Trace Only (12/28/20 18:03) Acetaminophen (12/28/20 18:03) Alcohol (12/28/20 18:03) Cbc With Automated Diff (12/28/20 18:03) Comprehensive Metabolic Panel (12/28/20 18:03) Creatine Kinase (12/28/20 18:03) Creatine Kinase Mb (12/28/20 18:03) Hs C Reactive Protein (12/28/20 18:03) Drug Screen Stat (Urine) (12/28/20 18:03) Lactic Acid Analyzer (12/28/20 18:03) Magnesium (12/28/20 18:03) Salicylate (12/28/20 18:03) Thyroid Analyzer (12/28/20 18:03) Ua Culture If Indicated (12/28/20 18:03) Erythrocyte Sedimentation Rate (12/28/20 18:03) Myoglobin Serum (12/28/20 18:03) Procalcitonin (Pct) (12/28/20 18:03) Covid 19 Inhouse Test (12/28/20 18:03) Vitamin B 12 (12/28/20 18:19) Folic Acid (12/28/20 18:19) Zinc Level (12/28/20 18:19) Thiamine Vitamin B1 Whole Bld (12/28/20 18:19) Tick Panel With Lyme Eia (12/28/20 18:28) Ed Iv/Invasive Line Start (12/28/20 19:52) Lactated Ringers (Lr 1000 Ml Iv Solution (12/28/20 20:00) Ibuprofen Tablet (Motrin Tablet) (12/28/20 19:52) Vitamin D 25-Hydroxy (12/28/20 20:18) Para Thryoid Hormone Intact (12/28/20 20:18) Vital Signs/I&O 12/28/20 19:00 Temp 36.7 Pulse 23 Resp 23 B/P (MAP) 87/71 (76) Pulse Ox 99 O2 Delivery Room Air Departure Impression Primary Impression: Numbness and tingling of both upper extremities Additional Impressions: Numbness and tingling of both lower extremities SUBJECTIVE LOWER EXTREMITY WEAKNESS Disposition: 01 HOME, SELF-CARE Condition: Stable Departure-Patient Inst. Referrals: HEVER DOHERTY MD (PCP/Family) Primary Care Physician Patient Instructions: Generalized Weakness (DC), Paresthesia (DC) Add. Discharge Instructions: FOLLOW UP WITH NEUROLOGY CLINIC THIS WEEK--CALL IN AM TO SCHEDULE APPOINTMENT--[phone]. DR. WOLF OR DR. DAVONTE SAMPSON WITH NEUROMUSCULAR DISORDERS. CASE WAS DISCUSSED WITH DR. RICKETTS WITH NEUROLOGY All discharge instructions reviewed with patient and/or family. Voiced understanding. WENDIE BROWN DO Dec 28, 2020 18:19
[2020-12-28 18:23] LABS: BASOPHILS # (AUTO) 0.1 10^3/uL (0.0-0.1); BASOPHILS % (AUTO) 1 % (0-10); EOSINOPHILS # (AUTO) 0.2 10^3/uL (0.0-0.3); EOSINOPHILS % (AUTO) 2 % (0-10); HEMATOCRIT 46 % (35-52); HEMOGLOBIN 15.5 g/dL (11.5-16.0); LYMPHOCYTES # (AUTO) 3.4 10^3/uL (1.0-4.0); LYMPHOCYTES % (AUTO) 33 % (12-44); MEAN CORPUSCULAR HEMOGLOBIN 32 pg (25-34); MEAN CORPUSCULAR HGB CONC 34 g/dL (32-36); MEAN CORPUSCULAR VOLUME 95 fL (80-99); MONOCYTES # (AUTO) 0.7 10^3/uL (0.0-1.0); MONOCYTES % (AUTO) 7 % (0-12); NEUTROPHILS % (AUTO) 57 % (42-75); PLATELET COUNT 269 10^3/uL (130-400); WHITE BLOOD COUNT 10.4 10^3/uL (4.3-11.0)
[2020-12-28 18:38] LABS: ERYTHROCYTE SEDIMENTATION RATE 13 MM/HR (0-20)
[2020-12-28 18:43] LABS: CHLORIDE 106 MMOL/L (98-107); SODIUM 141 MMOL/L (135-145)
[2020-12-28 18:44] LABS: ALBUMIN 4.5 GM/DL (3.2-4.5)
[2020-12-28 18:44] LABS: BILIRUBIN,URINE NEGATIVE (NEGATIVE); CLARITY,URINE CLEAR; COLOR,URINE YELLOW; GLUCOSE, URINE (UA) NEGATIVE (NEGATIVE); KETONES,URINE NEGATIVE (NEGATIVE); LEUKOCYTE ESTERASE ,URINE NEGATIVE (NEGATIVE); NITRITE,URINE NEGATIVE (NEGATIVE); PROTEIN,URINE NEGATIVE (NEGATIVE)
[2020-12-28 18:45] LABS: CALCIUM 9.7 MG/DL (8.5-10.1)
[2020-12-28 18:46] LABS: GLUCOSE 80 MG/DL (70-105); TOTAL PROTEIN 7.9 GM/DL (6.4-8.2)
[2020-12-28 18:47] LABS: CARBON DIOXIDE 23 MMOL/L (21-32)
[2020-12-28 18:48] LABS: BILIRUBIN,TOTAL 0.4 MG/DL (0.1-1.0)
[2020-12-28 18:50] LABS: ALKALINE PHOSPHATASE 73 U/L (40-136); CREATININE SERUM 0.95 MG/DL (0.60-1.30); GFR ESTIMATED 65
[2020-12-28 18:51] LABS: BACTERIA,URINE TRACE /HPF
[2020-12-28 18:51] LABS: BUN/CREATININE RATIO 4
[2020-12-28 18:52] LABS: SALICYLATE < 5.0 MG/DL (5.0-20.0)
[2020-12-28 18:53] LABS: ALANINE AMINOTRANSFERASE 32 U/L (0-55); MAGNESIUM 2.1 MG/DL (1.6-2.4)
[2020-12-28 18:54] LABS: CREATINE KINASE 62 U/L (29-168)
[2020-12-28 18:55] LABS: AMPHETAMINE SCREEN, URINE NEGATIVE (NEGATIVE); BARBITURATE SCREEN URINE NEGATIVE (NEGATIVE); BENZODIAZEPINES SCREEN URINE NEGATIVE (NEGATIVE); CANNABINOID SCREEN, URINE NEGATIVE (NEGATIVE); COCAINE SCREEN URINE NEGATIVE (NEGATIVE); METHADONE STAT NEGATIVE (NEGATIVE); METHAMPHETAMINE SCREEN URINE S NEGATIVE (NEGATIVE); OPIATE SCREEN URINE NEGATIVE (NEGATIVE); OXYCODONE STAT NEGATIVE (NEGATIVE); PROPOXYPHENE STAT NEGATIVE (NEGATIVE); TRICYCLIC ANTIDEPRESSANTS SCRE NEGATIVE (NEGATIVE)
[2020-12-28 19:02] LABS: CREATINE KINASE MB 0.4 NG/ML (<6.6)
[2020-12-28 19:05] LABS: ACETAMINOPHEN < 10 UG/ML (10-30)
[2020-12-28 19:14] LABS: TSH (THYROID ANALYZER) 2.72 UIU/ML (0.35-4.94)
[2020-12-28] MEDS ORDERED: IBUPROFEN 800 MG (MOTRIN) TAB PO STA (19:52)
[2020-12-28] MEDS ORDERED: LACTATED RINGERS 1,000 ML IV ONE (20:00)
[2020-12-28 21:30] VITALS: BP 154/94
== END 2020-12-28 21:30 | disposition home or self-care (01) ==
LOC: EDUNIT# 17:30 → ER 17:33
DX: R20.0 Anesthesia of skin (principal); R20.2 Paresthesia of skin; M62.81 Muscle weakness (generalized); J45.909 Unspecified asthma, uncomplicated; Z20.822 Contact with and (suspected) exposure to COVID-19; Z79.52 Long term (current) use of systemic steroids
CPT/HCPCS: 36415; 80053; 80306; 80320; 80329; 81000; 82306; 82550; 82553; 82607; 82746; 83605; 83735; 83874; 83970; 84145; 84425; 84443; 84630; 85025; 85652; 86141; 86618; 86666; 86668; 86757; 87636; 93005; 93041

== ENCOUNTER 2021-03-12 16:36 | Emergency (ER) | payer MEDICAID ==
[~2021-03-12] VITALS: Ht 160 cm; Wt 81.6 kg
[2021-03-12] MEDS ORDERED: PROCHLORPERAZINE 10 MG/2ML INJ (COMPAZINE) IV ONE (17:00)
[2021-03-12] MEDS ORDERED: NS IV 1000 ML 1,000 ML IV SCH (17:00)
[2021-03-12] MEDS ORDERED: fentaNYL INJ 100 MCG/2 ML AMP IVP ONE (17:00)
[2021-03-12] MEDS ORDERED: diphenhydrAMINE 50 MG/ML INJ (BENADRYL) IVP ONE (17:00)
--- NOTE | 2021-03-12 17:13 | ED Headache ---
General Chief Complaint: Head/Cervical Problems Stated Complaint: MA Nursing Triage Note: ARRIVED VIA AMB WITHOUT DIFFICULTY. COMPLAINS OF HEADACHE X8 DAYS. WAS PRESCRIBED FLEXERIL AND NAPROXEN WHICH IS NOT HELPING. Source: patient Exam Limitations: no limitations History of Present Illness Date Seen by Provider: Mar 12, 2021 Time Seen by Provider: 17:11 Initial Comments To ER with a headache for 8 days. She feels like her eyes are going to pop out of her head. She has neck stiffness. She saw her primary care and was given naproxen and Flexeril 3 days ago which has not improved her symptoms. No fevers or chills. She states that all of the symptoms began after a B12 injection. History of brain MRI with and without contrast head CT and neurology visit at the [facility]. Timing/Duration: 1 week Severity/Quality: moderate Location: global Prior Headaches/Recent Trauma: occasional headaches Associated Symptoms: No fever/chills; nausea/vomiting, stiff neck Allergies and Home Medications Allergies Coded Allergies: ketorolac tromethamine (Verified Allergy, Mild, 05/16/12) Iodinated Contrast Media (Unverified Allergy, Unknown, 04/24/15) butorphanol (Unverified Allergy, Unknown, LOST SIGHT, 04/24/15) codeine (Verified Allergy, Unknown, 09/12/05) folic acid (Verified Allergy, Unknown, 07/11/06) hydrocodone (Verified Allergy, Unknown, 09/06/18) iron (Verified Allergy, Unknown, 07/11/06) latex (Verified Allergy, Unknown, 07/11/06) morphine (Verified Allergy, Unknown, 08/07/16) oxycodone (Verified Allergy, Unknown, 09/06/18) penicillin G (Verified Allergy, Unknown, 07/11/06) tramadol (Verified Allergy, Unknown, 09/12/05) Patient Home Medication List Home Medication List Reviewed: Yes Albuterol Sulfate (Ventolin Hfa) 1 Puff Puff, 2 PUFF INH Q4H, (Reported) Entered as Reported by: FREDI MCCABE on 09/06/18 1011 Prednisone (Prednisone) 20 Mg Tab, 40 MG PO DAILY Prescribed by: RICKEY SARABIA on 11/17/20 9879 Promethazine HCl (Promethazine Tablet) 25 Mg Tablet, 25 MG PO Q6H PRN for REINIER SEA/VOMITING Prescribed by: WHIT GERMAIN on 02/17/19113 Sucralfate (Carafate) 1 Gm Tablet, 1 GM PO QIDACHS Prescribed by: WHIT GERMAIN on 02/17/19113 Tapentadol HCl (Nucynta) 50 Mg Tablet, 50 MG PO Q6H PRN for PAIN-SEVERE Prescribed by: NISH AVENDAÑO on 09/06/182047 Review of Systems Review of Systems Constitutional: see HPI Eyes: No Symptoms Reported Ears, Nose, Mouth, Throat: no symptoms reported Respiratory: no symptoms reported Cardiovascular: no symptoms reported Genitourinary: no symptoms reported Musculoskeletal: no symptoms reported Skin: no symptoms reported Psychiatric/Neurological: No Symptoms Reported Past Cmwixwc-Empgid-Xhbsdk Hx Patient Social History Smoking Status: Current Everyday Smoker Substance use?: No Alcohol Use?: No Immunizations Up To Date Tetanus Booster (TDap): Unknown PED Vaccines UTD: Yes Seasonal Allergies Seasonal Allergies: Yes Past Medical History Surgery/Hospitalization HX: HYSTERECTOMY/BILATERAL SALPINGO-OOPHORECTOMY LAPAROSCOPY CHOLECYSTECTOMY APPENDECTOMY Surgeries: Yes (wisdom teeth, laporotomy) Abdominal, Appendectomy, Eye Surgery, Gallbladder, Hysterectomy, Oophorectomy Respiratory: Yes Asthma Currently Using CPAP: No Currently Using BIPAP: No Cardiac: No Neurological: Yes Headaches /Migraines Reproductive Disorders: Yes (MENORRHAGIA, CERVICAL DYSPLASIA) 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 History: Hysterectomy, Menopausal Sexually Transmitted Disease: Yes (+ TRICHOMONAS ON UA 08/03/18) HIV/AIDS: No Genitourinary: Yes UTI-Chronic Gastrointestinal: Yes Gall Bladder Disease Musculoskeletal: No Endocrine: No HEENT: No (WEARS GLASSES, SEVERAL BROKEN TEETH) Cancer: No Psychosocial: No Integumentary: No Blood Disorders: No Family Medical History Asthma SON SON FH: cancer AUNT UNCLE No Pertinent Family Hx Physical Exam Vital Signs Vital Signs - First Documented 03/12/21 16:40 Temp 36.3 Pulse 101 Resp 16 B/P (MAP) 125/88 (100) Pulse Ox 97 O2 Delivery Room Air Capillary Refill : Less Than 3 Seconds Height, Weight, BMI Height: 5'3.00" Weight: 185lbs. 0.0oz. 83.090229sm; 31.00 BMI Method:Stated General Appearance: WD/WN, no apparent distress HEENT: PERRL/EOMI, normal ENT inspection Neck: non-tender, full range of motion Respiratory: no respiratory distress, no accessory muscle use Gastrointestinal: normal bowel sounds, non tender Extremities: normal range of motion, non-tender Psychiatric: alert Crainal Nerves: normal hearing, normal speech, PERRL Skin: normal color, warm/dry Progress/Results/Core Measures Results/Orders Lab Results Laboratory Tests Test 03/12/21 17:15 Range/Units White Blood Count 8.7 4.3-11.0 10^3/uL Red Blood Count 4.39 3.80-5.11 10^6/uL Hemoglobin 14.3 11.5-16.0 g/dL Hematocrit 42 35-52 % Mean Corpuscular Volume 95 80-99 fL Mean Corpuscular Hemoglobin 33 25-34 pg Mean Corpuscular Hemoglobin Concent 34 32-36 g/dL Red Cell Distribution Width 12.2 10.0-14.5 % Platelet Count 234 130-400 10^3/uL Mean Platelet Volume 11.5 9.0-12.2 fL Immature Granulocyte % (Auto) 1 % Neutrophils (%) (Auto) 51 42-75 % Lymphocytes (%) (Auto) 39 12-44 % Monocytes (%) (Auto) 6 0-12 % Eosinophils (%) (Auto) 3 0-10 % Basophils (%) (Auto) 1 0-10 % Neutrophils # (Auto) 4.4 1.8-7.8 10^3/uL Lymphocytes # (Auto) 3.4 1.0-4.0 10^3/uL Monocytes # (Auto) 0.5 0.0-1.0 10^3/uL Eosinophils # (Auto) 0.3 0.0-0.3 10^3/uL Basophils # (Auto) 0.1 0.0-0.1 10^3/uL Immature Granulocyte # (Auto) 0.0 0.0-0.1 10^3/uL Erythrocyte Sedimentation Rate 6 0-20 MM/HR Sodium Level 142 135-145 MMOL/L Potassium Level 3.7 3.6-5.0 MMOL/L Chloride Level 108 H 98-107 MMOL/L Carbon Dioxide Level 22 21-32 MMOL/L Anion Gap 12 5-14 MMOL/L Blood Urea Nitrogen 7 7-18 MG/DL Creatinine 0.77 0.60-1.30 MG/DL Estimat Glomerular Filtration Rate 83 BUN/Creatinine Ratio 9 Glucose Level 90 70-105 MG/DL Calcium Level 9.6 8.5-10.1 MG/DL Corrected Calcium 9.4 8.5-10.1 MG/DL Total Bilirubin 0.5 0.1-1.0 MG/DL Aspartate Amino Transf (AST/SGOT) 23 5-34 U/L Alanine Aminotransferase (ALT/SGPT) 36 0-55 U/L Alkaline Phosphatase 60 40-136 U/L Total Protein 6.9 6.4-8.2 GM/DL Albumin 4.2 3.2-4.5 GM/DL Serum Test, Qualitative NEGATIVE NEGATIVE My Orders Orders - NISH AVENDAÑO APRN Ct Head Wo (03/12/21 16:53) Cbc With Automated Diff (03/12/21 16:53) Comprehensive Metabolic Panel (03/12/21 16:53) Erythrocyte Sedimentation Rate (03/12/21 16:53) Ed Iv/Invasive Line Start (03/12/21 16:53) Hcg,Qualitative Serum (03/12/21 16:53) Prochlorperazine Injection (Compazine In (03/12/21 17:00) Diphenhydramine Injection (Benadryl Inje (03/12/21 17:00) Ns Iv 1000 Ml (Sodium Chloride 0.9%) (03/12/21 17:00) Fentanyl Inj (Sublimaze Injection) (03/12/21 17:00) Lidocaine 1% Inj 20 Ml (Xylocaine 1% Inj (03/12/21 18:30) Medications Given in ED Current Medications Medications Dose Ordered Sig/Berto Route Start Time Stop Time Status Last Admin Dose Admin Diphenhydramine HCl 25 mg ONCE ONCE IVP 03/12/21 17:00 03/12/21 17:01 DC 03/12/21 17:16 25 MG Fentanyl Citrate 50 mcg ONCE ONCE IVP 03/12/21 17:00 03/12/21 17:01 DC 03/12/21 17:14 50 MCG Lidocaine HCl 20 ml ONCE ONCE INJ 03/12/21 18:30 03/12/21 18:31 DC 03/12/21 18:20 20 ML Prochlorperazine Edisylate 5 mg ONCE ONCE IV 03/12/21 17:00 03/12/21 17:01 DC 03/12/21 17:17 5 MG Vital Signs/I&O 03/12/21 16:40 Temp 36.3 Pulse 101 Resp 16 B/P (MAP) 125/88 (100) Pulse Ox 97 O2 Delivery Room Air Blood Pressure Mean: 100 Departure Communication (Admissions) 182-headache is completely unaffected by fentanyl Compazine Benadryl. We will try a cervical paraspinous muscle block using 1.5 mL of lidocaine 1 cm lateral to the C7 spinous process bilaterally. She asks if she might have too much CSF. I discussed with her possible diagnostic lumbar puncture for opening pressure to help determine that. She does report blurred vision. Talk to her about the risks of causing a post dural puncture headache. 1833-after the cervical paraspinous muscle injection of lidocaine her pain went from "50 million down to 10". I would consider this a success. As such we will discharge her to home. If she needs further testing such as diagnostic lumbar puncture she can be referred to outpatient surgery for anesthesia services by primary care. Impression Primary Impression: Headache Disposition: HOME, SELF-CARE Condition: Stable Departure-Patient Inst. Decision time for Depature: 18:35 Referrals: HEVER DOHERTY MD (PCP) Primary Care Physician Patient Instructions: Headache, Adult (DC) Add. Discharge Instructions: 1. Follow-up with Dr. Doherty later this week. If he feels that pseudotumor cerebri (or excessive cerebrospinal fluid) is a possibility then he can discuss with you a lumbar puncture outpatient to help decide this. All discharge instructions reviewed with patient and/or family. Voiced understanding. Copy Copies To 1: HEVER DOHERTY MD, PETER J APRN Mar 12, 2021 17:13
[2021-03-12 17:30] LABS: BASOPHILS # (AUTO) 0.1 10^3/uL (0.0-0.1); BASOPHILS % (AUTO) 1 % (0-10); EOSINOPHILS # (AUTO) 0.3 10^3/uL (0.0-0.3); EOSINOPHILS % (AUTO) 3 % (0-10); HEMATOCRIT 42 % (35-52); HEMOGLOBIN 14.3 g/dL (11.5-16.0); LYMPHOCYTES # (AUTO) 3.4 10^3/uL (1.0-4.0); LYMPHOCYTES % (AUTO) 39 % (12-44); MEAN CORPUSCULAR HEMOGLOBIN 33 pg (25-34); MEAN CORPUSCULAR HGB CONC 34 g/dL (32-36); MEAN CORPUSCULAR VOLUME 95 fL (80-99); MEAN PLATELET VOLUME 11.5 fL (9.0-12.2); MONOCYTES # (AUTO) 0.5 10^3/uL (0.0-1.0); MONOCYTES % (AUTO) 6 % (0-12); NEUTROPHILS # (AUTO) 4.4 10^3/uL (1.8-7.8); NEUTROPHILS % (AUTO) 51 % (42-75); PLATELET COUNT 234 10^3/uL (130-400); WHITE BLOOD COUNT 8.7 10^3/uL (4.3-11.0)
[2021-03-12 17:40] LABS: ALBUMIN 4.2 GM/DL (3.2-4.5)
[2021-03-12 17:41] LABS: POTASSIUM 3.7 MMOL/L (3.6-5.0)
[2021-03-12 17:42] LABS: CALCIUM 9.6 MG/DL (8.5-10.1)
[2021-03-12 17:43] LABS: TOTAL PROTEIN 6.9 GM/DL (6.4-8.2)
[2021-03-12 17:45] LABS: BILIRUBIN,TOTAL 0.5 MG/DL (0.1-1.0)
[2021-03-12 17:47] LABS: CREATININE SERUM 0.77 MG/DL (0.60-1.30)
--- NOTE | 2021-03-12 17:59 | Diagnostic Imaging Report ---
PROCEDURE: CT head without contrast. TECHNIQUE: Multiple contiguous axial images were obtained through the brain without the use of intravenous contrast. Auto Exposure Controls were utilized during the CT exam to meet ALARA standards for radiation dose reduction. INDICATION: Headache. COMPARISON: 11/17/2020. FINDINGS: Ventricles and sulci are within normal limits for size. There is no intracranial hemorrhage identified. There is no abnormal mass effect or shift of midline structures. IMPRESSION: Unremarkable CT of the head. Dictated by: Dictated on workstation # [id number]
[2021-03-12 18:02] LABS: ERYTHROCYTE SEDIMENTATION RATE 6 MM/HR (0-20)
[2021-03-12] MEDS ORDERED: LIDOCAINE 1% INJ 20 ML 20 ML VIAL INJ ONE (18:30)
[2021-03-12 18:53] VITALS: BP 105/79
== END 2021-03-12 18:53 | disposition home or self-care (01) ==
LOC: EDUNIT# 16:36 → ER 16:37
DX: R51.9 Headache, unspecified (principal); J45.909 Unspecified asthma, uncomplicated; F17.290 Nicotine dependence, other tobacco product, uncomplicated
CPT/HCPCS: 36415; 70450; 80053; 84703; 85025; 85652

== ENCOUNTER 2021-03-24 16:43 | Emergency (ER) | payer MEDICAID ==
[~2021-03-24] VITALS: Ht 160 cm; Wt 86.2 kg
[2021-03-24] MEDS ORDERED: PROMETHAZINE INJ 25 MG/ML (PHENERGAN) AMP IVP ONE (17:45)
[2021-03-24] MEDS ORDERED: LACTATED RINGERS 1,000 ML IV ONE (17:45)
[2021-03-24 17:46] LABS: BASOPHILS # (AUTO) 0.1 10^3/uL (0.0-0.1); BASOPHILS % (AUTO) 1 % (0-10); EOSINOPHILS # (AUTO) 0.3 10^3/uL (0.0-0.3); EOSINOPHILS % (AUTO) 3 % (0-10); HEMATOCRIT 42 % (35-52); HEMOGLOBIN 14.3 g/dL (11.5-16.0); LYMPHOCYTES # (AUTO) 3.9 10^3/uL (1.0-4.0); LYMPHOCYTES % (AUTO) 36 % (12-44); MEAN CORPUSCULAR HEMOGLOBIN 32 pg (25-34); MEAN CORPUSCULAR HGB CONC 34 g/dL (32-36); MEAN CORPUSCULAR VOLUME 95 fL (80-99); MEAN PLATELET VOLUME 11.4 fL (9.0-12.2); MONOCYTES # (AUTO) 0.7 10^3/uL (0.0-1.0); MONOCYTES % (AUTO) 6 % (0-12); NEUTROPHILS # (AUTO) 5.8 10^3/uL (1.8-7.8); NEUTROPHILS % (AUTO) 54 % (42-75); PLATELET COUNT 270 10^3/uL (130-400); WHITE BLOOD COUNT 10.8 10^3/uL (4.3-11.0)
[2021-03-24 17:50] LABS: ALBUMIN 4.3 GM/DL (3.2-4.5); POTASSIUM 3.3 MMOL/L (3.6-5.0)
[2021-03-24 17:51] LABS: CALCIUM 9.8 MG/DL (8.5-10.1)
[2021-03-24 17:53] LABS: BILIRUBIN,URINE NEGATIVE (NEGATIVE); CLARITY,URINE CLEAR; COLOR,URINE YELLOW; GLUCOSE, URINE (UA) NEGATIVE (NEGATIVE); KETONES,URINE NEGATIVE (NEGATIVE); LEUKOCYTE ESTERASE ,URINE TRACE (NEGATIVE); NITRITE,URINE NEGATIVE (NEGATIVE); PROTEIN,URINE NEGATIVE (NEGATIVE)
[2021-03-24 17:54] LABS: BILIRUBIN,TOTAL 0.4 MG/DL (0.1-1.0)
[2021-03-24 17:56] LABS: CREATININE SERUM 0.8 MG/DL (0.60-1.30)
[2021-03-24 17:59] LABS: MAGNESIUM 1.8 MG/DL (1.6-2.4)
[2021-03-24 18:07] LABS: AMORPHOUS SEDIMENT,UR RARE AMOR URATES /LPF; BACTERIA,URINE TRACE /HPF; WBC,URINE 0-2 /HPF
--- NOTE | 2021-03-24 20:08 | ED Neurological Problem ---
General Chief Complaint: Dizziness/Syncope Stated Complaint: LIGHTHEADED/DIZZINESS/NAUSEA Nursing Triage Note: PT TO RM 9 VIA WC W REPORTS OF DIZZINESS, NAUSEA, AND BLURRED VISION SX YESTERDAY. PT UNSURE IF SHE HAS A MA BECAUSE "ALL I CAN FEEL IS DIZZINESS." REPORTS SHE SEES A NEUROLOGIST BECAUSE SHE HAS BEEN HAVING NEURO PROBLEMS LATELY AND HAS ANOTHER APPT W HIM ON APRIL 01. PT SEEKING ED CARE TODAY BECAUSE SHE FEELS LIKE SHE IS GOING TO PASS OUT. PT A&OX4. Source: patient, old records Exam Limitations: no limitations History of Present Illness Date Seen by Provider: Mar 24, 2021 Time Seen by Provider: 17:20 Initial Comments This 40-year-old woman presents to the emergency room with primary complaint of "I feel like I am going to pass out". This sensation of "dizziness" is not changed with position or activity. She has been feeling this way since yesterday with symptoms worse today. She has not had any syncope or near syncope. She also describes a vague heavy feeling in her head. She states this is not a pain necessarily but a heavy feeling. She frequently places her hand on her head during her conversation. She has had nausea without vomiting. She has had a long history of neurologic problems and related symptoms. She has been in work-up and treatment with a neurologist at [facility]. She has been treated for vitamin B12 deficiency and has been noted to have vitamin D deficiency. She denies having any high-dose vitamin D replacement therapy. She has been receiving vitamin B12 injections. She has no focal deficits. She is ambulatory. She has had multiple visits and imaging studies in her medical record here. These were reviewed. She has multiple medication allergies that limit her treatment and evaluation options. Allergies and Home Medications Allergies Coded Allergies: ketorolac tromethamine (Verified Allergy, Mild, 05/16/12) Iodinated Contrast Media (Unverified Allergy, Unknown, 04/24/15) butorphanol (Unverified Allergy, Unknown, LOST SIGHT, 04/24/15) codeine (Verified Allergy, Unknown, 09/12/05) folic acid (Verified Allergy, Unknown, 07/11/06) hydrocodone (Verified Allergy, Unknown, 09/06/18) iron (Verified Allergy, Unknown, 07/11/06) latex (Verified Allergy, Unknown, 07/11/06) morphine (Verified Allergy, Unknown, 08/07/16) oxycodone (Verified Allergy, Unknown, 09/06/18) penicillin G (Verified Allergy, Unknown, 07/11/06) tramadol (Verified Allergy, Unknown, 09/12/05) Patient Home Medication List Home Medication List Reviewed: Yes Albuterol Sulfate (Ventolin Hfa) 1 Puff Puff, 2 PUFF INH Q4H, (Reported) Entered as Reported by: FREDI MCCABE on 09/06/18 1011 Prednisone (Prednisone) 20 Mg Tab, 40 MG PO DAILY Prescribed by: RICKEY SARABIA on 11/17/20 1859 Promethazine HCl (Promethazine Tablet) 25 Mg Tablet, 25 MG PO Q6H PRN for NAUSEA/VOMITING Prescribed by: WHIT SZYMANSKI on 02/17/19113 Sucralfate (Carafate) 1 Gm Tablet, 1 GM PO QIDACHS Prescribed by: WHIT SZYMANSKI on 02/17/19113 Tapentadol HCl (Nucynta) 50 Mg Tablet, 50 MG PO Q6H PRN for PAIN-SEVERE Prescribed by: NISH AVENDAÑO on 09/06/182047 Review of Systems Review of Systems Constitutional: no symptoms reported Eyes: No Symptoms Reported Ears, Nose, Mouth, Throat: no symptoms reported Respiratory: no symptoms reported Cardiovascular: see HPI Gastrointestinal: see HPI Genitourinary: no symptoms reported : No Musculoskeletal: no symptoms reported Skin: no symptoms reported Psychiatric/Neurological: See HPI Endocrine: No Symptoms Reported Hematologic/Lymphatic: No Symptoms Reported Past Ggjufhi-Nsssrd-Mhykzc Hx Patient Social History Tobacco Use?: Yes Tobacco type used: Cigarettes Smoking Status: Current Everyday Smoker Use of E-Cig and/or Vaping dev: No Substance use?: No Alcohol Use?: No Immunizations Up To Date Tetanus Booster (TDap): Unknown PED Vaccines UTD: Yes Seasonal Allergies Seasonal Allergies: Yes Past Medical History Surgery/Hospitalization HX: HYSTERECTOMY/BILATERAL SALPINGOOOPHORECTOMY LAPAROSCOPY CHOLECYSTECTOMY APPENDECTOMY Surgeries: Yes (wisdom teeth, laporotomy) Abdominal, Appendectomy, Eye Surgery, Gallbladder, Hysterectomy, Oophorectomy Respiratory: Yes Asthma Currently Using CPAP: No Currently Using BIPAP: No Cardiac: No Neurological: Yes Headaches /Migraines Reproductive Disorders: Yes (MENORRHAGIA, CERVICAL DYSPLASIA) 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, 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 Sexually Transmitted Disease: Yes (+ TRICHOMONAS ON UA 08/03/18) HIV/AIDS: No Genitourinary: Yes UTI-Chronic Gastrointestinal: Yes Chronic Diarrhea, Gall Bladder Disease Musculoskeletal: No Endocrine: No HEENT: No (WEARS GLASSES, SEVERAL BROKEN TEETH) Cancer: No Psychosocial: No Integumentary: No Blood Disorders: No Family Medical History Asthma SON SON FH: cancer AUNT UNCLE No Pertinent Family Hx Physical Exam Vital Signs Vital Signs - First Documented 03/24/21 16:49 Temp 35.9 Pulse 91 Resp 20 B/P (MAP) 107/64 (78) Pulse Ox 100 O2 Delivery Room Air Capillary Refill : Less Than 3 Seconds Height, Weight, BMI Height: 5'3.00" Weight: 185lbs. 0.0oz. 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 nml as tested, no motor/sensory deficits, alert, normal mood/affect, oriented x 3 Crainal Nerves: normal hearing, normal speech, PERRL Coordination/Gait: normal finger to nose (Normal qaxs-xx-ppge) Motor/Sensory: no motor deficit, no sensory deficit Skin: normal color, warm/dry Progress/Results/Core Measures Results/Orders Lab Results Laboratory Tests Test 03/24/21 16:55 03/24/21 17:47 Range/Units White Blood Count 10.8 4.3-11.0 10^3/uL Red Blood Count 4.43 3.80-5.11 10^6/uL Hemoglobin 14.3 11.5-16.0 g/dL Hematocrit 42 35-52 % Mean Corpuscular Volume 95 80-99 fL Mean Corpuscular Hemoglobin 32 25-34 pg Mean Corpuscular Hemoglobin Concent 34 32-36 g/dL Red Cell Distribution Width 12.2 10.0-14.5 % Platelet Count 270 130-400 10^3/uL Mean Platelet Volume 11.4 9.0-12.2 fL Immature Granulocyte % (Auto) 0 % Neutrophils (%) (Auto) 54 42-75 % Lymphocytes (%) (Auto) 36 12-44 % Monocytes (%) (Auto) 6 0-12 % Eosinophils (%) (Auto) 3 0-10 % Basophils (%) (Auto) 1 0-10 % Neutrophils # (Auto) 5.8 1.8-7.8 10^3/uL Lymphocytes # (Auto) 3.9 1.0-4.0 10^3/uL Monocytes # (Auto) 0.7 0.0-1.0 10^3/uL Eosinophils # (Auto) 0.3 0.0-0.3 10^3/uL Basophils # (Auto) 0.1 0.0-0.1 10^3/uL Immature Granulocyte # (Auto) 0.0 0.0-0.1 10^3/uL Sodium Level 141 135-145 MMOL/L Potassium Level 3.3 L 3.6-5.0 MMOL/L Chloride Level 107 98-107 MMOL/L Carbon Dioxide Level 27 21-32 MMOL/L Anion Gap 7 5-14 MMOL/L Blood Urea Nitrogen 7 7-18 MG/DL Creatinine 0.80 0.60-1.30 MG/DL Estimat Glomerular Filtration Rate 80 BUN/Creatinine Ratio 9 Glucose Level 92 70-105 MG/DL Calcium Level 9.8 8.5-10.1 MG/DL Corrected Calcium 9.6 8.5-10.1 MG/DL Magnesium Level 1.8 1.6-2.4 MG/DL Total Bilirubin 0.4 0.1-1.0 MG/DL Aspartate Amino Transf (AST/SGOT) 24 5-34 U/L Alanine Aminotransferase (ALT/SGPT) 41 0-55 U/L Alkaline Phosphatase 68 40-136 U/L Total Protein 7.0 6.4-8.2 GM/DL Albumin 4.3 3.2-4.5 GM/DL Serum Test, Qualitative NEGATIVE NEGATIVE Urine Color YELLOW Urine Clarity CLEAR Urine pH 6.0 5-9 Urine Specific [place] 1.010 L 1.016-1.022 Urine Protein NEGATIVE NEGATIVE Urine Glucose (UA) NEGATIVE NEGATIVE Urine Ketones NEGATIVE NEGATIVE Urine Nitrite NEGATIVE NEGATIVE Urine Bilirubin NEGATIVE NEGATIVE Urine Urobilinogen 0.2 < = 1.0 MG/DL Urine Leukocyte Esterase TRACE H NEGATIVE Urine RBC (Auto) NEGATIVE NEGATIVE Urine RBC NONE /HPF Urine WBC 0-2 /HPF Urine Crystals PRESENT H /LPF Urine Amorphous Sediment RARE JANICE URATES H /LPF Urine Bacteria TRACE /HPF Urine Casts NONE /LPF Urine Mucus NEGATIVE /LPF Urine Culture Indicated NO My Orders Orders - AUBREY DEVLIN MD Cbc With Automated Diff (03/24/21:31) Comprehensive Metabolic Panel (03/24/21) Hcg,Qualitative Serum (03/24/21) Magnesium (03/24/21:) Ua Culture If Indicated (03/24/21:) Ed Iv/Invasive Line Start (03/24/21) Monitor-Rhythm Ecg Trace Only (03/24/21:) Ed Iv/Invasive Line Start (03/24/21:) Lactated Ringers (Lr 1000 Ml Iv Solution (03/24/21 17:45) Promethazine Injection (Phenergan Injec (03/24/21 17:45) Vitamin D 25-Hydroxy (03/24/21 20:01) Vitamin B 12 (03/24/21 20:01) Medications Given in ED Vital Signs/I&O 03/24/21 03/24/21 16:49 20:16 Temp 35.9 Pulse 91 85 Resp 20 20 B/P (MAP) 107/64 (78) 103/76 Pulse Ox 100 99 O2 Delivery Room Air Room Air Blood Pressure Mean: 78 Progress Progress Note : Progress Note Patient was treated with IV fluids and Phenergan without much improvement. Labs were unremarkable. Between her work-up today and prior evaluations, I am not sure there is much more to offer her in options for work-up in the ER. I did offer to check her vitamin D and vitamin B12 levels which would be send out test. She asked me to proceed with these evaluations. She was being discharged after shift change. I offered her a transfer of care to Dr. Szymanski for a second opinion. She declined it stating she needed to get her son to bed and prepared for school tomorrow. I did check a standing blood pressure prior to discharge and she demonstrated no significant change. Patient was discharged in stable condition. Departure Impression Primary Impression: Lightheadedness Additional Impressions: Vitamin D deficiency Vitamin B12 deficiency Disposition: HOME, SELF-CARE Condition: Stable Departure-Patient Inst. Decision time for Depature: 20:06 Referrals: HEVER DOHERTY MD (PCP/Family) Primary Care Physician Patient Instructions: Vitamin B12 Deficiency and Folic Acid Deficiency, Vitamin D Deficiency Add. Discharge Instructions: Contact your neurologist in the morning to report your symptoms. Follow-up with your primary care provider soon as possible. You have a vitamin B 12 and vitamin D level pending with the hospital lab. Please follow-up on these results with your doctors. Return to the ER if you have worsening symptoms. Call with questions or concerns. All discharge instructions reviewed with patient and/or family. Voiced understanding. Copy Copies To 1: HEVER DOHERTY MD, JOSHUA T MD Mar 24, 2021 20:08
[2021-03-24 20:16] VITALS: BP 103/76
== END 2021-03-24 20:16 | disposition home or self-care (01) ==
LOC: EDUNIT# 16:43 → ER 16:44
DX: R42 Dizziness and giddiness (principal); E55.9 Vitamin D deficiency, unspecified; E53.8 Deficiency of other specified B group vitamins; J45.909 Unspecified asthma, uncomplicated; F17.210 Nicotine dependence, cigarettes, uncomplicated; Z79.52 Long term (current) use of systemic steroids
CPT/HCPCS: 36415; 80053; 81000; 82306; 82607; 83735; 84703; 85025; 93041

== ENCOUNTER 2021-08-05 23:45 | Emergency (ER) | payer MEDICAID ==
[~2021-08-05] VITALS: Ht 160 cm; Wt 84.1 kg
[2021-08-06 00:05] VITALS: BP 123/83
[2021-08-06] MEDS ORDERED: KETOROLAC 30 MG/ML VIAL IVP ONE (00:30)
[2021-08-06] MEDS ORDERED: ONDANSETRON 4 MG/2 ML (SDV) Z0FRAN IVP ONE (00:30)
[2021-08-06] MEDS ORDERED: LACTATED RINGERS 1,000 ML IV ONE (00:30)
[2021-08-06 00:55] LABS: BASOPHILS # (AUTO) 0.1 10^3/uL (0.0-0.1); BASOPHILS % (AUTO) 1 % (0-10); EOSINOPHILS # (AUTO) 0.4 10^3/uL (0.0-0.3); EOSINOPHILS % (AUTO) 5 % (0-10); HEMATOCRIT 42 % (35-52); HEMOGLOBIN 14.2 g/dL (11.5-16.0); LYMPHOCYTES # (AUTO) 4.1 10^3/uL (1.0-4.0); LYMPHOCYTES % (AUTO) 45 % (12-44); MEAN CORPUSCULAR HEMOGLOBIN 32 pg (25-34); MEAN CORPUSCULAR HGB CONC 34 g/dL (32-36); MEAN CORPUSCULAR VOLUME 94 fL (80-99); MEAN PLATELET VOLUME 11.1 fL (9.0-12.2); MONOCYTES # (AUTO) 0.5 10^3/uL (0.0-1.0); MONOCYTES % (AUTO) 6 % (0-12); NEUTROPHILS % (AUTO) 45 % (42-75); PLATELET COUNT 257 10^3/uL (130-400); WHITE BLOOD COUNT 9.1 10^3/uL (4.3-11.0)
[2021-08-06 01:06] LABS: ALBUMIN 4.3 GM/DL (3.2-4.5); POTASSIUM 3.2 MMOL/L (3.6-5.0)
[2021-08-06 01:07] LABS: CALCIUM 9.4 MG/DL (8.5-10.1)
[2021-08-06 01:10] LABS: BILIRUBIN,TOTAL 0.5 MG/DL (0.1-1.0)
[2021-08-06 01:12] LABS: CREATININE SERUM 0.71 MG/DL (0.60-1.30)
[2021-08-06 01:16] LABS: MAGNESIUM 2.1 MG/DL (1.6-2.4)
[2021-08-06] MEDS ORDERED: MAGNESIUM 1 GM/100 ML IVPB 100 ML IV ONE (02:00)
--- NOTE | 2021-08-08 07:05 | ED Headache ---
General Chief Complaint: Head/Cervical Problems Stated Complaint: THINKS SHE HAS MENINGITIS,TERRIBLE MA,STIFF NECK, Nursing Triage Note: Arrives per POV w/ c/o headache and photophobia. Pt states that friend of hers had "menninigitis" last week. Pt able to rotate head, flex and extend w/ difficulty. Source: patient Exam Limitations: no limitations History of Present Illness Date Seen by Provider: Aug 06, 2021 Time Seen by Provider: 00:20 Initial Comments This 40-year-old woman presents to the emergency room with primary complaint of intense headache with photophobia and associated nausea and vomiting. She does have a history of intense headaches in the past. She is concerned because of a "meningitis" exposure at work last week. She denies fever, cough, change in taste or smell, or other signs or symptoms of infectious illness. She has taken some hqib-pfd-blhdscd medications without relief. She reported neck stiffness but she is observed to flex her neck without significant difficulty during exam. Allergies and Home Medications Allergies Coded Allergies: ketorolac tromethamine (Verified Allergy, Mild, 05/16/12) Iodinated Contrast Media (Unverified Allergy, Unknown, 04/24/15) butorphanol (Unverified Allergy, Unknown, LOST SIGHT, 04/24/15) codeine (Verified Allergy, Unknown, 09/12/05) folic acid (Verified Allergy, Unknown, 07/11/06) hydrocodone (Verified Allergy, Unknown, 09/06/18) iron (Verified Allergy, Unknown, 07/11/06) latex (Verified Allergy, Unknown, 07/11/06) morphine (Verified Allergy, Unknown, 08/07/16) oxycodone (Verified Allergy, Unknown, 09/06/18) penicillin G (Verified Allergy, Unknown, 07/11/06) tramadol (Verified Allergy, Unknown, 09/12/05) Patient Home Medication List Home Medication List Reviewed: Yes Albuterol Sulfate (Ventolin Hfa) 1 Puff Puff, 2 PUFF INH Q4H, (Reported) Entered as Reported by: FREDI MCCABE on 09/06/18 1011 Prednisone (Prednisone) 20 Mg Tab, 40 MG PO DAILY Prescribed by: RICKEY SARABIA on 11/17/20 4348 Promethazine HCl (Promethazine Tablet) 25 Mg Tablet, 25 MG PO Q6H PRN for NAUSEA/VOMITING Prescribed by: WHIT GERMAIN on 02/17/19113 Sucralfate (Carafate) 1 Gm Tablet, 1 GM PO QIDACHS Prescribed by: WHIT GERMAIN on 02/17/19113 Tapentadol HCl (Nucynta) 50 Mg Tablet, 50 MG PO Q6H PRN for PAIN-SEVERE Prescribed by: NISH AVENDAÑO on 09/06/182047 Review of Systems Review of Systems Constitutional: no symptoms reported Eyes: See HPI Ears, Nose, Mouth, Throat: no symptoms reported Respiratory: no symptoms reported Cardiovascular: no symptoms reported Gastrointestinal: see HPI Genitourinary: no symptoms reported Musculoskeletal: no symptoms reported Skin: no symptoms reported Psychiatric/Neurological: See HPI Past Qlpwyaw-Ydyije-Eqtcra Hx Patient Social History Tobacco Use?: Yes Immunizations Up To Date Tetanus Booster (TDap): Unknown PED Vaccines UTD: Yes Seasonal Allergies Seasonal Allergies: Yes Past Medical History Surgery/Hospitalization HX: HYSTERECTOMY/BILATERAL SALPINGOOOPHORECTOMY LAPAROSCOPY CHOLECYSTECTOMY APPENDECTOMY Surgeries: Yes (wisdom teeth, laporotomy) Abdominal, Appendectomy, Eye Surgery, Gallbladder, Hysterectomy, Oophorectomy Respiratory: Yes Asthma Currently Using CPAP: No Currently Using BIPAP: No Cardiac: No Neurological: Yes (Vitamin D deficiency) Headaches /Migraines Reproductive Disorders: Yes (MENORRHAGIA, CERVICAL DYSPLASIA) 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, 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 Sexually Transmitted Disease: Yes (+ TRICHOMONAS ON UA 08/03/18) HIV/AIDS: No Genitourinary: Yes UTI-Chronic Gastrointestinal: Yes Chronic Diarrhea, Gall Bladder Disease Musculoskeletal: No Endocrine: No HEENT: No (WEARS GLASSES, SEVERAL BROKEN TEETH) Cancer: No Psychosocial: No Integumentary: No Blood Disorders: No Family Medical History Asthma SON SON FH: cancer AUNT UNCLE No Pertinent Family Hx Physical Exam Vital Signs Vital Signs - First Documented 08/06/21 00:05 Temp 36.0 Pulse 82 Resp 20 B/P (MAP) 123/83 (96) Pulse Ox 99 Capillary Refill : Less Than 3 Seconds Height, Weight, BMI Height: 5'3.00" Weight: 185lbs. 0.0oz. 83.775052nm; 32.00 BMI Method:Stated General Appearance: WD/WN, mild distress HEENT: PERRL/EOMI, normal ENT inspection, TMs normal Neck: normal inspection, other (Tense tender musculature in the posterior paraspinous muscles. No nuchal rigidity.) Cardiovascular: regular rate, rhythm, no edema, no murmur Respiratory: lungs clear, normal breath sounds, no respiratory distress Gastrointestinal: non tender, soft Extremities: normal inspection, no pedal edema Psychiatric: alert, oriented x 3 Crainal Nerves: normal hearing, normal speech, PERRL Motor/Sensory: no motor deficit, no sensory deficit Skin: normal color, warm/dry Progress/Results/Core Measures Results/Orders Lab Results Laboratory Tests Test 08/06/21 00:40 Range/Units White Blood Count 9.1 4.3-11.0 10^3/uL Red Blood Count 4.48 3.80-5.11 10^6/uL Hemoglobin 14.2 11.5-16.0 g/dL Hematocrit 42 35-52 % Mean Corpuscular Volume 94 80-99 fL Mean Corpuscular Hemoglobin 32 25-34 pg Mean Corpuscular Hemoglobin Concent 34 32-36 g/dL Red Cell Distribution Width 12.1 10.0-14.5 % Platelet Count 257 130-400 10^3/uL Mean Platelet Volume 11.1 9.0-12.2 fL Immature Granulocyte % (Auto) 0 % Neutrophils (%) (Auto) 45 42-75 % Lymphocytes (%) (Auto) 45 H 12-44 % Monocytes (%) (Auto) 6 0-12 % Eosinophils (%) (Auto) 5 0-10 % Basophils (%) (Auto) 1 0-10 % Neutrophils # (Auto) 4.0 1.8-7.8 10^3/uL Lymphocytes # (Auto) 4.1 H 1.0-4.0 10^3/uL Monocytes # (Auto) 0.5 0.0-1.0 10^3/uL Eosinophils # (Auto) 0.4 H 0.0-0.3 10^3/uL Basophils # (Auto) 0.1 0.0-0.1 10^3/uL Immature Granulocyte # (Auto) 0.0 0.0-0.1 10^3/uL Sodium Level 141 135-145 MMOL/L Potassium Level 3.2 L 3.6-5.0 MMOL/L Chloride Level 109 H 98-107 MMOL/L Carbon Dioxide Level 21 21-32 MMOL/L Anion Gap 11 5-14 MMOL/L Blood Urea Nitrogen 6 L 7-18 MG/DL Creatinine 0.71 0.60-1.30 MG/DL Estimat Glomerular Filtration Rate 111 BUN/Creatinine Ratio 8 Glucose Level 93 70-105 MG/DL Calcium Level 9.4 8.5-10.1 MG/DL Corrected Calcium 9.2 8.5-10.1 MG/DL Magnesium Level 2.1 1.6-2.4 MG/DL Total Bilirubin 0.5 0.1-1.0 MG/DL Aspartate Amino Transf (AST/SGOT) 22 5-34 U/L Alanine Aminotransferase (ALT/SGPT) 28 0-55 U/L Alkaline Phosphatase 61 40-136 U/L C-Reactive Protein High Sensitivity 0.04 0.00-0.50 MG/DL Total Protein 7.0 6.4-8.2 GM/DL Albumin 4.3 3.2-4.5 GM/DL My Orders Orders - AUBREY DEVLIN MD Cbc With Automated Diff (08/06/21 00:20) Comprehensive Metabolic Panel (08/06/21 00:20) Hs C Reactive Protein (08/06/21 00:20) Magnesium (08/06/21 00:20) Ed Iv/Invasive Line Start (08/06/21 00:20) Lactated Ringers (Lr 1000 Ml Iv Solution (08/06/21 00:30) Ondansetron Injection (Zofran Injectio (08/06/21 00:30) Ketorolac Injection (Toradol Injection) (08/06/21 00:30) Magnesium 1 Gm/100 Ml Ivpb (Magnesium Wang (08/06/21 02:00) Vital Signs/I&O 08/06/21 00:05 Temp 36.0 Pulse 82 Resp 20 B/P (MAP) 123/83 (96) Pulse Ox 99 Blood Pressure Mean: 96 Progress Progress Note : Progress Note Patient was treated with Zofran, Toradol, and IV fluids. She was offered Norflex, Phenergan, and additional pain medication, but she declined because she needed to drive home and would not be able to procure a ride. A gram of magnesium was ordered to further treat her headache. Patient eventually left AGAINST MEDICAL ADVICE prior to completing her work-up and treatment. I did have a chance to review her chart after she left and noted that she was seen for some similar symptoms in March. At that time a vitamin D level was obtained and she was noted to be severely deficient in vitamin D with vitamin D 25 OH of 16.5. 08/08/2021 07:14 - I was able to contact the patient this morning and informed her of the vitamin D deficiency from her prior visit. Apparently she had not followed up on that test and was not aware she had significant vitamin D deficiency. I advised her to follow-up with Dr. Doherty as soon as possible to have her vitamin D level checked again. In the meantime, I recommended that she get gpbm-enx-uravoin vitamin D and take 5000 units daily with a meal. I also recommended that she try to get 15 minutes of direct sun exposure daily to boost vitamin D levels. She was appreciative of the phone call and indicated she plan to follow through with these recommendations. Patient stated she left AGAINST MEDICAL ADVICE because there was a screaming child in the ER and she could not tolerate the loud sound with her headache. Departure Impression Primary Impression: Acute headache Qualified Codes: G44.209 - Tension-type headache, unspecified, not intractable Additional Impressions: Muscle tension headache Vitamin D deficiency Disposition: AGAINST MEDICAL ADVICE Condition: Against Medical Advice Departure-Patient Inst. Referrals: HEVER DOHERTY MD (PCP) Primary Care Physician Copy Copies To 1: HEVER DOHERTY MD, JOSHUA T MD Aug 08, 2021 07:05
== END 2021-08-06 02:59 | disposition left against medical advice (07) ==
LOC: EDUNIT# 23:45 → ER 23:48
DX: G44.209 Tension-type headache, unspecified, not intractable (principal); E55.9 Vitamin D deficiency, unspecified; Z72.0 Tobacco use; Z91.040 Latex allergy status
CPT/HCPCS: 36415; 80053; 83735; 85025; 86141

== ENCOUNTER → 2021-10-21 | Outpatient (CLI) | payer MEDICAID ==
[~2021-10-21] MED LIST changes: +GADOTERATE 0.5 MMOL/ML (CLARISCAN) 20 ML VIAL IV ONE
--- NOTE | 2021-10-21 10:15 | Diagnostic Imaging Report ---
EXAM: MRI BRAIN PITUITARY W/WO CON INDICATION: Photophobia. COMPARISON: CT head without contrast 03/12/2021. MRI brain without and with IV contrast 12/02/2019. FINDINGS: No abnormal intracranial signal or enhancement. No restricted water diffusion. No hemosiderin deposition or evidence of intracranial hemorrhage. Dedicated sequences of the orbits demonstrate normal morphology with no suspicious mass or enhancement. The optic nerves are symmetric in size and signal without abnormal enhancement. The globes are negative. Dedicated sequences to the level of the sella demonstrate a partially empty sella. No suspicious mass or enhancement. Midline infundibulum. Normal optic chiasm and cavernous sinuses. Normal morphology of the major midline structures, posterior fossa and cerebellar pontine angle. Normal intracranial flow voids. No hydrocephalus or extra-axial fluid collections. Minimal mucosal thickening in the right maxillary sinus. The mastoids are clear. IMPRESSION: 1. Normal MRI of the brain without and with IV contrast. No acute findings. 2. Dedicated sequences to the level of the orbits are negative. 2. Dedicated sequences to the level of the sella demonstrate an incidental partially empty sella. No suspicious pituitary enhancement or mass. Dictated by: Dictated on workstation # [id number]
== END ==
LOC: RAD 07:40
PROVIDERS: ATTEND Family Medicine
DX: H53.143 Visual discomfort, bilateral (principal); R51.9 Headache, unspecified
CPT/HCPCS: 70553

== ENCOUNTER → 2021-12-04 | Outpatient (CLI) | payer MEDICAID ==
[~2021-12-04] MED LIST changes: -GADOTERATE 0.5 MMOL/ML (CLARISCAN) 20 ML VIAL IV ONE
== END ==
LOC: CARD 07:57
PROVIDERS: ATTEND Internal Medicine Cardiovascular Disease
DX: I10 Essential (primary) hypertension (principal); I25.10 Atherosclerotic heart disease of native coronary artery without angina pectoris
CPT/HCPCS: 93306

== ENCOUNTER → 2022-12-14 | Emergency (ER) | payer MEDICAID ==
[~2022-12-14] VITALS: Ht 160 cm; Wt 65.0 kg
[2022-12-14 01:50] VITALS: BP 127/82
--- NOTE | 2022-12-14 02:02 | ED Upper Extremity ---
General Chief Complaint: Laceration Stated Complaint: LAC ON RT THUMB Source: patient History of Present Illness Date Seen by Provider: Dec 14, 2022 Time Seen by Provider: 01:54 Initial Comments PT ARRIVES VIA POV FROM WORK AT [employer] PT C/O LACERATION TO RIGHT THUMB STATES SHE HIT/CAUGHT HER RIGHT THUMB ON THE CORNER OF A METAL SHELF AT WORK AND CAME STRAIGHT HERE. SHE DID NOT REPORT THE INJURY TO HER EMPLOYER. NO PARESTHESIAS OR MOTOR DEFICITS PT IS LEFT HANDED. LAST TETANUS 2018 OR 2019. PCP: DR. DOHERTY Allergies and Home Medications Allergies Coded Allergies: ketorolac tromethamine (Verified Allergy, Mild, 05/16/12) Iodinated Contrast Media (Unverified Allergy, Unknown, 04/24/15) butorphanol (Unverified Allergy, Unknown, LOST SIGHT, 04/24/15) codeine (Verified Allergy, Unknown, 09/12/05) folic acid (Verified Allergy, Unknown, 07/11/06) hydrocodone (Verified Allergy, Unknown, 09/06/18) iron (Verified Allergy, Unknown, 07/11/06) latex (Verified Allergy, Unknown, 07/11/06) morphine (Verified Allergy, Unknown, 08/07/16) oxycodone (Verified Allergy, Unknown, 09/06/18) penicillin G (Verified Allergy, Unknown, 07/11/06) tramadol (Verified Allergy, Unknown, 09/12/05) Patient Home Medication List Home Medication List Reviewed: Yes Albuterol Sulfate (Ventolin Hfa) 1 Puff Puff, 2 PUFF INH Q4H, (Reported) Entered as Reported by: FREDI MCCABE on 09/06/18 1011 Prednisone (Prednisone) 20 Mg Tab, 40 MG PO DAILY Prescribed by: RICKEY SARABIA on 11/17/20 1859 Promethazine HCl (Promethazine Tablet) 25 Mg Tablet, 25 MG PO Q6H PRN for NAUSEA/VOMITING Prescribed by: WHIT GERMAIN on 02/17/19113 Sucralfate (Carafate) 1 Gm Tablet, 1 GM PO QIDACHS Prescribed by: WHIT GERMAIN on 02/17/19113 Tapentadol HCl (Nucynta) 50 Mg Tablet, 50 MG PO Q6H PRN for PAIN-SEVERE Prescribed by: NISH AVENDAÑO on 09/06/182047 Review of Systems Constitutional: no symptoms reported Musculoskeletal: see HPI Skin: see HPI Psychiatric/Neurological: No Symptoms Reported Past Uputoyo-Myjgzc-Tvvhto Hx Patient Social History Tobacco Use?: Yes (1 PPD) Tobacco type used: Cigarettes Smoking Status: Current Everyday Smoker Substance use?: No Alcohol Use?: No Immunizations Up To Date Tetanus Booster (TDap): Unknown PED Vaccines UTD: Yes Seasonal Allergies Seasonal Allergies: Yes Past Medical History Surgery/Hospitalization HX: HYSTERECTOMY/BILATERAL SALPINGOOOPHORECTOMY LAPAROSCOPY CHOLECYSTECTOMY APPENDECTOMY Surgeries: Yes (wisdom teeth, laporotomy) Abdominal, Appendectomy, Eye Surgery, Gallbladder, Hysterectomy, Oophorectomy Respiratory: Yes Asthma Currently Using CPAP: No Currently Using BIPAP: No Cardiac: No Neurological: Yes (Vitamin D deficiency) Headaches /Migraines Reproductive Disorders: Yes (MENORRHAGIA, CERVICAL DYSPLASIA) 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 0.0oz. 83.748740dg; 32.00 BMI Method:Stated General Appearance: WD/WN, no apparent distress, other (REEKS OF CIGARETTES, WEARING VERY DARK SUNGLASSES) Hand: Right (DORSAL ASPECT OF RIGHT THUMB WITH LESS THAN 1 CM LACERATION, SHALLOW. NO ACTIVE BLEEDING. FULL ROM, SENSORY/VASCULAR INTACT. ) Neurologic/Tendon: normal sensation, normal motor functions, normal tendon functions Neurologic/Psychiatric: no motor/sensory deficits, alert, oriented x 3 Skin: normal color, warm/dry Progress/Results/Core Measures Results/Orders My Orders Orders - WENDIE BROWN DO Wound Dressing-Ed (12/14/22 01:59) Progress Progress Note : Progress Note WOUND CLEANSED WITH CHLORHEXIDINE AND STERILE SALINE DRESSED WITH ANTIBIOTIC OINTMENT AND GAUZE WOUND IS SUPERFICIAL, SMALL AND NOT BLEEDING. NO REPAIR IS REQUIRED DISCUSSED WOUND CARE, SYMPTOMATIC TREATMENT, NEED FOR FOLLOW UP AND RETURN PRECAUTIONS. Departure Impression Primary Impression: Laceration of right thumb Disposition: 01 HOME, SELF-CARE Condition: Stable Departure-Patient Inst. Decision time for Depature: 02:00 Referrals: HEVER DOHERTY MD (PCP/Family) Primary Care Physician Patient Instructions: Wound Care ED Add. Discharge Instructions: ICE TO AREA AT 20 MINUTE INTERVALS CLEAN WOUND TWICE A DAY WITH ANTIBACTERIAL SOAP AND WATER, APPLY ANTIBIOTIC OINTMENT AND FRESH DRESSING TWICE A DAY ELEVATE HAND MUCH POSSIBLE FOLLOW UP WITH YOUR DR IF YOU HAVE ANY PROBLEMS All discharge instructions reviewed with patient and/or family. Voiced understanding. WENDIE BROWN DO Dec 14, 2022 02:02
== END ==
LOC: EDUNIT# 01:48 → ER 01:51
DX: S61.011A Laceration without foreign body of right thumb without damage to nail, initial encounter (principal); Z91.040 Latex allergy status; F17.210 Nicotine dependence, cigarettes, uncomplicated; Z28.310 Unvaccinated for COVID-19; W26.8XXA Contact with other sharp object(s), not elsewhere classified, initial encounter; Y92.59 Other trade areas as the place of occurrence of the external cause; Y99.0 Civilian activity done for income or pay
CPT/HCPCS: 99282

== ENCOUNTER 2022-12-27 16:10 | Emergency (ER) | payer MEDICAID ==
[~2022-12-27] VITALS: Ht 160 cm; Wt 74.3 kg
[2022-12-27 16:15] VITALS: BP 132/93
--- NOTE | 2022-12-27 16:24 | ED Chest Pain ---
General Chief Complaint: Chest Pain Stated Complaint: CHEST PAIN/SOA/JAW PAIN Nursing Triage Note: Patient ambulatory to ER via POV w complaint of jaw pain, chest pain. Patient states she cut herself recently and these sx have progressivley worsened overtime. Source: patient, family () Exam Limitations: no limitations History of Present Illness Date Seen by Provider: Dec 27, 2022 Time Seen by Provider: 16:13 Initial Comments 42-year-old female presents emerged department today for jaw pain chest pain and shortness of breath. She states she cut her right thumb at work about 2 weeks ago. She is concerned about possible tetanus. She has been in and out of her primary doctor's office as well as emergency departments including yesterday where she left AMA here because she was "tired of waiting." She did have going to [facility] for evaluation per her report. She was ultimately discharged. She describes significant crushing type chest pain with shortness of breath. She also states the pain radiates into her right jaw. She denies any fevers chills or cough. She has a history of asthma. Record review shows she was also here on 12/[address] of her chest which was negative. She also had a CT of her abdomen pelvis at that time which was negative. All other systems reviewed and negative except documented per HPI. Voice recognition software was used to help create this chart Allergies and Home Medications Allergies Coded Allergies: ketorolac tromethamine (Verified Allergy, Mild, 05/16/12) Iodinated Contrast Media (Unverified Allergy, Unknown, 04/24/15) butorphanol (Unverified Allergy, Unknown, LOST SIGHT, 04/24/15) codeine (Verified Allergy, Unknown, 09/12/05) folic acid (Verified Allergy, Unknown, 07/11/06) hydrocodone (Verified Allergy, Unknown, 09/06/18) iron (Verified Allergy, Unknown, 07/11/06) latex (Verified Allergy, Unknown, 07/11/06) morphine (Verified Allergy, Unknown, 08/07/16) oxycodone (Verified Allergy, Unknown, 09/06/18) penicillin G (Verified Allergy, Unknown, 07/11/06) tramadol (Verified Allergy, Unknown, 09/12/05) Patient Home Medication List Home Medication List Reviewed: Yes Albuterol Sulfate (Ventolin Hfa) 1 Puff Puff, 2 PUFF INH Q4H, (Reported) Entered as Reported by: FREDI MCCABE on 09/06/18 1011 Prednisone (Prednisone) 20 Mg Tab, 40 MG PO DAILY Prescribed by: RICKEY SARABIA on 11/17/20 185 Promethazine HCl (Promethazine Tablet) 25 Mg Tablet, 25 MG PO Q6H PRN for NAUSEA/VOMITING Prescribed by: WHIT GERMAIN on 02/17/19 011 Sucralfate (Carafate) 1 Gm Tablet, 1 GM PO QIDACHS Prescribed by: WHIT GERMAIN on 02/17/19 011 Tapentadol HCl (Nucynta) 50 Mg Tablet, 50 MG PO Q6H PRN for PAIN-SEVERE Prescribed by: NISH AVENDAÑO on 09/06/182047 Review of Systems Review of Systems Constitutional: see HPI Past Iuhlzvo-Dmqhhk-Qhvupb Hx Patient Social History Tobacco Use?: Yes Tobacco type used: Cigarettes Smoking Status: Current Everyday Smoker Substance use?: No Alcohol Use?: No Immunizations Up To Date Tetanus Booster (TDap): Unknown PED Vaccines UTD: Yes First/Initial COVID19 Vaccinat: N/A Seasonal Allergies Seasonal Allergies: Yes Past Medical History Surgery/Hospitalization HX: LAP LORE/HYSTERECTOMY/TUBAL LIGATION Surgeries: Yes (wisdom teeth, laporotomy) Abdominal, Appendectomy, Eye Surgery, Gallbladder, Hysterectomy, Oophorectomy Respiratory: Yes Asthma Currently Using CPAP: No Currently Using BIPAP: No Cardiac: No Neurological: Yes (Vitamin D deficiency) Headaches /Migraines Reproductive Disorders: Yes (MENORRHAGIA, CERVICAL DYSPLASIA) 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, 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 Sexually Transmitted Disease: Yes (+ TRICHOMONAS ON UA 08/03/18) HIV/AIDS: No Genitourinary: Yes UTI-Chronic Gastrointestinal: Yes Chronic Diarrhea, Gall Bladder Disease Musculoskeletal: No Endocrine: No HEENT: No (WEARS GLASSES, SEVERAL BROKEN TEETH) Cancer: No Psychosocial: No Integumentary: No Blood Disorders: No Family Medical History Asthma SON SON FH: cancer AUNT UNCLE No Pertinent Family Hx Physical Exam Vital Signs Vital Signs - First Documented 12/27/22 16:15 Temp 36.0 Pulse 101 Resp 20 B/P (MAP) 132/93 (106) Pulse Ox 100 O2 Delivery Room Air Capillary Refill : Less Than 3 Seconds Height, Weight, BMI Height: 5'3.00" Weight: 185lbs. 0.0oz. [id number]; 29.00 BMI Method:Stated General Appearance: No Apparent Distress, WD/WN HEENT: Normal ENT Inspection, Pharynx Normal Neck: Full Range of Motion, Normal Inspection, Non Tender, Supple Respiratory: Chest Non Tender, Lungs Clear, Normal Breath Sounds, No Accessory Muscle Use, No Respiratory Distress Cardiovascular: Regular Rate, Rhythm, No Murmur, Normal Peripheral Pulses Gastrointestinal: Normal Bowel Sounds, No Organomegaly, No Pulsatile Mass, Non Tender, Soft Neurologic/Psychiatric: Alert, Oriented x3, Normal Mood/Affect Skin: Normal Color, Warm/Dry Progress/Results/Core Measures Results/Orders Lab Results Laboratory Tests Test 12/27/22 16:21 Range/Units White Blood Count 14.1 H 4.3-11.0 10^3/uL Red Blood Count 4.52 3.80-5.11 10^6/uL Hemoglobin 14.5 11.5-16.0 g/dL Hematocrit 43 35-52 % Mean Corpuscular Volume 96 80-99 fL Mean Corpuscular Hemoglobin 32 25-34 pg Mean Corpuscular Hemoglobin Concent 33 32-36 g/dL Red Cell Distribution Width 12.8 10.0-14.5 % Platelet Count 334 130-400 10^3/uL Mean Platelet Volume 10.2 9.0-12.2 fL Immature Granulocyte % (Auto) 1 % Neutrophils (%) (Auto) 54 42-75 % Lymphocytes (%) (Auto) 38 12-44 % Monocytes (%) (Auto) 6 0-12 % Eosinophils (%) (Auto) 1 0-10 % Basophils (%) (Auto) 1 0-10 % Neutrophils # (Auto) 7.7 1.8-7.8 10^3/uL Lymphocytes # (Auto) 5.3 H 1.0-4.0 10^3/uL Monocytes # (Auto) 0.9 0.0-1.0 10^3/uL Eosinophils # (Auto) 0.1 0.0-0.3 10^3/uL Basophils # (Auto) 0.1 0.0-0.1 10^3/uL Immature Granulocyte # (Auto) 0.1 0.0-0.1 10^3/uL Neutrophils % (Manual) 56 % Lymphocytes % (Manual) 38 % Monocytes % (Manual) 6 % Eosinophils % (Manual) 0 % Basophils % (Manual) 0 % Band Neutrophils 0 % Blood Morphology Comment NORMAL Sodium Level 143 135-145 MMOL/L Potassium Level 3.5 L 3.6-5.0 MMOL/L Chloride Level 108 H 98-107 MMOL/L Carbon Dioxide Level 23 21-32 MMOL/L Anion Gap 12 5-14 MMOL/L Blood Urea Nitrogen 14 7-18 MG/DL Creatinine 0.80 0.60-1.30 MG/DL Estimat Glomerular Filtration Rate 95 BUN/Creatinine Ratio 18 Glucose Level 101 70-105 MG/DL Calcium Level 9.3 8.5-10.1 MG/DL Corrected Calcium 9.1 8.5-10.1 MG/DL Total Bilirubin 0.5 0.1-1.0 MG/DL Aspartate Amino Transf (AST/SGOT) 15 5-34 U/L Alanine Aminotransferase (ALT/SGPT) 15 0-55 U/L Alkaline Phosphatase 72 40-136 U/L Troponin I < 0.028 <0.028 NG/ML Total Protein 6.7 6.4-8.2 GM/DL Albumin 4.2 3.2-4.5 GM/DL My Orders Orders - MIGUELADALBERTO DO Comprehensive Metabolic Panel (12/27/22 16:20) Troponin I Dewitt (12/27/22 16:20) Ekg Tracing (12/27/22 16:20) Chest 1 View, Ap/Pa Only (12/27/22 16:20) Cbc With Automated Diff (12/27/22 16:20) Manual Differential (12/27/22 16:21) Vital Signs/I&O 12/27/22 12/27/22 16:15 17:20 Temp 36.0 Pulse 101 101 Resp 20 20 B/P (MAP) 132/93 (106) Pulse Ox 100 100 O2 Delivery Room Air Room Air Blood Pressure Mean: 106 Comment Sinus rhythm with a rate of 81 bpm. Normal intervals. Normal axis. No ST or T wave abnormalities. No ectopy. No STEMI. Departure Communication (Admissions) Initial differential diagnosis includes ACS, musculoskeletal pain, severe hypokalemia, pulmonary embolism, psychogenic. EKG is nonischemic, troponin is negative. She has had symptoms for several days with multiple negative work-ups making ACS extremely unlikely at this time. Potassium is mildly low but not severely so, doubt that this is causative. She has no risk factors or stigmata of pulmonary embolism at this time. She had a tetanus shot in the last 3 years. She had a minor cut to her finger so I highly doubt tetanus that she should still be within the antibiotic window when she was treated. She has no tetanic type spasms here in the emergency department. She be discharged home in stable condition with supportive care. I have independently reviewed all labs, chest x-ray and EKG. All findings above are interpreted by me. Impression Primary Impression: Chest pain Qualified Codes: R07.9 - Chest pain, unspecified Additional Impression: Jaw pain Disposition: HOME, SELF-CARE Condition: Stable Departure-Patient Inst. Referrals: HEVER DOHERTY MD (PCP/Family) Primary Care Physician Patient Instructions: Chest Pain That Is Not Caused by the Heart (DC) Add. Discharge Instructions: As discussed given your multiple negative work-ups at this time I think this is very low likelihood to be coming from your heart. Your lungs are clear on chest x-ray as well there is no evidence for pneumonia or collapsed lung. You have no risk factors for blood clots in your lungs. I do not think this is from tetanus as your tetanus shot was up-to-date at the time of your cut. Continue to work with your primary doctor for further evaluation and treatment recommendations. All discharge instructions reviewed with patient and/or family. Voiced understanding. ADALBERTO RIVERA DO Dec 27, 2022 16:24
[2022-12-27 16:27] LABS: BASOPHILS # (AUTO) 0.1 10^3/uL (0.0-0.1); BASOPHILS % (AUTO) 1 % (0-10); EOSINOPHILS # (AUTO) 0.1 10^3/uL (0.0-0.3); EOSINOPHILS % (AUTO) 1 % (0-10); HEMATOCRIT 43 % (35-52); HEMOGLOBIN 14.5 g/dL (11.5-16.0); LYMPHOCYTES # (AUTO) 5.3 10^3/uL (1.0-4.0); LYMPHOCYTES % (AUTO) 38 % (12-44); MEAN CORPUSCULAR HEMOGLOBIN 32 pg (25-34); MEAN CORPUSCULAR HGB CONC 33 g/dL (32-36); MEAN CORPUSCULAR VOLUME 96 fL (80-99); MEAN PLATELET VOLUME 10.2 fL (9.0-12.2); MONOCYTES # (AUTO) 0.9 10^3/uL (0.0-1.0); MONOCYTES % (AUTO) 6 % (0-12); NEUTROPHILS # (AUTO) 7.7 10^3/uL (1.8-7.8); NEUTROPHILS % (AUTO) 54 % (42-75); PLATELET COUNT 334 10^3/uL (130-400); WHITE BLOOD COUNT 14.1 10^3/uL (4.3-11.0)
--- NOTE | 2022-12-27 16:37 | Diagnostic Imaging Report ---
Indication: Chest pain Portable chest 4:38 PM Heart size and pulmonary vascularity are normal. Lungs are clear. There are no effusions or pneumothoraces. IMPRESSION: Negative chest Dictated by: Dictated on workstation # [id number]
[2022-12-27 16:41] LABS: ALBUMIN 4.2 GM/DL (3.2-4.5)
[2022-12-27 16:42] LABS: CHLORIDE 108 MMOL/L (98-107); POTASSIUM 3.5 MMOL/L (3.6-5.0); SODIUM 143 MMOL/L (135-145)
[2022-12-27 16:43] LABS: CALCIUM 9.3 MG/DL (8.5-10.1)
[2022-12-27 16:44] LABS: GLUCOSE 101 MG/DL (70-105); TOTAL PROTEIN 6.7 GM/DL (6.4-8.2)
[2022-12-27 16:45] LABS: CARBON DIOXIDE 23 MMOL/L (21-32)
[2022-12-27 16:46] LABS: BILIRUBIN,TOTAL 0.5 MG/DL (0.1-1.0)
[2022-12-27 16:48] LABS: ALKALINE PHOSPHATASE 72 U/L (40-136); GFR ESTIMATED 95
[2022-12-27 16:49] LABS: BUN/CREATININE RATIO 18
[2022-12-27 16:51] LABS: ALANINE AMINOTRANSFERASE 15 U/L (0-55)
[2022-12-27 17:07] LABS: BAND NEUTROPHILS 0 %; BASOPHILS % (MANUAL) 0 %; EOSINOPHILS % (MANUAL) 0 %; LYMPHOCYTES % (MANUAL) 38 %; MONOCYTES % (MANUAL) 6 %; NEUTROPHILS % (MANUAL) 56 %
[2022-12-27 17:08] LABS: RBC MORPH NORMAL
== END 2022-12-27 17:20 | disposition home or self-care (01) ==
LOC: EDUNIT# 16:10 → ER 16:12
DX: R07.89 Other chest pain (principal); R68.84 Jaw pain; E87.6 Hypokalemia; F17.210 Nicotine dependence, cigarettes, uncomplicated; Z28.310 Unvaccinated for COVID-19; Z91.040 Latex allergy status
CPT/HCPCS: 36415; 71045; 80053; 84484; 85007; 85027; 93005

== ENCOUNTER 2023-05-08 23:23 | Emergency (ER) | payer MEDICAID ==
[~2023-05-08] VITALS: Ht 160 cm; Wt 89.3 kg
--- NOTE | 2023-05-08 23:36 | ED Abdominal Pain ---
General Stated Complaint: KIDNEY PX,CAN'T URINATE Source of Information: Patient Exam Limitations: No Limitations History of Present Illness Date Seen by Provider: May 08, 2023 Time Seen by Provider: 23:36 Initial Comments Patient is a 42-year-old female who presents to the emergency room with a chief complaint of right posterior low back pain. She states onset of symptoms yesterday, not quite as severe as today. Symptoms were waxing and waning until this evening around 6:00. She went to [facility] urgent care, was tested for urinary tract infection they told her she did not have one. She states this evening she is now having trouble urinating, she feels like she needs to go but cannot. Denies dysuria. No abnormal vaginal discharge. Had a normal but loose bowel movement this morning. Denies fevers, chills, vomiting. She is holding onto her right flank, just above the posterior superior iliac crest. She complains of being very thirsty. Has had a history of a ureter being "clipped" and a hysterectomy however this has since been repaired. Also cholecystectomy appendectomy. All movements tend to make her right low back hurt. Tried 2 ibuprofen at 7 PM without relief. Only other medical history is "asthma". Does not take any other medications. Multiple allergies to multiple medications. States she urinated just a little bit prior to coming to the emergency department. Timing/Duration: 1-2 Days Severity/Quality: Severe Location: Flank (Right flank, right low back) Activities at Onset: None Modifying Factors: Worsens With Movement Allergies and Home Medications Allergies Coded Allergies: ketorolac tromethamine (Verified Allergy, Mild, 05/16/12) Iodinated Contrast Media (Unverified Allergy, Unknown, 04/24/15) butorphanol (Unverified Allergy, Unknown, LOST SIGHT, 04/24/15) codeine (Verified Allergy, Unknown, 09/12/05) folic acid (Verified Allergy, Unknown, 07/11/06) hydrocodone (Verified Allergy, Unknown, 09/06/18) iron (Verified Allergy, Unknown, 07/11/06) latex (Verified Allergy, Unknown, 07/11/06) morphine (Verified Allergy, Unknown, 08/07/16) oxycodone (Verified Allergy, Unknown, 09/06/18) penicillin G (Verified Allergy, Unknown, 07/11/06) tramadol (Verified Allergy, Unknown, 09/12/05) Patient Home Medication List Home Medication List Reviewed: Yes Albuterol Sulfate (Ventolin Hfa) 1 Puff Puff, 2 PUFF INH Q4H, (Reported) Entered as Reported by: FREDI MCCABE on 09/06/18 1011 Methylprednisolone (Methylprednisolone Dose Pack) 4 Mg Tab.ds.pk, 4 MG PO UD Prescribed by: HUSSAIN LEAL on 05/09/23 0146 Prednisone (Prednisone) 20 Mg Tab, 40 MG PO DAILY Prescribed by: RICKEY SARABIA on 11/17/20 1859 Promethazine HCl (Promethazine Tablet) 25 Mg Tablet, 25 MG PO Q6H PRN for NAUSEA/VOMITING Prescribed by: WHIT GERMAIN on 02/17/19 011 Sucralfate (Carafate) 1 Gm Tablet, 1 GM PO QIDACHS Prescribed by: WHIT GERMAIN on 02/17/19113 Tapentadol HCl (Nucynta) 50 Mg Tablet, 50 MG PO Q6H PRN for PAIN-SEVERE Prescribed by: NISH AVENDAÑO on 09/06/182047 Review of Systems Review of Systems Constitutional: see HPI EENTM: Other (Dry mouth) Respiratory: No Symptoms Reported Gastrointestinal: Nausea Genitourinary: Other (Decreased frequency) Musculoskeletal: back pain (Right low back) Skin: no symptoms reported Psychiatric/Neurological: Anxiety Past Yhwmvaa-Bzrohk-Zbjhxw Hx Immunizations Up To Date Tetanus Booster (TDap): Unknown PED Vaccines UTD: Yes First/Initial COVID19 Vaccinat: N/A Seasonal Allergies Seasonal Allergies: Yes Past Medical History Surgery/Hospitalization HX: LAP LORE/HYSTERECTOMY/TUBAL LIGATION Surgeries: Yes (wisdom teeth, laporotomy) Abdominal, Appendectomy, Eye Surgery, Gallbladder, Hysterectomy, Oophorectomy Respiratory: Yes Asthma Currently Using CPAP: No Currently Using BIPAP: No Cardiac: No Neurological: Yes (Vitamin D deficiency) Headaches /Migraines Reproductive Disorders: Yes (MENORRHAGIA, CERVICAL DYSPLASIA) 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, 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 Sexually Transmitted Disease: Yes (+ TRICHOMONAS ON UA 08/03/18) HIV/AIDS: No Genitourinary: Yes UTI-Chronic Gastrointestinal: Yes Chronic Diarrhea, Gall Bladder Disease Musculoskeletal: No Endocrine: No HEENT: No (WEARS GLASSES, SEVERAL BROKEN TEETH) Cancer: No Psychosocial: No Integumentary: No Blood Disorders: No Family Medical History Asthma SON SON FH: cancer AUNT UNCLE No Pertinent Family Hx Physical Exam Vital Signs Vital Signs - First Documented 05/08/23 23:38 Temp 37.0 Pulse 125 Resp 18 B/P (MAP) 114/87 (96) Pulse Ox 100 O2 Delivery Room Air Capillary Refill : Height/Weight/BMI Height: 5'3.00" Weight: 185lbs. 0.0oz. 83.441770xz; 29.00 BMI Method:Stated General Appearance: WD/WN, moderate distress, obese HEENT: PERRL/EOMI, other (All teeth broken, carious to the gumline; dry oral mucosa) Respiratory: lungs clear, normal breath sounds, no respiratory distress, no accessory muscle use Cardiovascular: regular rate, rhythm, tachycardia (110) Gastrointestinal: normal bowel sounds, non tender, soft Extremities: normal range of motion, normal inspection Back: other (point tenderness to the right SI joint, palpation intensifies pain. no overlying erythema, swelling/rash ) Neurologic/Psychiatric: alert, oriented x 3, other (Anxious) Skin: normal color, warm/dry Progress/Results/Core Measures Results/Orders Lab Results Laboratory Tests Test 05/09/23 00:16 Range/Units Urine Color YELLOW Urine Clarity CLEAR Urine pH 6.0 5-9 Urine Specific [place] 1.025 H 1.016-1.022 Urine Protein TRACE H NEGATIVE Urine Glucose (UA) NEGATIVE NEGATIVE Urine Ketones 1+ H NEGATIVE Urine Nitrite NEGATIVE NEGATIVE Urine Bilirubin NEGATIVE NEGATIVE Urine Urobilinogen 0.2 < = 1.0 MG/DL Urine Leukocyte Esterase NEGATIVE NEGATIVE Urine RBC (Auto) 2+ H NEGATIVE Urine RBC 2-5 H /HPF Urine WBC 0-2 /HPF Urine Squamous Epithelial Cells 2-5 /HPF Urine Crystals PRESENT H /LPF Urine Amorphous Sediment FEW JANICE URATES H /LPF Urine Bacteria TRACE /HPF Urine Casts NONE /LPF Urine Mucus MODERATE H /LPF Urine Culture Indicated NO My Orders Orders - HUSSAIN LEAL MD Diphenhydramine Injection (Diphenhydram (05/09/23 00:00) Ketorolac Injection (Ketorolac Injection (05/09/23 00:00) Dexamethasone Injection (Decadron Injec (05/09/23 00:00) Ns Iv 500 Ml (Ns Iv 500 Ml) (05/09/23 00:00) Bladder Scan (05/08/23 23:57) Ua Culture If Indicated (05/08/23 23:57) Ondansetron Injection (Ondansetron Inj (05/09/23 00:30) Ct Abd/Pelvis Wo(Kidney Stone) (05/09/23 00:43) Lidocaine 4% Patch (Salonpas 4% Patch) (05/09/23 01:41) Medications Given in ED Current Medications Medications Dose Ordered Sig/Berto Route Start Time Stop Time Status Last Admin Dose Admin Dexamethasone Sodium Phosphate 8 mg ONCE ONCE IV 05/09/23 00:00 05/09/23 00:01 DC 05/09/23 00:15 8 MG Diphenhydramine HCl 25 mg ONCE ONCE IVP 05/09/23 00:00 05/09/23 00:01 DC 05/09/23 00:16 25 MG Ketorolac Tromethamine 15 mg ONCE ONCE IVP 05/09/23 00:00 05/09/23 00:01 DC 05/09/23 00:16 15 MG Ondansetron HCl 8 mg ONCE ONCE IVP 05/09/23 00:30 05/09/23 00:31 DC 05/09/23 00:31 8 MG Vital Signs/I&O 05/08/23 23:38 Temp 37.0 Pulse 125 Resp 18 B/P (MAP) 114/87 (96) Pulse Ox 100 O2 Delivery Room Air Progress Progress Note : Time: 01:38 Progress Note Patient seen and evaluated by me. Evaluation today includes history and physical exam, urinalysis, CT scan renal stone protocol. Pertinent physical exam findings include well-developed well-nourished obese female in mild distress due to right posterior hip, SI joint pain. She does not tolerate exam very well but has point tenderness over the posterior superior iliac crest/SI joint. No overlying rashes, erythema, swelling/heat. She has intact range of motion to the bilateral lower extremities. Normal strength and sensation. No actual CVA tenderness. Abdomen is soft, nontender. Differential diagnosis renal colic, sacroiliitis, pyelonephritis, cystitis Labs independently reviewed and interpreted by me. Patient has a UA that has normal specific gravity, microscopic hematuria with 2-5 red blood cells per high-powered field. She has no significant bacteriuria. CT renal stone protocol read by stat rad shows no acute findings, no evidence of ureterolithias is, pyelonephritis or cystitis. Negative noncontrasted CT. Patient is treated in the emergency department with 500 cc of normal saline, 15 mg of Toradol IV, 8mg decadron and 25 mg of Benadryl. Subsequent to the Toradol which she states makes her nauseated she requested more nausea medicine, 8 mg of Zofran was administered. She had improvement in her discomfort. Discussed physical exam findings suggestive of sacroiliitis. Recommended Medrol Dosepak, encouraged ice and heat. Recommended also possibly diclofenac gel, [id number] lidocaine patches. She states that steroids sometimes increase her "paresthesias" for which she has been seen at in the past. 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 Return precautions provided in both verbal and written format. I encouraged her to follow-up with her primary care physician. All questions were sought and answered. Diagnostic Imaging Diagonstic Imaging: CT Comments CT renal stone protocol - per Stat Rad : No acute finding, no evidence of ur eterolithiasis, pyelonephritis, cystitis; normal CT Departure Impression Primary Impression: Sacroiliac joint pain Disposition: 01 HOME, SELF-CARE Condition: Improved Departure-Patient Inst. Decision time for Depature: 01:39 Referrals: HEVER DOHERTY MD (PCP/Family) Primary Care Physician Patient Instructions: Sacroiliac Joint Pain Add. Discharge Instructions: Alternate heat and ice to the sore area of your back. Take the medrol dose pack as directed (you may try and take the medication a little earlier throughout the day, not late at night to avoid sleep disturbance.) Always take steroids with food and consider an over the counter acid shift supervisor film processing such as Pepcid, daily while on the steroids. You can also rub Diclofenac gel (available over the counter) to the area - follow packaging instructions. Lidocaine patches are available over the counter as well. There are stretches you can look up online to help relieve sacro-iliac joint pa in. Follow up with your primary care provider. Return to the Emergency Department for any new, concerning or emergent complai nts. Scripts Methylprednisolone (Methylprednisolone Dose Pack) 4 Mg Tab.ds.pk 4 MG PO UD for 6 Days, #21 PKG PER DOSE PACK INSTRUCTIONS Prov: HUSSAIN LEAL MD 05/09/23 Copy Copies To 1: HEVRE DOHERTY MD, KATHRYN M MD May 08, 2023 23:36
[2023-05-09] MEDS ORDERED: KETOROLAC INJ 15 MG/ML VIAL IVP ONE
[2023-05-09] MEDS ORDERED: NS IV 500 ML 500 ML IV SCH
[2023-05-09] MEDS ORDERED: dexAMETHasone INJ 4 MG/ML SDV IV ONE
[2023-05-09] MEDS ORDERED: diphenhydrAMINE INJ 50 MG/ML VIAL IVP ONE
[2023-05-09] MEDS ORDERED: ONDANSETRON INJECTION 4 MG/2 ML (SDV) IVP ONE (00:30)
[2023-05-09 00:33] LABS: AMORPHOUS SEDIMENT,UR FEW AMOR URATES /LPF; BACTERIA,URINE TRACE /HPF; BILIRUBIN,URINE NEGATIVE (NEGATIVE); CLARITY,URINE CLEAR; COLOR,URINE YELLOW; GLUCOSE, URINE (UA) NEGATIVE (NEGATIVE); KETONES,URINE 1+ (NEGATIVE); LEUKOCYTE ESTERASE ,URINE NEGATIVE (NEGATIVE); NITRITE,URINE NEGATIVE (NEGATIVE); PROTEIN,URINE TRACE (NEGATIVE); WBC,URINE 0-2 /HPF
[2023-05-09] MEDS ORDERED: LIDOCAINE 4% PATCH TOP STA (01:41)
[2023-05-09] MEDS ORDERED: METH4TAB10 PO (01:46)
[2023-05-09 01:53] VITALS: BP 103/65
--- NOTE | 2023-05-09 06:56 | Diagnostic Imaging Report ---
PROCEDURE: CT urinary tract, rule out kidney stone. TECHNIQUE: Multiple contiguous axial images were obtained through the abdomen and pelvis without the use of intravenous contrast. Auto Exposure Controls were utilized during the CT exam to meet ALARA standards for radiation dose reduction. INDICATION: Flank pain, right abdominal pain. COMPARISON: 08/14/2018. FINDINGS: The visualized lung bases are clear. Cholecystectomy. The unenhanced liver and spleen are unremarkable. Small hypodense left adrenal gland nodule is again identified, not significantly changed from 2019 with a Hounsfield units of below 0. The unenhanced bilateral kidneys are unremarkable. Small fat-containing supraumbilical midline anterior abdominal wall hernia without associated fat stranding. Mild scattered vascular calcifications without aneurysmal dilatation of the abdominal aorta. The urinary bladder is decompressed, therefore not well evaluated. The uterus is not visualized, surgically absent. No abnormal adnexal mass lesion. No bowel obstruction or pneumatosis. Prior appendectomy. No significant adenopathy, free air, or free fluid within the abdomen or pelvis. Mild scattered osseous degenerative changes without acute osseous abnormality. IMPRESSION: No acute abnormality with postsurgical changes as above. Stable small left adrenal adenoma. Additional findings as above. Agree with preliminary interpretation. Dictated by: Dictated on workstation # [id number]
== END 2023-05-09 01:54 | disposition home or self-care (01) ==
LOC: EDUNIT# 23:23 → ER 23:25
DX: M53.3 Sacrococcygeal disorders, not elsewhere classified (principal); E66.9 Obesity, unspecified; Z68.29 Body mass index [BMI] 29.0-29.9, adult; Z91.040 Latex allergy status
CPT/HCPCS: 74176; 81000